=== PATIENT | male | born 1940 | race Caucasian/White ===

== ENCOUNTER → 2017-02-01 | Outpatient (CLI) | payer MEDICARE ==
[2017-02-01 10:10] LABS: Basophils % (A) 1 %; CH 30.8; CHCM 31.9; Eosinophils # (A) 0.3 k/uL (0-0.7); Eosinophils % (A) 6 %; HCT 44.3 % (39.0-53.0); HDW 2.13; Luc # (Auto) 0.11; Luc % (Auto) 3; Lymphocytes % (A) 22 %; MCH 30.7 pg (25.0-35.0); MCHC 31.7 g/dL (31.0-37.0); MCV 96.7 fL (80.0-100.0); Mean Platelet Volume 8.7; Monocytes # (A) 0.4 k/uL (0-1.0); Monocytes % (A) 8 %; Neutrophils # (A) 2.6 k/uL (1.3-7.7); Neutrophils % (A) 60 %; RBC 4.58 m/uL (4.30-5.90); WBC 4.3 k/uL (3.8-10.6); WBC (Perox) 4.31
[2017-02-01 11:37] LABS: ALT 38 U/L (21-72); AST 25 U/L (17-59); Alkaline Phosphatase 68 U/L (38-126); Anion Gap 8 mmol/L; Blood Urea Nitrogen 26 mg/dL (9-20); Calcium 9.9 mg/dL (8.4-10.2); Carbon Dioxide 30 mmol/L (22-30); Chloride 106 mmol/L (98-107); Cholesterol 167 mg/dL (<200); Glucose 95 mg/dL (74-99); HDL Cholesterol 63 mg/dL (40-60); Non-African American GFR(MDRD) >60 (>60 ml/min/1.73 sqM); Sodium 144 mmol/L (137-145)
== END | disposition home or self-care (01) ==
LOC: LABWHC1 08:32
PROVIDERS: ATTEND Internal Medicine Critical Care Medicine
DX: I10 Essential (primary) hypertension (principal); E78.5 Hyperlipidemia, unspecified; J45.909 Unspecified asthma, uncomplicated; R97.20 Elevated prostate specific antigen [PSA]; Z12.5 Encounter for screening for malignant neoplasm of prostate
CPT/HCPCS: 84439; 80061; 80053; 84443; 85025; 82306; 83036; 36415; G0103

== ENCOUNTER → 2018-02-14 | Outpatient (CLI) | payer MEDICARE, MEDICAID ==
[2018-02-14 11:16] LABS: Basophils % (A) 0 %; Eosinophils # (A) 0.2 k/uL (0-0.7); Eosinophils % (A) 4 %; HCT 42.5 % (39.0-53.0); HGB 13.5 gm/dL (13.0-17.5); Lymphocytes # (A) 1.1 k/uL (1.0-4.8); Lymphocytes % (A) 22 %; MCH 30.5 pg (25.0-35.0); MCHC 31.8 g/dL (31.0-37.0); MCV 95.9 fL (80.0-100.0); Mean Platelet Volume 7.6; Monocytes # (A) 0.4 k/uL (0-1.0); Monocytes % (A) 7 %; Neutrophils # (A) 3.3 k/uL (1.3-7.7); Neutrophils % (A) 64 %; Platelet Count 191 k/uL (150-450); RBC 4.43 m/uL (4.30-5.90); WBC 5.1 k/uL (3.8-10.6)
[2018-02-14 16:20] LABS: Albumin 4.5 g/dL (3.80-4.90); Albumin/Globulin Ratio 2.37 (1.20-2.10); Anion Gap 5.5 mmol/L (4.00-12.00); Calcium 9.8 mg/dL (8.7-10.3); Carbon Dioxide 30.5 mmol/L (21.6-31.8); Globulin 1.9 g/dL (2.1-3.7); Potassium 4.9 mmol/L (3.5-5.5); Total Bilirubin 0.7 mg/dL (0.3-1.2); Total Protein 6.4 g/dL (6.2-8.2)
[2018-02-14 16:29] LABS: T4, Free (Free Thyroxine) 1.3 ng/dL (0.80-1.80)
[2018-02-14 23:36] LABS: Hemoglobin A1C 5.1 % (4.0-6.0)
== END | disposition home or self-care (01) ==
LOC: LABWHC1 09:35
PROVIDERS: ATTEND Internal Medicine Critical Care Medicine
DX: I10 Essential (primary) hypertension (principal); J45.909 Unspecified asthma, uncomplicated; E78.00 Pure hypercholesterolemia, unspecified; J30.2 Other seasonal allergic rhinitis; R05 Cough; Z12.5 Encounter for screening for malignant neoplasm of prostate
CPT/HCPCS: 84439; 80061; 80053; 84443; 85025; 82306; 83036; 36415; G0103

== ENCOUNTER 2018-12-14 15:26 | Inpatient (IN) | payer MEDICARE, MEDICAID ==
[2018-12-14] MEDS ORDERED: DILTIAZEM DRIP BOLUS FROM BAG 1 MG SOLN IV ONE (16:41)
[2018-12-14] MEDS ORDERED: SODIUM CHLORIDE 0.9% 500 ML 500 ML IV STA (16:41)
[2018-12-14] MEDS ORDERED: SODIUM CHLORIDE 0.9% 1,000 ML IV STA (16:41)
[2018-12-14] MEDS ORDERED: DILTIAZEM 125 MG in SODIUM CHLORIDE 0.9% 100 ML IV SCH (16:45)
--- NOTE | 2018-12-14 16:46 | ED ---
Arrhythmia/Palpitations HPI - General Chief Complaint: Arrhythmia/Palpitations Stated Complaint: AFib Time Seen by Provider: 12/14/18 16:20 Source: patient, RN notes reviewed, old records reviewed Mode of arrival: ambulatory Limitations: no limitations - History of Present Illness Initial Comments: This is an 78-year-old male to ER for evaluation of elevated heart rate. Patient presents today from primary care's office, Dr. Ramos, for evaluation regards to irregular heart rate there were told by Dr. Mitchell she has atrial fibrillation. states patient's been some difficulty with breathing and shortness of breath at night, coughing and wheezing. Patient himself believes that he is waking up with some shortness of breath and especially has had it with activity. This was all related to asthma is been increasing amount of use of his rescue inhaler with no improvement. Significant travel history no [id number] to 4 days as well as to [place]. Symptoms have been persistent. Inhaler does not seem to help. No chest pain. No recent change in medications, denies any drug or alcohol. Patient does have high blood pressure, high cholesterol, with adult onset asthma MD Complaint: rapid heart beat, "heart racing" -: week(s) Context: occurred during exertion Arrhythmia History: atrial fibrillation Associated Symptoms: shortness of breath Treatments Prior to Arrival: other (No change in medications) - Related Data Home Medications Medication Instructions Recorded Confirmed Albuterol Sulfate [Proair Hfa] 1 - 2 puff INHALATION Q6HR PRN 12/14/18 12/14/18 Aspirin EC [Ecotrin Low Dose] 81 mg PO DAILY 12/14/18 12/14/18 Atorvastatin Calcium [Lipitor] 10 mg PO DAILY 12/14/18 12/14/18 Lisinopril-Hctz 10-12.5 mg 1 tab PO DAILY 12/14/18 12/14/18 [Zestoretic 10-12.5] amLODIPine [Norvasc] 5 mg PO DAILY 12/14/18 12/14/18 Allergies Allergy/AdvReac Type Severity Reaction Status Date / Time No Known Allergies Allergy Verified 12/14/18 16:47 Review of Systems ROS Statement: Those systems with pertinent positive or pertinent negative responses have been documented in the HPI. ROS Other: All systems not noted in ROS Statement are negative. Past Medical History Past Medical History: Asthma, Hyperlipidemia, Hypertension History of Any Multi-Drug Resistant Organisms: None Reported Past Surgical History: Appendectomy, Hernia Repair Past Psychological History: No Psychological Hx Reported Smoking Status: Never smoker Past Alcohol Use History: Daily Past Drug Use History: None Reported General Exam Limitations: no limitations General appearance: alert, in no apparent distress Head exam: Present: atraumatic, normocephalic, normal inspection Eye exam: Present: normal appearance, EOMI. Absent: scleral icterus, conjunctiv al injection, periorbital swelling ENT exam: Present: normal exam, mucous membranes moist Neck exam: Present: normal inspection. Absent: tenderness, meningismus, lymphadenopathy Respiratory exam: Present: normal lung sounds bilaterally. Absent: respiratory distress, wheezes, rales, rhonchi, stridor Cardiovascular Exam: Present: tachycardia, irregular rhythm, normal heart sounds. Absent: systolic murmur, diastolic murmur, rubs, gallop, clicks GI/Abdominal exam: Present: soft, normal bowel sounds. Absent: distended, tenderness, guarding, rebound, rigid Extremities exam: Present: normal inspection, full ROM, normal capillary refill. Absent: tenderness, pedal edema, joint swelling, calf tenderness Back exam: Present: normal inspection Neurological exam: Present: alert, oriented X3, CN II-XII intact Psychiatric exam: Present: normal affect, normal mood Skin exam: Present: warm, dry, intact, normal color. Absent: rash Course Vital Signs 12/14/18 12/14/18 12/14/18 15:38 17:13 18:10 Temperature 97.8 F Pulse Rate 114 H 126 H 88 Respiratory 18 18 18 Rate Blood Pressure 150/85 125/93 129/90 O2 Sat by Pulse 92 L 93 L 94 L Oximetry 12/14/18 19:43 Temperature Pulse Rate 91 Respiratory 18 Rate Blood Pressure 133/109 O2 Sat by Pulse 92 L Oximetry - Reevaluation(s) Reevaluation #1: 12/14/18 16:46 Medical records reviewed Reevaluation #2: 12/14/18 19:55 Patient remains fairly asymptomatic throughout ER stay - Consultations Consultation #1: spoke with Dr Miller who is okay for hospitalist admission EKG Findings - EKG Comments: EKG Findings:: EKG shows atrial fibrillation rate 111, QRS 96, QTc 465 Medical Decision Making - Medical Decision Making 78 male the ER new-onset atrial flutter ablation with RVR. Patient be admitted, left pulmonary consult as well. Cardiology consult. - Lab Data Result diagrams: 12/14/18 16:34 12/14/18 16:34 Lab Results 12/14/18 12/14/18 12/14/18 Range/Units 16:34 16:34 16:34 WBC 6.7 (3.8-10.6) k/uL RBC 4.24 L (4.30-5.90) m/uL Hgb 13.5 (13.0-17.5) gm/dL Hct 40.6 (39.0-53.0) % MCV 95.6 (80.0-100.0) fL MCH 31.7 (25.0-35.0) pg MCHC 33.2 (31.0-37.0) g/dL RDW 13.5 (11.5-15.5) % Plt Count 168 (150-450) k/uL Neutrophils % 66 % Lymphocytes % 18 % Monocytes % 9 % Eosinophils % 3 % Basophils % 1 % Neutrophils # 4.4 (1.3-7.7) k/uL Lymphocytes # 1.2 (1.0-4.8) k/uL Monocytes # 0.6 (0-1.0) k/uL Eosinophils # 0.2 (0-0.7) k/uL Basophils # 0.0 (0-0.2) k/uL PT (9.0-12.0) sec INR (<1.2) APTT (22.0-30.0) sec D-Dimer (<0.60) mg/L FEU Sodium 140 (137-145) mmol/L Potassium 4.4 (3.5-5.1) mmol/L Chloride 103 (98-107) mmol/L Carbon Dioxide 27 (22-30) mmol/L Anion Gap 10 mmol/L BUN 24 H (9-20) mg/dL Creatinine 0.97 (0.66-1.25) mg/dL Est GFR (CKD-EPI)AfAm 86 (>60 ml/min/1.73 sqM) Est GFR (CKD-EPI)NonAf 74 (>60 ml/min/1.73 sqM) Glucose 94 (74-99) mg/dL Calcium 9.5 (8.4-10.2) mg/dL Phosphorus 3.4 (2.5-4.5) mg/dL Magnesium 1.9 (1.6-2.3) mg/dL Total Bilirubin 0.7 (0.2-1.3) mg/dL AST 33 (17-59) U/L ALT 36 (21-72) U/L Alkaline Phosphatase 72 (38-126) U/L Troponin I (0.000-0.034) ng/mL NT-Pro-B Natriuret Pep 1580 pg/mL Total Protein 7.0 (6.3-8.2) g/dL Albumin 4.3 (3.5-5.0) g/dL TSH 1.850 (0.465-4.680) mIU/L 12/14/18 12/14/18 Range/Units 16:34 17:44 WBC (3.8-10.6) k/uL RBC (4.30-5.90) m/uL Hgb (13.0-17.5) gm/dL Hct (39.0-53.0) % MCV (80.0-100.0) fL MCH (25.0-35.0) pg MCHC (31.0-37.0) g/dL RDW (11.5-15.5) % Plt Count (150-450) k/uL Neutrophils % % Lymphocytes % % Monocytes % % Eosinophils % % Basophils % % Neutrophils # (1.3-7.7) k/uL Lymphocytes # (1.0-4.8) k/uL Monocytes # (0-1.0) k/uL Eosinophils # (0-0.7) k/uL Basophils # (0-0.2) k/uL PT 10.6 (9.0-12.0) sec INR 1.0 (<1.2) APTT 23.6 (22.0-30.0) sec D-Dimer 0.41 (<0.60) mg/L FEU Sodium (137-145) mmol/L Potassium (3.5-5.1) mmol/L Chloride (98-107) mmol/L Carbon Dioxide (22-30) mmol/L Anion Gap mmol/L BUN (9-20) mg/dL Creatinine (0.66-1.25) mg/dL Est GFR (CKD-EPI)AfAm (>60 ml/min/1.73 sqM) Est GFR (CKD-EPI)NonAf (>60 ml/min/1.73 sqM) Glucose (74-99) mg/dL Calcium (8.4-10.2) mg/dL Phosphorus (2.5-4.5) mg/dL Magnesium (1.6-2.3) mg/dL Total Bilirubin (0.2-1.3) mg/dL AST (17-59) U/L ALT (21-72) U/L Alkaline Phosphatase (38-126) U/L Troponin I 0.019 (0.000-0.034) ng/mL NT-Pro-B Natriuret Pep pg/mL Total Protein (6.3-8.2) g/dL Albumin (3.5-5.0) g/dL TSH (0.465-4.680) mIU/L - Radiology Data Radiology results: report reviewed (CTA chest negative for acute disease), image reviewed Disposition Clinical Impression: Atrial fibrillation, Atrial fibrillation with RVR Disposition: ADMITTED IP TO THIS HOSP Condition: Good Is patient prescribed a controlled substance at d/c from ED?: No Referrals: Domenic Corado DO [Primary Care Provider] - 1-2 days
[2018-12-14 17:15] LABS: Basophils % (A) 1 %; Eosinophils # (A) 0.2 k/uL (0-0.7); Eosinophils % (A) 3 %; HCT 40.6 % (39.0-53.0); HGB 13.5 gm/dL (13.0-17.5); Lymphocytes # (A) 1.2 k/uL (1.0-4.8); Lymphocytes % (A) 18 %; MCH 31.7 pg (25.0-35.0); MCHC 33.2 g/dL (31.0-37.0); MCV 95.6 fL (80.0-100.0); Mean Platelet Volume 8.3; Monocytes # (A) 0.6 k/uL (0-1.0); Monocytes % (A) 9 %; Neutrophils # (A) 4.4 k/uL (1.3-7.7); Neutrophils % (A) 66 %; Platelet Count 168 k/uL (150-450); RBC 4.24 m/uL (4.30-5.90); RDW 13.5 % (11.5-15.5); WBC 6.7 k/uL (3.8-10.6)
[2018-12-14 17:19] LABS: Albumin 4.3 g/dL (3.5-5.0); Calcium 9.5 mg/dL (8.4-10.2); Magnesium 1.9 mg/dL (1.6-2.3); Phosphorus 3.4 mg/dL (2.5-4.5); Potassium 4.4 mmol/L (3.5-5.1); Total Bilirubin 0.7 mg/dL (0.2-1.3)
[2018-12-14 18:13] LABS: D-Dimer 0.41 mg/L FEU (<0.60); Partial Thromboplastin Time 23.6 sec (22.0-30.0); Prothrombin Time 10.6 sec (9.0-12.0)
--- NOTE | 2018-12-14 19:39 | CT ---
EXAMINATION TYPE: CT angio chest DATE OF EXAM: 12/14/2018 7:32 PM COMPARISON: None HISTORY: Shortness of breath and Afib. CT DLP: 490.2 mGycm Automated exposure control for dose reduction was used. CONTRAST: CTA scan of the thorax is performed with IV Contrast, patient injected with 90ml mL of Isovue 370, pu lmonary embolism protocol. . There are 3-D post processed images. FINDINGS: There are small bilateral pleural effusions. Heart is enlarged. There is no evidence of a pulmonary m ass. There is slight coarsening of interstitial markings. There is 5 cm aneurysm of the ascending aor ta. There is no sign of dissection. There is normal contrast opacification of the pulmonary arteries. There are no filling defects. There is some patchy infiltrate and atelectasis at the posterior lung bases. There are scattered subpleural nodular densities in both lungs without calcification. These measure u p to 9 mm. There is spurring in the thoracic spine. I see no bony destructive process. There is no compression f racture. The ribs appear intact. IMPRESSION: NO EVIDENCE OF PULMONARY EMBOLISM. CARDIOMEGALY. 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 PLEURAL EFFUSIONS WITH MILD BASILAR PULMONARY INFILTRATES AND ATELECTASIS. MULTIPLE BILATERAL SMALL P ERIPHERAL NONCALCIFIED PULMONARY NODULES.
[2018-12-14] MEDS ORDERED: HEPARIN SODIUM,PORCINE 5,000 UNIT/ML 1 ML VIAL IV PRN (19:53)
[2018-12-14] MEDS ORDERED: ASPIRIN 81 MG PO STA (19:53)
[2018-12-14] MEDS ORDERED: NITROGLYCERIN SL TABS 0.4 MG TAB SUBLINGUAL PRN (19:53)
[2018-12-14] MEDS ORDERED: HEPARIN SODIUM,PORCINE 5,000 UNIT/ML 1 ML VIAL IV ONE (19:53)
[2018-12-14] MEDS ORDERED: HEPARIN SOD,PORK IN 0.45% NACL 25,000 UNIT in 0.45% NACL 1 250ML.BAG IV SCH (20:00)
[2018-12-14] MEDS: METOPROLOL TARTRATE 25 MG TAB PO SCH (22:45)
[2018-12-15 06:36] LABS: Mean Platelet Volume 8.3; Platelet Count 155 k/uL (150-450)
[2018-12-15 06:43] LABS: Cholesterol 131 mg/dL (<200); HDL Cholesterol 60 mg/dL (40-60); LDL Cholesterol,Calculated 60 mg/dL (0-99); Triglycerides 55 mg/dL (<150)
[2018-12-15] MEDS: METOPROLOL TARTRATE 25 MG TAB PO SCH ×2 (08:53→19:54)
[2018-12-15] MEDS ORDERED: ASPIRIN 325 MG TAB PO SCH (09:00)
[2018-12-15] MEDS ORDERED: ALBUTEROL NEBULIZED 2.5 MG/3 ML INHALATION PRN (09:43)
--- NOTE | 2018-12-15 10:41 | P.HPIM ---
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 fib with rapid ventricular rate was started on Cardizem patient was given metoprolol today. Patient doesn't have any fever chills nausea vomiting patient had a CAT scan of the chest which did not show any PE but did show some pulmonary nodules along with bilateral pleural effusions. Patient does have minimally elevated JVD and the patient to BNP is elevated up to 1200 not he high. Was having some cough patient initially believed he has an asthma attack and did they use an inhaler which helped a bit. Patient presently doesn't have any wheezing. Review of Systems REVIEW OF SYSTEMS: CONSTITUTIONAL: No fever, no malaise, no fatigue. HEENT: No recent visual problems or hearing problems. Denied any sore throat. CARDIOVASCULAR: No chest pain, as mentioned in HPI PULMONARY: no hemoptysis. GASTROINTESTINAL: No diarrhea, no nausea, no vomiting, no abdominal pain. NEUROLOGICAL: No headaches, no weakness, no numbness. HEMATOLOGICAL: Denies any bleeding or petechiae. GENITOURINARY: Denies any burning micturition, frequency, or urgency. MUSCULOSKELETAL/RHEUMATOLOGICAL: Denies any joint pain, swelling, or any muscle pain. ENDOCRINE: Denies any polyuria or polydipsia. The rest of the 14-point review of systems is negative. Past Medical History Past Medical History: Asthma, Hyperlipidemia, Hypertension History of Any Multi-Drug Resistant Organisms: None Reported Past Surgical History: Appendectomy, Hernia Repair Past Psychological History: No Psychological Hx Reported Smoking Status: Never smoker Past Alcohol Use History: Daily Past Drug Use History: None Reported Medications and Allergies Home Medications Medication Instructions Recorded Confirmed Type Albuterol Sulfate [Proair Hfa] 1 - 2 puff INHALATION Q6HR PRN 12/14/18 12/14/18 History Aspirin EC [Ecotrin Low Dose] 81 mg PO DAILY 12/14/18 12/14/18 History Atorvastatin Calcium [Lipitor] 10 mg PO DAILY 12/14/18 12/14/18 History Lisinopril-Hctz 10-12.5 mg 1 tab PO DAILY 12/14/18 12/14/18 History [Zestoretic 10-12.5] amLODIPine [Norvasc] 5 mg PO DAILY 12/14/18 12/14/18 History Allergies Allergy/AdvReac Type Severity Reaction Status Date / Time No Known Allergies Allergy Verified 12/14/18 16:47 Physical Exam Vitals: Vital Signs Temp Pulse Pulse Resp BP BP Pulse Ox 12/15/18 08:00 92 12/15/18 07:52 94 L 12/15/18 07:51 98.6 F 92 17 151/85 94 L 12/15/18 03:06 98 F 92 18 101/74 91 L 12/14/18 23:00 97.9 F 112 H 18 133/101 95 12/14/18 22:30 98.0 F 78 18 135/101 95 12/14/18 21:23 88 18 123/88 94 L 12/14/18 19:43 91 18 133/109 92 L 12/14/18 18:10 88 18 129/90 94 L 12/14/18 17:13 126 H 18 125/93 93 L 12/14/18 15:38 97.8 F 114 H 18 150/85 92 L Intake and Output 12/14/18 12/15/18 12/15/18 22:59 06:59 14:59 Intake Total 578.167 Balance 578.167 Intake: Intake, IV Titration 98.167 Amount Heparin Sod,Pork in 0.45% 98.167 NaCl 25,000 unit In 0.45 % NaCl 1 250ml.bag @ 10. 968 UNITS/KG/HR 10 mls/hr IV .Q24H [facility] Rx#: [id number] Oral 480 Other: Voiding Method Toilet # Voids 1 Weight 91.172 kg 93.3 kg PHYSICAL EXAMINATION: GENERAL: The patient is alert and oriented x3, not in any acute distress. Well developed, well nourished. HEENT: Pupils are round and equally reacting to light. EOMI. No scleral icterus. No conjunctival pallor. Normocephalic, atraumatic. No pharyngeal erythema. No thyromegaly. CARDIOVASCULAR: S1 and S2 present. No murmurs, rubs, or gallops. As have elevated JVD but this was examined at 90 angle. PULMONARY: Air entry into bilateral lung guadalupe bibasilar crackles on exam ABDOMEN: Soft, nontender, nondistended, normoactive bowel sounds. No palpable organomegaly. MUSCULOSKELETAL: No joint swelling or deformity. EXTREMITIES: No cyanosis, clubbing, 2+ pitting pedal pedal edema bilateral NEUROLOGICAL: Gross neurological examination did not reveal any focal deficits. SKIN: No rashes. Results CBC & Chem 7: 12/15/18 06:04 12/14/18 16:34 Labs: Abnormal Lab Results - Last 24 Hours (Table) 12/14/18 12/14/18 12/14/18 Range/Units 16:34 16:34 22:58 RBC 4.24 L (4.30-5.90) m/uL APTT 53.0 H (22.0-30.0) sec BUN 24 H (9-20) mg/dL 12/15/18 Range/Units 06:04 RBC (4.30-5.90) m/uL APTT 34.5 H (22.0-30.0) sec BUN (9-20) mg/dL Thrombosis Risk Factor Assmnt - Choose All That Apply Each Risk Factor Represents 3 Points: Age 75 years or older Thrombosis Risk Factor Assessment Total Risk Factor Score: 3 Thrombosis Risk Factor Assessment Level: Moderate Risk Assessment and Plan Plan: -Shortness of breath: Probably secondary to atrial fibrillation there may be a competent of heart failure from A. fib we'll obtain echocardiogram metoprolol will be continued Cardizem will be discontinued. Cardiology will evaluate the patient, had an ejection fraction of around 60-65% in 2016 -Possible congestive heart failure ejection fraction is unknown -Multiple noncalcified pulmonary nodules: Pulmonology was consulted -Atrial fibrillation with rapid ventricular rate presently rate controlled this can you Cardizem -Asthma without any acute exacerbation -Hyperlipidemia -Hypertension
[2018-12-15] MEDS: FUROSEMIDE 10 MG/ML 4 ML VIAL IV SCH ×2 (11:00→12:42)
--- NOTE | 2018-12-15 11:47 | P.CRDCN ---
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 According to the patient, a couple of weeks ago the patient had noticed himself to be somewhat short of breath in the mornings, he states that he would hernandez and puff upon wakening in the morning. He did take a trip to [place] and subsequent to that he also took a trip to [facility]. Patient states that he then woke up at night short of breath which concerned him somewhat. He did have a rescue inhaler which he used, states that he got some with that. Patient also states that when the morning dyspnea started he also started to develop some swelling in his bilateral lower extremities. He denies any palpitations. Patient went to see Dr. Corado his primary care physician, determined that he likely had an exacerbation of his asthma. While in the office, and EKG was performed which showed atrial fibrillation with a rapid ventricular response and the patient was advised to come to the hospital for further evaluation and treatment. His EKG on presentation here showed atrial fibrillation with a rapid ventricular response, occasional PVCs. A CTA of the chest was performed which did not reveal evidence of a pulmonary embolism, it did show a 5 cm aneurysm of the ascending aorta with no sign of dissection. Scattered subpleural nodular densities in both lungs without calcification noted. These measure up to 9 mm. Blood pressure on arrival here 150/85 with a heart rate of 114, 92% on room air. Afebrile. White blood cell count 6.7, hemoglobin 13.5, platelet count 168. D- dimer 0.41, sodium 140, potassium 4.4, BUN 24 and creatinine 0.9. BNP level 1580. Troponins .019, .018, .014.TSH 1.85. At the time of my examination, and continues to be in atrial fibrillation, he is on an IV Cardizem drip currently and his heart rate is 90 , he is also on IV heparin. Past Medical History Past Medical History: Asthma, Hyperlipidemia, Hypertension History of Any Multi-Drug Resistant Organisms: None Reported Past Surgical History: Appendectomy, Hernia Repair Past Psychological History: No Psychological Hx Reported Smoking Status: Never smoker Past Alcohol Use History: Daily Past Drug Use History: None Reported Medications and Allergies Home Medications Medication Instructions Recorded Confirmed Type Albuterol Sulfate [Proair Hfa] 1 - 2 puff INHALATION Q6HR PRN 12/14/18 12/14/18 History Aspirin EC [Ecotrin Low Dose] 81 mg PO DAILY 12/14/18 12/14/18 History Atorvastatin Calcium [Lipitor] 10 mg PO DAILY 12/14/18 12/14/18 History Lisinopril-Hctz 10-12.5 mg 1 tab PO DAILY 12/14/18 12/14/18 History [Zestoretic 10-12.5] amLODIPine [Norvasc] 5 mg PO DAILY 12/14/18 12/14/18 History Allergies Allergy/AdvReac Type Severity Reaction Status Date / Time No Known Allergies Allergy Verified 12/14/18 16:47 Physical Exam Vitals: Vital Signs Temp Pulse Pulse Resp BP BP Pulse Ox 12/15/18 08:00 92 12/15/18 07:52 94 L 12/15/18 07:51 98.6 F 92 17 151/85 94 L 12/15/18 03:06 98 F 92 18 101/74 91 L 12/14/18 23:00 97.9 F 112 H 18 133/101 95 12/14/18 22:30 98.0 F 78 18 135/101 95 12/14/18 21:23 88 18 123/88 94 L 12/14/18 19:43 91 18 133/109 92 L 12/14/18 18:10 88 18 129/90 94 L 12/14/18 17:13 126 H 18 125/93 93 L 12/14/18 15:38 97.8 F 114 H 18 150/85 92 L Intake and Output 12/14/18 12/15/18 12/15/18 22:59 06:59 14:59 Intake Total 578.167 Balance 578.167 Intake: Intake, IV Titration 98.167 Amount Heparin Sod,Pork in 0.45% 98.167 NaCl 25,000 unit In 0.45 % NaCl 1 250ml.bag @ 10. 968 UNITS/KG/HR 10 mls/hr IV .Q24H [facility] Rx#: [id number] Oral 480 Other: Voiding Method Toilet # Voids 1 Weight 91.172 kg 93.3 kg PHYSICAL EXAMINATION: GENERAL: 78-year-old gentleman in no acute distress at the time of my examination HEENT: Head is atraumatic, normocephalic. Pupils equal, round. Sclera anicteric. Conjunctiva are clear. Mucous membranes of the mouth are moist. Neck is supple. There is elevated jugular venous pressure. No carotid bruit is heard. HEART EXAMINATION: Heart S1 and S2 irregularly irregular CHEST EXAMINATION: Lungs reveal diminished air entry to bilateral bases ABDOMEN: Soft, nontender. Bowel sounds are heard. No organomegaly noted. EXTREMITIES: 2+ peripheral pulses with 1-2+ evidence of peripheral edema. NEUROLOGIC patient is awake, alert and oriented 3 . . Results 12/15/18 06:04 12/14/18 16:34 Cardiac Enzymes 12/14/18 12/14/18 12/14/18 Range/Units 16:34 16:34 22:58 AST 33 (17-59) U/L Troponin I 0.019 0.018 (0.000-0.034) ng/mL 12/15/18 Range/Units 06:04 AST (17-59) U/L Troponin I 0.014 (0.000-0.034) ng/mL Coagulation 12/14/18 12/14/18 12/15/18 Range/Units 17:44 22:58 06:04 PT 10.6 (9.0-12.0) sec APTT 23.6 53.0 H 34.5 H (22.0-30.0) sec Lipids 12/15/18 Range/Units 06:04 Triglycerides 55 (<150) mg/dL Cholesterol 131 (<200) mg/dL HDL Cholesterol 60 (40-60) mg/dL CBC 12/14/18 12/15/18 Range/Units 16:34 06:04 WBC 6.7 (3.8-10.6) k/uL RBC 4.24 L (4.30-5.90) m/uL Hgb 13.5 (13.0-17.5) gm/dL Hct 40.6 (39.0-53.0) % Plt Count 168 155 (150-450) k/uL Comprehensive Metabolic Panel 12/14/18 Range/Units 16:34 Sodium 140 (137-145) mmol/L Potassium 4.4 (3.5-5.1) mmol/L Chloride 103 (98-107) mmol/L Carbon Dioxide 27 (22-30) mmol/L BUN 24 H (9-20) mg/dL Creatinine 0.97 (0.66-1.25) mg/dL Glucose 94 (74-99) mg/dL Calcium 9.5 (8.4-10.2) mg/dL AST 33 (17-59) U/L ALT 36 (21-72) U/L Alkaline Phosphatase 72 (38-126) U/L Total Protein 7.0 (6.3-8.2) g/dL Albumin 4.3 (3.5-5.0) g/dL Current Medications Generic Name Dose Route Start Last Admin Trade Name Freq PRN Reason Stop Dose Admin Albuterol Sulfate 2.5 mg 12/15/18 09:43 Ventolin Nebulized INHALATION RT-Q6H PRN Shortness Of Breath Aspirin 81 mg 12/16/18 09:00 Aspirin PO DAILY [facility] Atorvastatin Calcium 10 mg 12/16/18 09:00 Lipitor PO DAILY [facility] Heparin Sodium (Porcine) 0 unit 12/14/18 19:53 Heparin IV Q6HR PRN Low PTT Protocol Diltiazem HCl 125 mg/ Sodium 125 mls @ 5 mls/hr 12/14/18 16:45 12/14/18 17:21 Chloride IV 5 mg/hr .Q24H [facility] 5 mls/hr Administration 5 MG/HR Heparin Sodium/Sodium Chloride 250 mls @ 10 mls/hr 12/14/18 20:00 12/15/18 07:08 25,000 unit/ Sodium Chloride IV 13.968 units/kg/hr .Q24H [facility] 12.735 mls/hr Titration Protocol 10.968 UNITS/KG/HR Metoprolol Tartrate 25 mg 12/14/18 21:00 12/15/18 08:53 Lopressor PO 25 mg BID [facility] Administration Nitroglycerin 0.4 mg 12/14/18 19:53 Nitrostat SUBLINGUAL Q5M PRN Chest Pain Intake and Output 10/02/19 10/03/19 10/03/19 22:59 06:59 14:59 Intake Total 578.167 Balance 578.167 Intake: Intake, IV Titration 98.167 Amount Heparin Sod,Pork in 0.45% 98.167 NaCl 25,000 unit In 0.45 % NaCl 1 250ml.bag @ 10. 968 UNITS/KG/HR 10 mls/hr IV .Q24H [facility] Rx#: [id number] Oral 480 Other: Voiding Method Toilet # Voids 1 Weight 91.172 kg 93.3 kg 12/15/18 06:04 12/14/18 16:34 EKG Interpretations (text) EKG shows atrial fibrillation with moderately rapid ventricular response and occasional PVCs Assessment and Plan Plan: Assessment and plan #1 atrial fibrillation with rapid ventricular response, appears to be of new onset for the patient, currently on IV Cardizem and IV heparin #2 congestive heart failure, could be secondary to A. fib with RVR, LV function unknown at this time #3 hypertension #4 hyperlipidemia #5 prior history of asthma #6 daily alcohol use, at least 2 cocktails per day #7 evidence of pulmonary nodules on CAT scan measuring up to 9 mm, 5 cm aneurysm of the ascending aorta documented. Plan We will obtain an echocardiogram with Doppler study, check a TSH level. The patient has been educated regarding the importance of anticoagulation for stroke prevention, we'll start the patient on Eliquis 5 mg one tablet by mouth twice a day. We will start the patient on a beta stan and discontinue the Cardizem drip. DNP note has been reviewed, I agree with a documented findings and plan of care. Patient was seen and examined.
[2018-12-15] MEDS ORDERED: FUROSEMIDE 10 MG/ML 4 ML VIAL IV SCH (12:00)
[2018-12-15] MEDS: APIXABAN 5 MG TAB PO SCH ×2 (12:42→19:51)
--- NOTE | 2018-12-15 13:16 | P.CNPUL ---
History of Present Illness Consult date: 12/15/18 Requesting physician: Rudi Garcia Reason for consult: dyspnea Chief complaint: Shortness of breath, A. 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 Denied any chest pain, denied any palpitations, no fever or chills, his cough is dry, denies any chest congestion, he has been using his Pro-Air inhaler 1 dose episodes, he also noticed increasing swelling in his lower extremities. His symptoms of shortness of breath would resolve during the day. Patient attributed his symptoms to asthma exacerbation. Over the last couple weeks dyspnea progressed, patient is has been waking up in the middle of the night dyspneic. He went to see Dr. Monge in the pulmonary clinic yesterday on 12/14/2018, and was found to be in new onset of A. fib with rapid ventricular response. He was sent to the emergency department for evaluation. EKG showed A. fib with a rate of 111, and evidence of septal infarct of undetermined age. Lab work showed normal white count of 6.7, hemoglobin of 13.5, electro lites are within normal limits, B1 is 24 creatinine 0.97, LFTs were within normal limits, proBNP was 1580, troponins were negative at 0.019, 0.018, and 0.014, TSH was normal at 1.850. 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 Review of Systems All systems: negative Constitutional: Denies chills, Denies fever Eyes: denies blurred vision, denies pain Ears, nose, mouth and throat: Denies headache, Denies sore throat Cardiovascular: Reports edema, Reports leg edema, Reports paroxysmal nocturnal dyspnea, Reports shortness of breath, Denies chest pain Respiratory: Denies cough Gastrointestinal: Denies abdominal pain, Denies diarrhea, Denies nausea, Denies vomiting Musculoskeletal: Denies myalgias Integumentary: Denies pruritus, Denies rash Neurological: Denies numbness, Denies weakness Psychiatric: Denies anxiety, Denies depression Endocrine: Denies fatigue, Denies weight change Past Medical History Past Medical History: Asthma, Hyperlipidemia, Hypertension History of Any Multi-Drug Resistant Organisms: None Reported Past Surgical History: Appendectomy, Hernia Repair Past Psychological History: No Psychological Hx Reported Smoking Status: Never smoker Past Alcohol Use History: Daily Past Drug Use History: None Reported Medications and Allergies Home Medications Medication Instructions Recorded Confirmed Type Albuterol Sulfate [Proair Hfa] 1 - 2 puff INHALATION Q6HR PRN 12/14/18 12/14/18 History Aspirin EC [Ecotrin Low Dose] 81 mg PO DAILY 12/14/18 12/14/18 History Atorvastatin Calcium [Lipitor] 10 mg PO DAILY 12/14/18 12/14/18 History Lisinopril-Hctz 10-12.5 mg 1 tab PO DAILY 12/14/18 12/14/18 History [Zestoretic 10-12.5] amLODIPine [Norvasc] 5 mg PO DAILY 12/14/18 12/14/18 History Allergies Allergy/AdvReac Type Severity Reaction Status Date / Time No Known Allergies Allergy Verified 12/14/18 16:47 Physical Exam Vitals: Vital Signs Temp Pulse Pulse Resp BP BP Pulse Ox 12/15/18 12:03 97.5 F L 91 18 129/89 95 12/15/18 08:00 92 12/15/18 07:52 94 L 12/15/18 07:51 98.6 F 92 17 151/85 94 L 12/15/18 03:06 98 F 92 18 101/74 91 L 12/14/18 23:00 97.9 F 112 H 18 133/101 95 12/14/18 22:30 98.0 F 78 18 135/101 95 12/14/18 21:23 88 18 123/88 94 L 12/14/18 19:43 91 18 133/109 92 L 12/14/18 18:10 88 18 129/90 94 L 12/14/18 17:13 126 H 18 125/93 93 L 12/14/18 15:38 97.8 F 114 H 18 150/85 92 L Intake and Output 12/14/18 12/15/18 12/15/18 22:59 06:59 14:59 Intake Total 800.167 Balance 800.167 Intake: Intake, IV Titration 98.167 Amount Heparin Sod,Pork in 0.45% 98.167 NaCl 25,000 unit In 0.45 % NaCl 1 250ml.bag @ 10. 968 UNITS/KG/HR 10 mls/hr IV .Q24H [facility] Rx#: [id number] Oral 702 Other: Voiding Method Toilet # Voids 1 Weight 91.172 kg 93.3 kg GENERAL EXAM: Alert, very pleasant, 78-year-old white male, on 3 L of oxygen, with a pulse ox of 94% comfortable in no apparent distress. HEAD: Normocephalic/atraumatic. EYES: Normal reaction of pupils, equal size. Conjunctiva pink, sclera white. NOSE: Clear with pink turbinates. THROAT: No erythema or exudates. NECK: No masses, no JVD, no thyroid enlargement, no adenopathy. CHEST: No chest wall deformity. Symmetrical expansion. LUNGS: Equal air entry with limited crackles at the bases, wheeze, rhonchi or dullness. CVS: Regular rate and rhythm, normal S1 and S2, no gallops, no murmurs, no rubs ABDOMEN: Soft, nontender. No hepatosplenomegaly, normal bowel sounds, no guarding or rigidity. EXTREMITIES: No clubbing, 1+ bilateral lower extremity edema, no cyanosis, 2+ pulses and upper and lower extremities. MUSCULOSKELETAL: Muscle strength and tone normal. SPINE: No scoliosis or deformity SKIN: No rashes CENTRAL NERVOUS SYSTEM: Alert and oriented -3. No focal deficits, tone is nor mal in all 4 extremities. PSYCHIATRIC: Alert and oriented -3. Appropriate affect. Intact judgment and insight. Results - Laboratory Findings CBC and BMP: 12/15/18 06:04 12/14/18 16:34 PT/INR, D-dimer PT 10.6 sec (9.0-12.0) 12/14/18 17:44 INR 1.0 (<1.2) 12/14/18 17:44 D-Dimer 0.41 mg/L FEU (<0.60) 12/14/18 17:44 Abnormal lab findings: Abnormal Labs 12/14/18 12/14/18 12/14/18 16:34 16:34 22:58 RBC 4.24 L APTT 53.0 H BUN 24 H 12/15/18 06:04 RBC APTT 34.5 H BUN - Diagnostic Findings CT scan - chest: report reviewed, image reviewed Additional studies: EKG reviewed Assessment and Plan Plan: Assessment: #1. Acute exacerbation of congestive heart failure with previously documented preserved EF. No evidence of pulmonary embolism on CTA chest #2. New onset A. fib with RVR #3. Paroxysmal nocturnal dyspnea and lower extremity swelling #4. Mild intermittent bronchial asthma, currently stable #5. Multiple bilateral small peripheral noncalcified pulmonary nodules, measuring up to 9 mm, follow-up on outpatient basis #6. Hypertension #7. Never smoker #8. Hyperlipidemia Plan: Patient has been started on Cardizem, and heparin drip by cardiology, will be transitioned to oral anticoagulation, and tinea with the diuretics she is on 40 mg every 8 hours. Daily weights, accurate intake and output, CT chest results have been reviewed, owing no evidence of pulmonary embolism, did show multiple noncalcified pulmonary nodules peripherally up to 9 mm, to be followed on ou tpatient basis, echocardiogram is pending, patient is fairly comfortable, is on room air, denies any chest pain, denies any acute distress. No significant wheezing or congestion, asthma seems to be stable. We will continue to follow I performed a history & physical examination of the patient and discussed their management with my nurse practitioner, Belia Camacho. I reviewed the nurse practitioner's note and agree with the documented findings and plan of care. Lung sounds are positive for diminished breath sounds. The findings and the impression was discussed with the patient. I attest to the documentation by the nurse practitioner. Time with Patient: Greater than 30
[2018-12-15] MEDS ORDERED: METOPROLOL TARTRATE 25 MG TAB PO STA (22:11)
[2018-12-16 07:36] LABS: HCT 44.2 % (39.0-53.0); HGB 14.5 gm/dL (13.0-17.5); MCH 31.8 pg (25.0-35.0); MCHC 32.9 g/dL (31.0-37.0); MCV 96.6 fL (80.0-100.0); Mean Platelet Volume 7.4; Platelet Count 194 k/uL (150-450); RBC 4.57 m/uL (4.30-5.90); RDW 13.1 % (11.5-15.5); WBC 6.1 k/uL (3.8-10.6)
[2018-12-16 07:49] LABS: Calcium 9.3 mg/dL (8.4-10.2); Potassium 4.1 mmol/L (3.5-5.1)
[2018-12-16] MEDS: APIXABAN 5 MG TAB PO SCH ×2 (08:20→20:45)
[2018-12-16] MEDS ORDERED: ATORVASTATIN 10 MG TAB PO SCH (09:00)
[2018-12-16] MEDS ORDERED: LISINOPRIL-HCTZ 20-12.5 MG 1 EACH TAB PO SCH (09:00)
[2018-12-16] MEDS ORDERED: ASPIRIN 81 MG PO SCH (09:00)
[2018-12-16] MEDS ORDERED: LISINOPRIL-HCTZ 10-12.5 MG 1 EACH TAB PO SCH (09:00)
[2018-12-16] MEDS ORDERED: METOPROLOL TARTRATE 50 MG TAB PO SCH (09:00)
--- NOTE | 2018-12-16 10:01 | ECHOF ---
Referral Reason:a.fib MEASUREMENTS -------- HEIGHT: 185.4 cm WEIGHT: 93.0 kg BP: 151/85 RVIDd: 4.4 cm (< 3.3) IVSd: 1.7 cm (0.6 - 1.1) LVIDd: 5.2 cm (3.9 - 5.3) LVPWd: 1.7 cm (0.6 - 1.1) IVSs: 2.1 cm LVIDs: 3.6 cm LVPWs: 2.0 cm LAESV Index (A-L): 71.37 ml/m Ao Diam: 3.4 cm (2.0 - 3.7) AV Cusp: 2.2 cm (1.5 - 2.6) LA Diam: 6.3 cm (2.7 - 3.8) AR PHT: 439 ms RAP: 5.00 mmHg RVSP: 50.87 mmHg TAPSE: 34.21 mm FINDINGS -------- Atrial fibrillation. This was a technically adequate study. The left ventricular size is normal. There is moderate concentric left ventricular hypertrophy. O verall left ventricular systolic function is mildly impaired with, an EF between 45 - 50 %. Left ve ntricular fillimg pressure cannot be estimated due to Atrial fibrillation. The right ventricle is moderate to severely enlarged. LA is severely dilated >40 ml/m2 The right atrium is moderately enlarged. Interatrial and interventricular septum intact. The aortic valve is trileaflet and appears structurally normal. Trace to mild aortic regurgitation. There is no evidence of aortic stenosis. Mild mitral annular calcification present. Wgteyrlc-ma-diazdd mitral regurgitation is present. Moderate tricuspid regurgitation present. There is moderate to severe pulmonary hypertension. The right ventricular systolic pressure, as measured by Doppler, is 50.87mmHg. Trace/mild (physiologic) pulmonic regurgitation. The aortic root size is normal. IVC Not well visulized. There is no pericardial effusion. CONCLUSIONS -------- 1. Atrial fibrillation. 2. This was a technically adequate study. 3. The left ventricular size is normal. 4. There is moderate concentric left ventricular hypertrophy. 5. Left ventricular fillimg pressure cannot be estimated due to Atrial fibrillation. 6. The right ventricle is moderate to severely enlarged. 7. LA is severely dilated >40 ml/m2 8. The right atrium is moderately enlarged. 9. Interatrial and interventricular septum intact. 10. The aortic valve is trileaflet and appears structurally normal. 11. Trace to mild aortic regurgitation. 12. There is no evidence of aortic stenosis. 13. Mild mitral annular calcification present. 14. Irujfmty-pz-feizix mitral regurgitation is present. 15. Moderate tricuspid regurgitation present. 16. There is moderate to severe pulmonary hypertension. 17. The right ventricular systolic pressure, as measured by Doppler, is 50.87mmHg. 18. Trace/mild (physiologic) pulmonic regurgitation. 19. The aortic root size is normal. 20. IVC Not well visulized. 21. There is no pericardial effusion. LOGISTICS TECH: Naye Healy RDCS
--- NOTE | 2018-12-16 10:43 | US ---
EXAMINATION TYPE: US venous doppler duplex LE DATE OF EXAM: 12/16/2018 10:23 AM COMPARISON: NONE CLINICAL HISTORY: swelling. Leg swelling SIDE PERFORMED: Bilateral TECHNIQUE: The lower extremity deep venous system is examined utilizing real time linear array sonog jr with graded compression, doppler sonography and color-flow sonography. VESSELS IMAGED: External Iliac Vein (EIV) Common Femoral Vein Deep Femoral Vein Greater Saphenous Vein * Femoral Vein Popliteal Vein Small Saphenous Vein * Proximal Calf Veins (* superficial vessels) Grayscale, color doppler, spectral doppler imaging performed of the deep veins of the lower extremiti es. There is normal flow, compressibility, vascular waveforms. Right Leg: Negative for DVT Left Leg: Negative for DVT IMPRESSION: No sonographic evidence of deep venous thrombosis within either of the bilateral lower e xtremities.
--- NOTE | 2018-12-16 10:46 | P.PN ---
Subjective 78-year-old pleasant gentleman was admitted from new-onset atrial fibrillation with rapid ventricular rate patient was started on Eliquis patient is on metoprolol patient is rate controlled at this time. Patient did is also being treated for congestive heart failure echocardiac exam is not available shortness with improved crackles improved still has pedal edema patient has differentially when both legs because of which are often Doppler of bilateral lower extremities. Patient also has pulmonary nodules in the lung which will be evaluated as an outpatient. Patient is feeling better still remains on 40 mg twice a day of Lasix Constitutional: Denied any fatigue denied any fever. Cardio vascular: denied any chest pain, palpitations Gastrointestinal denied any nausea vomiting Pulmonary: Denied any shortness of breath cough Neurologic denied any new focal deficits All inpatient medications were reviewed and appropriate changes in these medications as dictated in the interval history and assessment and plan. Objective - Vital Signs Vital signs: Vital Signs Temp 97.6 F 12/16/18 07:41 Pulse 98 12/16/18 07:41 Resp 17 12/16/18 08:15 BP 141/82 12/16/18 07:41 Pulse Ox 96 12/16/18 07:41 Intake & Output 12/15/18 12/16/18 12/16/18 18:59 06:59 18:59 Intake Total 1060.167 360 Output Total 450 1150 Balance 610.167 -1150 360 Weight 92.8 kg Intake: IV 20 Sodium Chloride 0.9% 1, 20 000 ml @ 100 mls/hr IV . Q10H [facility] Rx#:[id number] Intake, IV Titration 98.167 Amount Heparin Sod,Pork in 0.45% 98.167 NaCl 25,000 unit In 0.45 % NaCl 1 250ml.bag @ 10. 968 UNITS/KG/HR 10 mls/hr IV .Q24H [facility] Rx#: [id number] Oral 942 360 Output: Urine 450 1150 Other: Voiding Method Toilet Toilet # Voids 3 2 - Exam PHYSICAL EXAMINATION: GENERAL: The patient is alert and oriented x3, not in any acute distress. Well developed, well nourished. HEENT: Pupils are round and equally reacting to light. EOMI. No scleral icterus. No conjunctival pallor. Normocephalic, atraumatic. No pharyngeal erythema. No thyromegaly. CARDIOVASCULAR: S1 and S2 present. No murmurs, rubs, or gallops. As have elevated JVD but this was examined at 90 angle. PULMONARY: Air entry into bilateral lung guadalupe bibasilar crackles on exam ABDOMEN: Soft, nontender, nondistended, normoactive bowel sounds. No palpable organomegaly. MUSCULOSKELETAL: No joint swelling or deformity. EXTREMITIES: No cyanosis, clubbing, 2+ pitting pedal pedal edema bilateral NEUROLOGICAL: Gross neurological examination did not reveal any focal deficits. SKIN: No rashes. - Labs CBC & Chem 7: 12/16/18 06:25 12/16/18 06:25 Labs: Abnormal Lab Results - Last 24 Hours (Table) 12/16/18 Range/Units 06:25 BUN 22 H (9-20) mg/dL Assessment and Plan Plan: -Shortness of breath: Probably secondary to atrial fibrillation there may be a competent of heart failure from A. fib we'll obtain echocardiogram metoprolol will be continued Cardizem will be discontinued. Cardiology will evaluate the patient, had an ejection fraction of around 60-65% in 2016, A. fib is well controlled patient is off her Cardizem patient was started on Eliquis -Possible congestive heart failure ejection fraction is unknown, patient does have a heart failure exacerbation -Bilateral pedal edema differentiated edema Doppler of the bilateral lower extremities -Multiple noncalcified pulmonary nodules: Pulmonology will work up is not uses an outpatient -Atrial fibrillation with rapid ventricular rate presently rate controlled, off Cardizem -Asthma without any acute exacerbation -Hyperlipidemia -Hypertension
[2018-12-16] MEDS: FUROSEMIDE 10 MG/ML 4 ML VIAL IV SCH ×2 (11:02→20:45)
--- NOTE | 2018-12-16 15:19 | P.PN ---
Subjective Progress Note Date: 12/16/18 Principal diagnosis: Onset A. 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 Denied any chest pain, denied any palpitations, no fever or chills, his cough is dry, denies any chest congestion, he has been using his Pro-Air inhaler 1 dose episodes, he also noticed increasing swelling in his lower extremities. His symptoms of shortness of breath would resolve during the day. Patient attributed his symptoms to asthma exacerbation. Over the last couple weeks dyspnea progressed, patient is has been waking up in the middle of the night dyspneic. He went to see Dr. Monge in the pulmonary clinic yesterday on 12/14/2018, and was found to be in new onset of A. fib with rapid ventricular response. He was sent to the emergency department for evaluation. EKG showed A. fib with a rate of 111, and evidence of septal infarct of undetermined age. Lab work showed normal white count of 6.7, hemoglobin of 13.5, electro lytes are within normal limits, B1 is 24 creatinine 0.97, LFTs were within normal limits, proBNP was 1580, troponins were negative at 0.019, 0.018, and 0.014, TSH was normal at 1.850. 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 On 12/16/2018 patient is seen in follow-up on selective care unit, he is awake and alert, in no acute distress, he states his breathing is improving, he continues to diurese, lower extremity edema is improving, he remains in A. fib with a controlled rate. Patient states last night was the first night in over a month and a half where he did not wake up short of breath. Lower extremity Dopplers were negative for evidence of DVT, patient is on Eliquis for anticoagulation, oral metoprolol 50 mg 3 times daily, and Lasix at 40 mg every 12 hours. He is in negative fluid balance, lung sounds reveal crackles at the bilateral lower bases, equal air entry noted bilaterally, no rhonchi or wheezing. Objective - Vital Signs Vital signs: Vital Signs Temp 97.6 F 12/16/18 12:00 Pulse 89 12/16/18 12:00 Resp 17 12/16/18 12:46 BP 120/83 12/16/18 12:00 Pulse Ox 96 12/16/18 12:00 Intake & Output 12/15/18 12/16/18 12/16/18 18:59 06:59 18:59 Intake Total 1060.167 360 Output Total 450 1150 Balance 610.167 -1150 360 Weight 92.8 kg Intake: IV 20 Sodium Chloride 0.9% 1, 20 000 ml @ 100 mls/hr IV . Q10H [facility] Rx#:[id number] Intake, IV Titration 98.167 Amount Heparin Sod,Pork in 0.45% 98.167 NaCl 25,000 unit In 0.45 % NaCl 1 250ml.bag @ 10. 968 UNITS/KG/HR 10 mls/hr IV .Q24H [facility] Rx#: [id number] Oral 942 360 Output: Urine 450 1150 Other: Voiding Method Toilet Toilet # Voids 3 2 - Exam GENERAL EXAM: Alert, very pleasant, 78-year-old white male, on room air, with a pulse ox of 96% comfortable in no apparent distress. HEAD: Normocephalic/atraumatic. EYES: Normal reaction of pupils, equal size. Conjunctiva pink, sclera white. NOSE: Clear with pink turbinates. THROAT: No erythema or exudates. NECK: No masses, no JVD, no thyroid enlargement, no adenopathy. CHEST: No chest wall deformity. Symmetrical expansion. LUNGS: Equal air entry with limited crackles at the bases, no wheeze, rhonchi or dullness. CVS: Regular rate and rhythm, normal S1 and S2, no gallops, no murmurs, no rubs ABDOMEN: Soft, nontender. No hepatosplenomegaly, normal bowel sounds, no guarding or rigidity. EXTREMITIES: No clubbing, 1+ bilateral lower extremity edema, no cyanosis, 2+ pulses and upper and lower extremities. MUSCULOSKELETAL: Muscle strength and tone normal. SPINE: No scoliosis or deformity SKIN: No rashes CENTRAL NERVOUS SYSTEM: Alert and oriented -3. No focal deficits, tone is normal in all 4 extremities. PSYCHIATRIC: Alert and oriented -3. Appropriate affect. Intact judgment and insight. - Labs CBC & Chem 7: 12/16/18 06:25 12/16/18 06:25 Labs: Abnormal Lab Results - Last 24 Hours (Table) 12/16/18 Range/Units 06:25 BUN 22 H (9-20) mg/dL Assessment and Plan Plan: Assessment: #1. Acute exacerbation of congestive heart failure with previously documented preserved EF. No evidence of pulmonary embolism on CTA chest #2. New onset A. fib with RVR #3. Paroxysmal nocturnal dyspnea and lower extremity swelling #4. Mild intermittent bronchial asthma, currently stable #5. Multiple bilateral small peripheral noncalcified pulmonary nodules, measuring up to 9 mm, follow-up on outpatient basis #6. Hypertension #7. Never smoker #8. Hyperlipidemia Plan: Continue with IV diuretics, patient has been started on oral anticoagulation, he remains in A. fib with a controlled rate, fluid volume status is improving, patient's breathing is improving, he did not wake up out of breath last night, he is on room air, denies any chest pain, anticipate discharge home in the morning. He'll need follow-up with Dr. Corado in the office I performed a history & physical examination of the patient and discussed their management with my nurse practitioner, Belia Camacho. I reviewed the nurse practitioner's note and agree with the documented findings and plan of care. Lung sounds are positive for diminished breath sounds. The findings and the impression was discussed with the patient. I attest to the documentation by the nurse practitioner. Time with Patient: Less than 30
[2018-12-16] MEDS: METOPROLOL TARTRATE 50 MG TAB PO SCH ×2 (16:28→20:45)
[2018-12-16 20:54] VITALS: RESP 18
--- NOTE | 2018-12-16 22:23 | PN ---
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 He has improved a lot. His breathing is easier. The edema persists in the lower extremities. His vital signs are stable. Blood pressure control is optimized. I am recommending that we continue his lisinopril for now. Increase metoprolol from 50 mg b.i.d. to t.i.d. Echocardiogram was reviewed, ejection fraction in the 50% range with biatrial enlargement, moderate mitral regurgitation and also moderate pulmonary hypertension. Echo findings and his current condition were described in detail to the patient as well as his . I am recommending that we will optimize BP control. 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 We will optimize BP control, treat his heart failure. Once he is stable, we will consider electrical cardioversion if he does not convert to sinus rhythm. He is well anticoagulated. I will obtain a venous Doppler because of lower extremity edema, although this is less likely to be due to DVT and we will decrease Lasix to 40 mg every 12 hours. Increase metoprolol to 50 mg t.i.d. Blood pressure is 130/80 pulse rate is about 90-100. JVD 1 cm. No carotid bruit. S1- S2 heard normally. Lungs reveal decent air entry with significant improvement compared to yesterday. Abdomen is soft. Lower extremity edema persists. Plan is to increase beta stan, venous Doppler, decrease Lasix to q.12 hours and increase the Lipitor to 20 mg daily. MMODL / IJN: [id number] /
[2018-12-16] MEDS: AMIODARONE 200 MG TAB PO SCH (22:28)
[2018-12-17] MEDS: FUROSEMIDE 10 MG/ML 4 ML VIAL IV SCH ×2 (03:07→09:03)
[2018-12-17 06:07] LABS: Mean Platelet Volume 7.2; Platelet Count 181 k/uL (150-450)
[2018-12-17 06:37] LABS: Calcium 9.7 mg/dL (8.4-10.2); Potassium 4.4 mmol/L (3.5-5.1)
[2018-12-17 06:43] LABS: T4, Free (Free Thyroxine) 1.43 ng/dL (0.78-2.19)
--- NOTE | 2018-12-17 08:25 | P.DS ---
Providers Date of admission: 12/14/18 19:57 Attending physician: Rudi Garcia Consults: 12/14/18 19:53 Consult Physician Urgent Consulting Provider: Sumeet Ayala Consult Reason/Comments: afib Do you want consulting provider notified?: Yes 12/14/18 19:56 Consult Physician Routine Consulting Provider: Domenic Corado Consult Reason/Comments: known Do you want consulting provider notified?: Yes Primary care physician: Domenic [place] [facility] Course: 78-year-old pleasant gentleman was admitted from new-onset atrial fibrillation with rapid ventricular rate patient was started on Eliquis patient is on metoprolol patient is rate controlled at this time. Patient did is also being treated for congestive heart failure echocardiac exam is not available shortness with improved crackles improved still has pedal edema patient has differentially when both legs because of which are often Doppler of bilateral lower extremities. Patient also has pulmonary nodules in the lung which will be evaluated as an outpatient. Patient is feeling better still remains on 40 mg twice a day of Lasix 12/17/2018 Patient still has bilateral pedal edema for which we'll use compression socks although his heart failure improved significantly echocardiogram showed ejection fraction of 45-50%, patient is rate controlled did show moderate to severe mitral regurgitation with a moderate to severe pulmonary hypertension with dilated left atrium possible culprit is mitral regurgitation causing all the above-mentioned anatomic changes in the heart. PHYSICAL EXAMINATION: GENERAL: The patient is alert and oriented x3, not in any acute distress. Well developed, well nourished. HEENT: Pupils are round and equally reacting to light. EOMI. No scleral icterus. No conjunctival pallor. Normocephalic, atraumatic. No pharyngeal erythema. No thyromegaly. CARDIOVASCULAR: S1 and S2 present. No murmurs, rubs, or gallops. PULMONARY: Chest is clear to auscultation, no wheezing or crackles. ABDOMEN: Soft, nontender, nondistended, normoactive bowel sounds. No palpable organomegaly. MUSCULOSKELETAL: No joint swelling or deformity. EXTREMITIES: No cyanosis, clubbing, still has pedal edema but significantly improved. NEUROLOGICAL: Gross neurological examination did not reveal any focal deficits. SKIN: No rashes. Assessment and Plan Plan: -Shortness of breath: Probably secondary to congestive heart failure exacerbation chronic systolic dysfunction with acute exacerbation and the heart failure is probably secondary to atrial fibrillation presently rate controlled p atient is euvolemic -Severe mitral regurgitation -Moderate to severe pulmonary hypertension -Bilateral pedal edema differentiated edema Doppler of the bilateral lower extremities to ruled out DVT -Multiple noncalcified pulmonary nodules: Pulmonology will work up as an outpatient -Atrial fibrillation with rapid ventricular rate presently rate controlled being discharged on metoprolol and amiodarone, amiodarone need to be tapered down as outpatient -Asthma without any acute exacerbation -Hyperlipidemia -Hypertension Patient Condition at Discharge: Good Plan - Discharge Summary Discharge Rx Participant: No New Discharge Prescriptions: New Amiodarone [Cordarone] 200 mg PO BID #60 tab Apixaban [Eliquis] 5 mg PO BID #30 tab Atorvastatin [Lipitor] 20 mg PO HS tab Lisinopril 20 mg PO DAILY #30 tab Metoprolol Tartrate [Lopressor] 50 mg PO TID #90 tab Furosemide [Lasix] 40 mg PO BID #60 tablet Continue Albuterol Sulfate [Proair Hfa] 1 - 2 puff INHALATION Q6HR PRN PRN Reason: Shortness Of Breath Atorvastatin Calcium [Lipitor] 10 mg PO DAILY Discontinued Aspirin EC [Ecotrin Low Dose] 81 mg PO DAILY amLODIPine [Norvasc] 5 mg PO DAILY Lisinopril-Hctz 10-12.5 mg [Zestoretic 10-12.5] 1 tab PO DAILY Discharge Medication List Albuterol Sulfate [Proair Hfa] 1 - 2 puff INHALATION Q6HR PRN 12/14/18 [History] Atorvastatin Calcium [Lipitor] 10 mg PO DAILY 12/14/18 [History] Amiodarone [Cordarone] 200 mg PO BID #60 tab 12/17/18 [Rx] Apixaban [Eliquis] 5 mg PO BID #30 tab 12/17/18 [Rx] Atorvastatin [Lipitor] 20 mg PO HS tab 12/17/18 [Rx] Furosemide [Lasix] 40 mg PO BID #60 tablet 12/17/18 [Rx] Lisinopril 20 mg PO DAILY #30 tab 12/17/18 [Rx] Metoprolol Tartrate [Lopressor] 50 mg PO TID #90 tab 12/17/18 [Rx] Follow up Appointment(s)/Referral(s): Sunil Guajardo MD [STAFF PHYSICIAN] - 1 Week Domenic Corado DO [Primary Care Provider] - 3 Days Ambulatory/Diagnostic Orders: Basic Metabolic Panel [LAB.AMB] Time Frame: 3 Days, Location: None Selected Discharge Disposition: HOME SELF-CARE
[2018-12-17] MEDS: AMIODARONE 200 MG TAB PO SCH (09:03)
[2018-12-17] MEDS: METOPROLOL TARTRATE 50 MG TAB PO SCH (09:03)
[2018-12-17] MEDS: APIXABAN 5 MG TAB PO SCH (09:03)
[2018-12-17 09:24] VITALS: BP 123/69; PULSE 99; TEMP 98.3
--- NOTE | 2018-12-17 12:50 | P.PN ---
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 Denied any chest pain, denied any palpitations, no fever or chills, his cough is dry, denies any chest congestion, he has been using his Pro-Air inhaler 1 dose episodes, he also noti richie increasing swelling in his lower extremities. His symptoms of shortness of breath would resolve during the day. Patient attributed his symptoms to asthma exacerbation. Over the last couple weeks dyspnea progressed, patient is has been waking up in the middle of the night dyspneic. He went to see Dr. Monge in the pulmonary clinic yesterday on 12/14/2018, and was found to be in new onset of A. fib with rapid ventricular response. He was sent to the emergency department for evaluation. EKG showed A. fib with a rate of 111, and evidence of septal infarct of undetermined age. Lab work showed normal white count of 6.7, hemoglobin of 13.5, electro lytes are within normal limits, B1 is 24 creatinine 0.97, LFTs were within normal limits, proBNP was 1580, troponins were negative at 0.019, 0.018, and 0.014, TSH was normal at 1.850. 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 On 12/16/2018 patient is seen in follow-up on selective care unit, he is awake and alert, in no acute distress, he states his breathing is improving, he continues to diurese, lower extremity edema is improving, he remains in A. fib with a controlled rate. Patient states last night was the first night in over a month and a half where he did not wake up short of breath. Lower extremity Dopplers were negative for evidence of DVT, patient is on Eliquis for an ticoagulation, oral metoprolol 50 mg 3 times daily, and Lasix at 40 mg every 12 hours. He is in negative fluid balance, lung sounds reveal crackles at the bilateral lower bases, equal air entry noted bilaterally, no rhonchi or wheezing. The patient was seen today 12/17/2018 in follow-up on the selective care unit. He is currently sitting up in a chair at the bedside. Awake and alert in no acute distress. No worsening shortness of breath, cough or congestion. No chest pain or palpitations. Maintaining good O2 saturations in the mid 90s on room air. He's been afebrile. Hemodynamically stable. Rate well controlled. He's initiated on amiodarone and metoprolol. Anticoagulated with Eliquis. Objective - Vital Signs Vital signs: Vital Signs Temp 98.3 F 12/17/18 09:18 Pulse 99 12/17/18 09:18 Resp 18 12/17/18 09:18 BP 123/69 12/17/18 09:18 Pulse Ox 95 12/17/18 09:18 Intake & Output 12/16/18 12/17/18 12/17/18 18:59 06:59 18:59 Intake Total 1080 240 Output Total 450 Balance 1080 -450 240 Weight 87 kg Intake: Oral 1080 240 Output: Urine 450 Other: Voiding Method Toilet Toilet Toilet # Voids 3 2 - Exam GENERAL EXAM: Alert, very pleasant, 78-year-old male patient, on room air. HEAD: Normocephalic/atraumatic. EYES: Normal reaction of pupils, equal size. Conjunctiva pink, sclera white. NOSE: Clear with pink turbinates. THROAT: No erythema or exudates. NECK: No masses, no JVD, no thyroid enlargement, no adenopathy. CHEST: No chest wall deformity. Symmetrical expansion. LUNGS: Equal air entry with no crackles, no wheeze, rhonchi or dullness. CVS: Regular rate and rhythm, normal S1 and S2, no gallops, no murmurs, no rubs ABDOMEN: Soft, nontender. No hepatosplenomegaly, normal bowel sounds, no g uarding or rigidity. EXTREMITIES: No clubbing, 1+ bilateral lower extremity edema, no cyanosis, 2+ p ulses and upper and lower extremities. MUSCULOSKELETAL: Muscle strength and tone normal. SPINE: No scoliosis or deformity SKIN: No rashes CENTRAL NERVOUS SYSTEM: No focal deficits, tone is normal in all 4 extremities. PSYCHIATRIC: Alert and oriented -3. Appropriate affect. Intact judgment and insight. - Labs CBC & Chem 7: 12/17/18 05:35 12/17/18 05:35 Labs: Abnormal Lab Results - Last 24 Hours (Table) 12/17/18 Range/Units 05:35 Carbon Dioxide 35 H (22-30) mmol/L BUN 27 H (9-20) mg/dL Creatinine 1.37 H (0.66-1.25) mg/dL Assessment and Plan Assessment: Assessment: #1. Acute exacerbation of congestive heart failure with previously documented preserved EF. No evidence of pulmonary embolism on CTA chest #2. New onset A. fib with RVR #3. Paroxysmal nocturnal dyspnea and lower extremity swelling #4. Mild intermittent bronchial asthma, currently stable #5. Multiple bilateral small peripheral noncalcified pulmonary nodules, measuring up to 9 mm, follow-up on outpatient basis #6. Hypertension #7. Never smoker #8. Hyperlipidemia Plan: The patient was seen and evaluated by Dr. Covington. He is stable from the pulmonary standpoint. He could be discharged home once cleared by cardiology. Follow up with Dr. Corado in our office in 1-2 weeks' time. He and his are both encouraged to call sooner with any recurrence of symptoms or other questions or concerns. I, the cosigning physician, performed a history & physical examination of the patient. Lungs sounds are clear. Maintaining good O2 saturations in the 90s on room air. I discussed the assessment and plan of care with my nurse practitioner, Keyla Moore. I attest to the above note as dictated by her.
--- NOTE | 2018-12-17 13:15 | PN ---
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 He remains in atrial fib, but the rate is better. It is anywhere between 70 to 90. He is resting comfortably without symptoms. His breathing is easier. His edema of lower extremities has improved. Creatinine however has gone up with IV diuretics. I am recommending that he can be discharged today on Lasix 40 mg every morning, amiodarone 200 mg b.i.d., and metoprolol tartrate 50 mg t.i.d. His hypertension is under good control. He has enlarged atria, moderate mitral regurgitation and atrial fibrillation. We will anticoagulate him with Eliquis 5 mg b.i.d. for 3 to 4 weeks before any cardioversion and hopefully in the interim he may convert to sinus rhythm, although with enlarged atria, it seems unlikely. I explained this to the patient in detail. I am going to see him in about a week or 10 days in the office. He will have a BMP and CBC checked on Wednesday in view of the rising creatinine with diuretics. We will stop IV diuresis and give him 40 mg of Lasix p.o. Vitals are stable. JVD is not easily evident. S1, S2 heard normally, irregular rate and rhythm noted. Short systolic murmur noted. Lungs revealed decent air entry without rales. Abdomen and lower extremity exam is unchanged. The edema of lower extremities has improved. MMODL / IJN: [id number] /
[2018-12-17] MEDS ORDERED: ATORVASTATIN 20 MG TAB PO SCH (21:00)
--- NOTE | 2018-12-22 11:41 | CDI ---
Documentation Clarification Form Date: 12/22/2018 11:31:26 AM From: Jessica Day If you have a question about this query, please contact Mireya Morales, Eligibility Services Representative at [phone] between 8am and 5pm. Phone: Admit Date: 12/14/2018 7:57:00 PM Patient Name: Matt Hines Visit Number: [id number] Discharge Date: 12/17/2018 12:40:00 PM ATTENTION: The Clinical Documentation Specialists (CDI) and [facility] Coding Staff appreciate your assistance in clarifying documentation. Please respond to the clarification below the line at the bottom and electronically sign. The CDI & [facility] Coding staff will review the response and follow-up if needed. Please note: Queries are made part of the Legal Health Record. If you have any questions, please contact the author of this message via ITS. Dr. Collado, Conflicting documentation has been found in the medical record: Dischrg Sum and H & P document Acute/chronic systolic CHF. Pulmonary PN 12/17 documents diastolic CHF. Please clarify if patient's CHF was systolic, diastolic or both. History/Risk Factors:new onset atrial fib, bilateral edema, BNP 1580, pleural effusion Treatment: Lasix In your opinion, what is the most clinically appropriate diagnosis for this patient? Acute/chronic systolic CHF Acute/chronic diastolic CHF Acute/chronic systolic/diastolic CHF Other explanation of clinical findings Unable to determine (no explanation for clinical findings) Already dictated in my note and this query is not necessary MTDD
== END 2018-12-17 12:40 | disposition home or self-care (01) | DRG 308 ==
LOC: EC 15:26 → 3SCARD 19:57
PROVIDERS: ADMIT Hospitalist; ATTEND Hospitalist
DX: I48.91 Unspecified atrial fibrillation (principal); I50.23 Acute on chronic systolic (congestive) heart failure; I48.92 Unspecified atrial flutter; I49.3 Ventricular premature depolarization; I11.0 Hypertensive heart disease with heart failure; I71.2 Thoracic aortic aneurysm, without rupture; J45.20 Mild intermittent asthma, uncomplicated; E78.00 Pure hypercholesterolemia, unspecified; E78.5 Hyperlipidemia, unspecified; I27.20 Pulmonary hypertension, unspecified; I34.0 Nonrheumatic mitral (valve) insufficiency; Z79.01 Long term (current) use of anticoagulants; Z79.82 Long term (current) use of aspirin; Z79.899 Other long term (current) drug therapy; R91.8 Other nonspecific abnormal finding of lung field
CPT/HCPCS: 36415; 71275; 80048; 80053; 80061; 83735; 83880; 84075; 84100; 84439; 84443; 84450; 84460; 84481; 84484; 85025; 85027; 85049; 85379; 85610; 85730; 93005; 93306; 93970; 94760; 96365; 96366; 96368; 96376; 99214; 99285

== ENCOUNTER → 2018-12-19 | Outpatient (CLI) | payer MEDICARE, MEDICAID ==
[2018-12-19 12:42] LABS: HCT 47.6 % (39.0-53.0); HGB 14.6 gm/dL (13.0-17.5); MCH 30.5 pg (25.0-35.0); MCHC 30.6 g/dL (31.0-37.0); MCV 99.5 fL (80.0-100.0); Mean Platelet Volume 9.1; Platelet Count 207 k/uL (150-450); RBC 4.78 m/uL (4.30-5.90); WBC 7.5 k/uL (3.8-10.6)
[2018-12-19 19:03] LABS: African American GFR (CKD) 50.2 (60.0-200.0); Anion Gap 14.7 mmol/L (4.00-12.00); BUN/Creat Ratio 25.33 Ratio (12.00-20.00); Calcium 9.4 mg/dL (8.7-10.3); Carbon Dioxide 28.3 mmol/L (21.6-31.8); Potassium 3.8 mmol/L (3.5-5.5)
== END | disposition home or self-care (01) ==
LOC: LABWHC1 10:46
PROVIDERS: ATTEND Internal Medicine Interventional Cardiology
DX: I48.91 Unspecified atrial fibrillation (principal); I50.9 Heart failure, unspecified
CPT/HCPCS: 36415; 80048; 85027

== ENCOUNTER 2019-01-17 06:03 | Day surgery (SDC) | payer MEDICARE, MEDICAID ==
[2019-01-16 13:18] VITALS: BMI 24.5
[~2019-01-17 06:03] MED LIST: SODIUM CHLORIDE 0.9% 1,000 ML IV SCH
[2019-01-17] MEDS ORDERED: IV FLUID CONTINUATION 400 ML IV ONE ×3 (07:08→07:40)
[2019-01-17] MEDS ORDERED: LIDOCAINE 1% INJ 10MG/ML (20 ML MDV) ONE (07:15)
[2019-01-17] MEDS ORDERED: PROPOFOL 10 MG/ML 20 ML VIAL IV ONE (07:15)
[2019-01-17] MEDS ORDERED: ALBUTEROL NEBULIZED 2.5 MG/3 ML INHALATION PRN (07:43)
[2019-01-17 08:05] VITALS: TEMP 97.4
[2019-01-17 08:06] VITALS: RESP 16
[2019-01-17] MEDS ORDERED: METOPROLOL TARTRATE 50 MG TAB PO SCH (09:00)
[2019-01-17] MEDS ORDERED: FUROSEMIDE 40 MG TAB PO SCH (09:00)
[2019-01-17] MEDS ORDERED: LISINOPRIL 20 MG TAB PO SCH (09:00)
[2019-01-17] MEDS ORDERED: AMIODARONE 200 MG TAB PO SCH (09:00)
[2019-01-17] MEDS ORDERED: APIXABAN 5 MG TAB PO SCH (09:00)
--- NOTE | 2019-01-17 09:21 | CE ---
CARDIAC ELECTROPHYSIOLOGY REPORT DATE OF SERVICE: 01/17/2019 PROCEDURE: Electrical cardioversion. INDICATION: Persistent atrial fibrillation in spite of pharmacological efforts. 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 He also has an ascending aortic aneurysm. After trying pharmacological efforts and after having him on amiodarone 200 mg b.i.d. he was brought in for the electrical cardioversion electively. PROCEDURE NOTE: Under the influence of ultra short-acting intravenous anesthetic agent with the attendance of the anesthesiologist, a single 250 joule shock was delivered with anterior and posterior patches. Patient converted to sinus rhythm, remained hemodynamically stable and neurologically intact. This was a successful electrical cardioversion. The patient will be discharged later on today if he remains stable. MMODL / IJN: [id number] /
[2019-01-17 12:13] VITALS: BP 136/72; PULSE 60
[2019-01-17] MEDS ORDERED: ATORVASTATIN 20 MG TAB PO SCH (21:00)
[2019-01-17] MEDS ORDERED: MONTELUKAST 10 MG TAB PO SCH (21:00)
== END 2019-01-17 10:25 | disposition home or self-care (01) ==
LOC: CATHCVL 06:03
PROVIDERS: ATTEND Internal Medicine Interventional Cardiology
DX: I48.19 Other persistent atrial fibrillation (principal); I10 Essential (primary) hypertension; J45.998 Other asthma; I08.1 Rheumatic disorders of both mitral and tricuspid valves; I71.2 Thoracic aortic aneurysm, without rupture; E78.5 Hyperlipidemia, unspecified; I27.21 Secondary pulmonary arterial hypertension; E78.00 Pure hypercholesterolemia, unspecified; Z90.49 Acquired absence of other specified parts of digestive tract; Z79.01 Long term (current) use of anticoagulants; Z79.899 Other long term (current) drug therapy
CPT/HCPCS: 92960; J2001; J2704

== ENCOUNTER → 2019-08-10 | Outpatient (CLI) | payer MEDICARE, MEDICAID ==
[2019-08-10 12:27] LABS: Basophils # (A) 0.1 k/uL (0-0.2); Basophils % (A) 1 %; Eosinophils # (A) 0.1 k/uL (0-0.7); Eosinophils % (A) 3 %; HCT 42.8 % (39.0-53.0); HGB 13.3 gm/dL (13.0-17.5); Lymphocytes % (A) 22 %; MCH 30.4 pg (25.0-35.0); MCV 97.9 fL (80.0-100.0); Mean Platelet Volume 8.9; Monocytes # (A) 0.4 k/uL (0-1.0); Monocytes % (A) 8 %; Neutrophils # (A) 2.8 k/uL (1.3-7.7); Neutrophils % (A) 63 %; Platelet Count 172 k/uL (150-450); RBC 4.37 m/uL (4.30-5.90); WBC 4.5 k/uL (3.8-10.6)
[2019-08-10 20:16] LABS: African American GFR (CKD) 65.3 (60.0-200.0); Albumin 4.3 g/dL (3.80-4.90); Albumin/Globulin Ratio 1.79 (1.60-3.17); Anion Gap 9.5 mmol/L (4.00-12.00); BUN/Creat Ratio 26.67 Ratio (12.00-20.00); Calcium 9.1 mg/dL (8.7-10.3); Carbon Dioxide 27.5 mmol/L (21.6-31.8); Globulin 2.4 g/dL (1.6-3.3); Non-African American GFR(CKD) 56.4 (60.0-200.0); Potassium 4.6 mmol/L (3.5-5.5); Total Bilirubin 0.9 mg/dL (0.2-1.2); Total Protein 6.7 g/dL (6.2-8.2)
[2019-08-10 20:24] LABS: T4, Free (Free Thyroxine) 1.6 ng/dL (0.80-1.80)
[2019-08-10 21:43] LABS: Chol/HDL Ratio 2.79; LDL Cholesterol,Calculated 93.2 mg/dL (0.0-131.0); VLDL Calculation 19.8 mg/dL (5.00-40.00)
[2019-08-10 21:53] LABS: Hemoglobin A1C 5.6 % (4.0-6.0)
== END | disposition home or self-care (01) ==
LOC: LABWHC1 11:01
PROVIDERS: ATTEND Internal Medicine Critical Care Medicine
DX: Z12.5 Encounter for screening for malignant neoplasm of prostate (principal); I48.91 Unspecified atrial fibrillation; J30.9 Allergic rhinitis, unspecified; E78.5 Hyperlipidemia, unspecified; I10 Essential (primary) hypertension
CPT/HCPCS: 84439; 80061; 80053; 84443; 85025; 82306; 83036; 36415; G0103

== ENCOUNTER → 2019-08-30 | Outpatient (CLI) | payer MEDICARE, MEDICAID ==
--- NOTE | 2019-08-30 14:21 | CT ---
EXAMINATION TYPE: CT angio chest DATE OF EXAM: 08/30/2019 COMPARISON: CTA chest December 14, 2018 HISTORY: follow up thoracic aortic aneurysm CT DLP: 769 mGycm. Automated Exposure Control for Dose Reduction was Utilized. CONTRAST: CTA scan of the thorax is performed without and with IV Contrast, patient injected with 80 mL of Isov ue 370, pulmonary embolism protocol. 3-D reconstructed images are created on independent workstation and reviewed. Aneurysm protocol. FINDINGS: LUNGS: Interval resolution of bilateral pleural effusions. There is patchy mild to moderate bibasilar linear scarring and/or atelectasis redemonstrated. Some scattered small basilar nodules again seen. Largest measurable nodules are 7 mm in the right lower lobe posteriorly axial image 50 and laterally axial image 49 stable or slightly smaller from prior CT. No enlarging nodules are evident. No pneumot horax seen bilaterally. MEDIASTINUM: There is satisfactory enhancement of the pulmonary artery and its branches, there is no CT evidence for pulmonary embolism. There are no greater than 1 cm hilar or mediastinal lymph nodes. No new Pericardial effusion is seen. Moderate to severe coronary artery calcification redemonstrated which is noted marker for underlying coronary artery disease. Persistent cardiomegaly with moderate to severe left atrial and mild/moderate biventricular dilatation. Redemonstration of prominent right and left pulmonary arteries. Adjacent ascending aorta measures up to 4.4 cm in diameter image 31 sign ificant change from prior. No aneurysm extension into the descending aorta noted. Mild to moderate ca lcified plaque of the descending aorta is present. OTHER: Subcentimeter low dense lesion left hepatic lobe axial series 8 image 63 2 small to further ch aracterize presumed benign. Fairly severe multilevel spurring in the thoracic spine redemonstrated. IMPRESSION: Stable ascending aortic aneurysm which I measure up to 4.4 cm in diameter, only visualize measurements up to 4.7 cm on prior saved images.
== END | disposition home or self-care (01) ==
LOC: RADCTMAIN 12:22
PROVIDERS: ATTEND Thoracic Surgery (Cardiothoracic Vascular Surgery)
DX: I71.2 Thoracic aortic aneurysm, without rupture (principal); I71.4 Abdominal aortic aneurysm, without rupture
CPT/HCPCS: 82565; 84520; 71275; 36415; Q9967

== ENCOUNTER 2019-11-23 08:49 | Day surgery (SDC) | payer MEDICARE, MEDICAID ==
[2019-11-17 13:37] VITALS: BMI 24.5
[~2019-11-23 08:49] MED LIST changes: +DEXAMETHASONE SOD PHOSPHATE 4 MG/ML 1 ML VIAL IV ONE; +FAMOTIDINE 20 MG/2 ML VIAL IV ONE; +LACTATED RINGERS 1,000 ML IV SCH; +ONDANSETRON 4 MG/2 ML VIAL IVP ONE; -SODIUM CHLORIDE 0.9% 1,000 ML IV SCH
[2019-11-23 09:41] VITALS: TEMP 97.8
[2019-11-23] MEDS ORDERED: MIDAZOLAM 2 MG/2 ML VIAL ONE (11:29)
[2019-11-23] MEDS ORDERED: KETAMINE 10 MG/ML 20 ML VIAL ONE (11:29)
[2019-11-23] MEDS ORDERED: PROPOFOL 10 MG/ML 20 ML VIAL IV ONE (11:29)
[2019-11-23] MEDS ORDERED: LIDOCAINE 1%-EPI 1:100,000 20 ML VIAL SQ ONE (12:01)
[2019-11-23 13:01] VITALS: RESP 16
--- NOTE | 2019-11-23 13:11 | P.OP ---
Date of Procedure: 11/23/19 Preoperative Diagnosis: lower lip ulceration actinic keratosis rule out squamous cell carcinoma Postoperative Diagnosis: same Procedure(s) Performed: lip shave with removal of ulcerative lower lip lesion with frozen section and reconstruction with mucosal flap. 4.2 x 2 cm the secondary flap measures 8.4 x 4 cm. Anesthesia: MAC Surgeon: Gray Monk Estimated Blood Loss (ml): 5 Pathology: other (frozen section shows margins are clean) Condition: stable Disposition: PACU Indications for Procedure: patient has a nonhealing ulcerative lesion of the lower lip with a lot of solar keratosis an actinic keratosis changes noted. Lip shave with mucosal flap is recommended. All risks, benefits, and alternative therapies were discussed. Consent was obtained and all questions were answered. Operative Findings: margins are negative for tumor. Description of Procedure: this patient's lower lip was injected with lidocaine and Marcaine with epinephrine. I'm marked the vermilion border with a marking pen and circular area around the ulcerative lesion. We made a fusiform incision after bulldog clamps were applied and the mucosa the lower lip was removed measuring 4.2 x 2 cm. We sent this for frozen section and the margins came back negative for tumor. With use of a delicate pickups and scissors I then elevated the mucosal flap along the inner portion of the lower lip with a secondary defect measuring 8.4 x 2 cm. The inner mucosal flap was then elevated and then rotated up to fill this large defect of the lower lip attaching this to the vermilion border. I utilized 4 rapid Vicryl for closure. To summarize a lip shave was performed with removal of a 4.2 x 2 cm area of mucosa the lower lip along the vermilion border and posterior. A inner lip mucosa flap was advanced to close this defect with a secondary defect measuring 8.4 x 4 cm. Bacitracin ointment was applied. The patient tolerated this well and a recheck is scheduled.
[2019-11-23 13:30] VITALS: BP 152/87; PULSE 52
[2019-11-23] MEDS ORDERED: HYDROcodone/APAP 5-325MG 1 EACH TAB ONE (13:43)
== END 2019-11-23 14:10 | disposition home or self-care (01) ==
LOC: OR 08:49
PROVIDERS: ATTEND Otolaryngology
DX: L57.0 Actinic keratosis (principal); J45.909 Unspecified asthma, uncomplicated; I10 Essential (primary) hypertension; I71.4 Abdominal aortic aneurysm, without rupture; I48.91 Unspecified atrial fibrillation; H40.9 Unspecified glaucoma; E78.00 Pure hypercholesterolemia, unspecified; E78.5 Hyperlipidemia, unspecified; Z85.828 Personal history of other malignant neoplasm of skin; Z90.89 Acquired absence of other organs; Z90.49 Acquired absence of other specified parts of digestive tract; Z98.41 Cataract extraction status, right eye; Z98.42 Cataract extraction status, left eye; Z98.890 Other specified postprocedural states; Z87.19 Personal history of other diseases of the digestive system; Z79.51 Long term (current) use of inhaled steroids; Z79.1 Long term (current) use of non-steroidal anti-inflammatories (NSAID); Z79.899 Other long term (current) drug therapy; Z79.82 Long term (current) use of aspirin; Z79.01 Long term (current) use of anticoagulants; Z79.52 Long term (current) use of systemic steroids; Z79.891 Long term (current) use of opiate analgesic; Z79.02 Long term (current) use of antithrombotics/antiplatelets; Z91.09 Other allergy status, other than to drugs and biological substances; Z91.018 Allergy to other foods; Z82.49 Family history of ischemic heart disease and other diseases of the circulatory system; Z80.0 Family history of malignant neoplasm of digestive organs; Z83.42 Family history of familial hypercholesterolemia; Z82.1 Family history of blindness and visual loss
CPT/HCPCS: 88305; 88331; 11313; 14301; J2250; J1100; J2405; J0690; J2704

== ENCOUNTER → 2020-01-03 | Outpatient (CLI) | payer MEDICARE, MEDICAID ==
[2020-01-03 16:46] LABS: Potassium 4.6 mmol/L (3.5-5.1)
[2020-01-03 16:48] LABS: HCT 42.6 % (39.0-53.0); HGB 13.7 gm/dL (13.0-17.5); MCH 32.4 pg (25.0-35.0); MCHC 32.1 g/dL (31.0-37.0); MCV 100.9 fL (80.0-100.0); Mean Platelet Volume 8.1; Platelet Count 188 k/uL (150-450); RBC 4.22 m/uL (4.30-5.90); RDW 13.4 % (11.5-15.5); WBC 4.9 k/uL (3.8-10.6)
== END | disposition home or self-care (01) ==
LOC: LABPAT 14:44
PROVIDERS: ATTEND Internal Medicine Interventional Cardiology
DX: Z01.818 Encounter for other preprocedural examination (principal); R94.39 Abnormal result of other cardiovascular function study
CPT/HCPCS: 36415; 80051; 82565; 84520; 85027

== ENCOUNTER 2020-01-17 07:20 | Day surgery (SDC) | payer MEDICARE, MEDICAID ==
[2020-01-16 10:54] VITALS: BMI 24.5
[~2020-01-17 07:20] MED LIST changes: +ALPRAZolam 0.25 MG TAB PO PRN; +ALPRAZolam 0.5 MG TAB PO PRN; +ASPIRIN 325 MG TAB PO STA; +ATORVASTATIN 80 MG TAB PO STA; -DEXAMETHASONE SOD PHOSPHATE 4 MG/ML 1 ML VIAL IV ONE; -FAMOTIDINE 20 MG/2 ML VIAL IV ONE; -LACTATED RINGERS 1,000 ML IV SCH; +NITROGLYCERIN SL TABS 0.4 MG TAB SUBLINGUAL PRN; -ONDANSETRON 4 MG/2 ML VIAL IVP ONE; +SODIUM CHLORIDE 0.9% 1,000 ML IV SCH; +SODIUM CHLORIDE 0.9% 1,000 ML in EMPTY BAG 1 BAG IV ONE
[2020-01-17] MEDS ORDERED: SODIUM CHLORIDE 0.9% 1,000 ML IV ONE (07:31)
[2020-01-17 07:54] VITALS: RESP 16; TEMP 97.9
[2020-01-17 09:19] LABS: Calcium 8.7 mg/dL (8.4-10.2); Potassium 4.1 mmol/L (3.5-5.1)
[2020-01-17] MEDS ORDERED: VERAPAMIL 2.5 MG/ML 2 ML AMP ONE (10:58)
[2020-01-17] MEDS ORDERED: LIDOCAINE 1% INJ 10MG/ML (20 ML MDV) ONE (10:58)
[2020-01-17] MEDS ORDERED: HEPARIN SODIUM 1,000 UN/ML (10ML VL) ONE (10:58)
[2020-01-17] MEDS ORDERED: MIDAZOLAM 2 MG/2 ML VIAL IV ONE (11:11)
[2020-01-17] MEDS ORDERED: LIDOCAINE 1% INJ 10MG/ML (20 ML MDV) SQ ONE (11:11)
[2020-01-17] MEDS ORDERED: VERAPAMIL SYRINGE (5 MG/10 ML) INTRAARTER ONE (11:13)
[2020-01-17] MEDS ORDERED: IOPAMIDOL-370 100ML BTL INJ ONE (11:27)
[2020-01-17] MEDS ORDERED: SODIUM CHLORIDE 0.9% 1,000 ML IV SCH (11:42)
--- NOTE | 2020-01-17 12:53 | CC ---
CARDIAC CATHETERIZATION REPORT DATE OF SERVICE: 01/17/2020. PROCEDURE: Left heart catheterization and coronary angiography. PERFORMED BY: Dr. Misha Guajardo. Moderate conscious sedation time was 23 minutes. Patient was administered Versed. Oxygen saturation, hemodynamics and EKG were monitored closely. 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. He has multiple comorbid conditions in the form of paroxysmal atrial fibrillation, hypertension, hyperlipidemia, ascending aortic dilatation followed by thoracic surgery. He also had an abnormal stress test with apical lateral ischemia and therefore was advised cardiac catheterization after due discussion regarding risks, benefits, and options. PROCEDURE NOTE: Under local anesthesia and strict aseptic precautions, a 6-Moroccan introducer was placed in the right radial artery. Using a JL4 and a JR4 catheters I performed coronary angiography. I used a JL3.5, but the aortic root was somewhat dilated. LV pressures were obtained with a pigtail catheter but LV gram was not performed. The sheath was taken out and TR band applied as per protocol with saturation of the fingers of the right hand of about 96%. The patient tolerated procedure well without complication. The results were discussed with the patient and . He is advised medical therapy. CARDIAC CATHETERIZATION FINDINGS: Left ventricular end-diastolic pressure was 9 mmHg without any gradient across the aortic valve. CORONARY ANGIOGRAPHY FINDINGS: RIGHT CORONARY ARTERY: Calcified vessel, dominant, mild irregularities. No significant disease, bifurcates into PDA and PLV, supplies a sizable amount of myocardium. There is moderate calcification throughout the vessel. LEFT MAIN CORONARY ARTERY: This is a long vessel, free of significant disease. Moderate calcification bifurcates into LAD and circumflex. LEFT ANTERIOR DESCENDING CORONARY ARTERY: This vessel is large in caliber and distribution. There is significant calcification at the distal left main and proximal LAD and calcification extends into the 2 diagonal branches that come off very proximally. There is another septal branch in the mid diagonal branch. The entire LAD has multiple irregularities and there is moderate calcification throughout the vessel and the stent in the distal 1/3 and a at least until the proximal half of the vessel is moderately calcified. There is about a 30% to 40% narrowing in the LAD in the midportion at the origin of the septal branch. This is not a significant lesion. Overall, the flow is brisk and the vessel extends all the way to the apex and supplies the inferoapical portion of left ventricle. LAD therefore is a heavily calcified vessel with a 40% narrowing. LEFT POSTERIOR CIRCUMFLEX CORONARY ARTERY: Technically nondominant vessel, gives off a high first obtuse marginal and a relatively small caliber, small distribution. No significant disease. Minor irregularities noted. Left ventriculogram was not performed. FINAL IMPRESSION: This patient has a dominant right coronary artery, moderate calcification of the RCA, left main and LAD. There is a 40% mid LAD lesion. No significant disease in the RCA or circumflex. The diagonal branches are large and have mild irregularities. No significant disease in the diagonal branches. Mid LAD has 40% narrowing. Normal filling pressures and no gradient across the aortic valve. RECOMMENDATIONS: Findings were discussed with the patient and . Continued medical therapy with risk factor modification advised and expect he will be discharged later on today and I will see him in one week in the office. MAGUE / MARCELINA: [id number] /
[2020-01-17 19:23] VITALS: BP 125/61; PULSE 49
== END 2020-01-17 18:35 | disposition home or self-care (01) ==
LOC: CATHCVL 07:20
PROVIDERS: ATTEND Internal Medicine Interventional Cardiology
DX: I25.110 Atherosclerotic heart disease of native coronary artery with unstable angina pectoris (principal); I48.0 Paroxysmal atrial fibrillation; I10 Essential (primary) hypertension; I71.2 Thoracic aortic aneurysm, without rupture; E78.00 Pure hypercholesterolemia, unspecified; E78.5 Hyperlipidemia, unspecified; Z79.01 Long term (current) use of anticoagulants; Z79.899 Other long term (current) drug therapy
CPT/HCPCS: 93458; 80048; C1769; C1894; J2250; J2001; J1644; Q9967

== ENCOUNTER → 2020-08-29 | Outpatient (CLI) | payer MEDICARE, MEDICAID ==
[2020-08-29 15:18] LABS: Basophils # (A) 0.04 X 10*3/uL (0.00-0.10); Basophils % (A) 0.8 %; Eosinophils # (A) 0.29 X 10*3/uL (0.04-0.35); HCT 41.3 % (39.6-50.0); HGB 13.4 g/dL (13.0-17.0); Lymphocytes # (A) 0.84 X 10*3/uL (0.90-5.00); Lymphocytes % (A) 17.5 %; MCH 31.7 pg (27.0-32.0); MCHC 32.4 g/dL (32.0-37.0); MCV 97.6 fL (80.0-97.0); Mean Platelet Volume 12.1 fL (9.5-12.2); Monocytes % (A) 12.5 %; Neutrophils # (A) 3.01 X 10*3/uL (1.80-7.70); Neutrophils % (A) 62.8 %; Platelet Count 192 X 10*3/uL (140-440); RBC 4.23 X 10*6/uL (4.40-5.60); RDW 12.8 % (11.5-14.5)
[2020-08-29 18:16] LABS: African American GFR (CKD) 72.1 (60.0-200.0); Albumin 4.4 g/dL (3.80-4.90); Albumin/Globulin Ratio 1.83 (1.60-3.17); Anion Gap 9.3 mmol/L (4.00-12.00); BUN/Creat Ratio 17.27 Ratio (12.00-20.00); Bilirubin, Conjugated 0.3 mg/dL (0.20-0.40); Bilirubin,Unconjugated 0.6 mg/dL; Calcium 9.2 mg/dL (8.7-10.3); Carbon Dioxide 27.7 mmol/L (21.6-31.8); Chol/HDL Ratio 2.36; Globulin 2.4 g/dL (1.6-3.3); LDL Cholesterol,Calculated 79.6 mg/dL (0.0-131.0); Non-African American GFR(CKD) 62.2 (60.0-200.0); Potassium 4.6 mmol/L (3.5-5.5); Total Bilirubin 0.9 mg/dL (0.3-1.2); Total Protein 6.8 g/dL (6.2-8.2); VLDL Calculation 10.4 mg/dL (5.00-40.00)
[2020-08-29 18:23] LABS: T4, Free (Free Thyroxine) 1.3 ng/dL (0.80-1.80)
[2020-08-29 18:25] LABS: PSA Annual Screen 1.9 ng/mL (0.0-4.0)
== END | disposition home or self-care (01) ==
LOC: LABWHC1 09:09
PROVIDERS: ATTEND Internal Medicine Critical Care Medicine
DX: Z00.00 Encounter for general adult medical examination without abnormal findings (principal); Z12.5 Encounter for screening for malignant neoplasm of prostate; Z12.9 Encounter for screening for malignant neoplasm, site unspecified; J45.909 Unspecified asthma, uncomplicated; I48.91 Unspecified atrial fibrillation; E78.5 Hyperlipidemia, unspecified; I10 Essential (primary) hypertension
CPT/HCPCS: 84439; 80061; 80053; 82248; 84443; 85025; 82306; 83036; 36415; G0103

== ENCOUNTER → 2020-12-25 | Outpatient (CLI) | payer MEDICARE, MEDICAID ==
[2020-12-25 21:08] LABS: African American GFR (CKD) 58.9 (60.0-200.0); Albumin 4.4 g/dL (3.8-4.9); Albumin/Globulin Ratio 1.96 (1.60-3.17); Anion Gap 13.9 mmol/L (4.00-12.00); BUN/Creat Ratio 21.62 Ratio (12.00-20.00); Blood Urea Nitrogen 28.1 mg/dL (9.0-27.0); Calcium 9.2 mg/dL (8.7-10.3); Carbon Dioxide 24.1 mmol/L (21.6-31.8); Globulin 2.3 g/dL (1.6-3.3); Non-African American GFR(CKD) 50.8 (60.0-200.0); Potassium 4.3 mmol/L (3.5-5.5); T4, Free (Free Thyroxine) 1.52 ng/dL (0.800-1.800); Total Bilirubin 0.5 mg/dL (0.30-1.20); Total Protein 6.7 g/dL (6.2-8.2)
== END | disposition home or self-care (01) ==
LOC: LABWHC1 08:31
PROVIDERS: ATTEND Internal Medicine Interventional Cardiology
DX: I48.91 Unspecified atrial fibrillation (principal); I10 Essential (primary) hypertension
CPT/HCPCS: 36415; 80053; 84439; 84443

== ENCOUNTER 2021-01-09 06:16 | Day surgery (SDC) | payer MEDICARE, MEDICAID ==
[2021-01-07 16:17] VITALS: BMI 25.7
[~2021-01-09 06:16] MED LIST changes: -ALPRAZolam 0.25 MG TAB PO PRN; -ALPRAZolam 0.5 MG TAB PO PRN; -ASPIRIN 325 MG TAB PO STA; -ATORVASTATIN 80 MG TAB PO STA; -NITROGLYCERIN SL TABS 0.4 MG TAB SUBLINGUAL PRN; -SODIUM CHLORIDE 0.9% 1,000 ML in EMPTY BAG 1 BAG IV ONE
[2021-01-09] MEDS ORDERED: SODIUM CHLORIDE 0.9% 500 ML 500 ML IV ONE (06:48)
[2021-01-09 07:04] VITALS: RESP 16; TEMP 98.2
[2021-01-09] MEDS ORDERED: LIDOCAINE 1% INJ 10MG/ML (20 ML MDV) ONE (07:36)
[2021-01-09] MEDS ORDERED: PHENYLEPHRINE-0.9% NACL SYG 1,000 MCG/10 ML SYRINGE ONE (07:36)
[2021-01-09] MEDS ORDERED: PROPOFOL 10 MG/ML 20 ML VIAL IV ONE (07:36)
[2021-01-09] MEDS ORDERED: ePHEDrine 50 MG/ML 1 ML AMP ONE (07:36)
[2021-01-09 09:04] VITALS: BP 116/74; PULSE 55
--- NOTE | 2021-01-09 12:02 | PCN ---
PROCEDURE NOTE ELECTRICAL CARDIOVERSION: CLINICAL INFORMATION: Donny is an 80-year-old gentleman with persistent atrial fibrillation, unresponsive to pharmacological efforts. He also has mild aortic stenosis, noncritical CAD and ascending aortic aneurysm. He was brought in for the procedure electively after adequate anticoagulation. PROCEDURE NOTE: Under the influence of tvdlz-jxony-ibguil intravenous anesthetic agent with the attendance of the anesthesiologist, a single 100-joule shock was delivered in a synchronized fashion to the R-wave. There were two patches, one anterior and posterior. Patient converted to sinus rhythm. He became hypotensive, requiring ephedrine and phenylephrine. However, the blood pressure came back to 96. He was fully awake, neurologically intact. This was a successful electrical cardioversion. I expect he will be discharged later on today once he is up and about and has had a meal. I will see him in the office next week. MMODL / IJN: [id number] /
== END 2021-01-09 09:18 | disposition home or self-care (01) ==
LOC: CATHCVL 06:16
PROVIDERS: ATTEND Internal Medicine Interventional Cardiology
DX: I48.19 Other persistent atrial fibrillation (principal); I35.0 Nonrheumatic aortic (valve) stenosis; I95.9 Hypotension, unspecified; I25.10 Atherosclerotic heart disease of native coronary artery without angina pectoris; Z20.822 Contact with and (suspected) exposure to COVID-19; I71.2 Thoracic aortic aneurysm, without rupture; E78.5 Hyperlipidemia, unspecified; I10 Essential (primary) hypertension; E78.00 Pure hypercholesterolemia, unspecified; Z79.01 Long term (current) use of anticoagulants; Z79.899 Other long term (current) drug therapy
CPT/HCPCS: 92960; 87635; J2001; J2370; J2704

== ENCOUNTER 2021-01-11 13:07 | Inpatient (IN) | payer MEDICARE, MEDICAID ==
[2021-01-11] MEDS ORDERED: IPRATROPIUM-ALBUTEROL 3 ML NEB INHALATION STA (13:27)
--- NOTE | 2021-01-11 13:31 | ED ---
General Adult HPI - General Chief complaint: Shortness of Breath Stated complaint: SOB Time Seen by Provider: 01/11/21 13:14 Source: patient, family, RN notes reviewed Mode of arrival: wheelchair Limitations: no limitations - History of Present Illness Initial comments: Patient is a pleasant 80-year-old male presenting to the emergency department with stress of breath. Patient had minimal symptoms a couple days, worse last night. Symptoms are worse today, especially with exertion. There may be some mild leg swelling. No calf pain. Patient does have history of similar symptoms previously associated with asthma and CHF. Patient also has history of H a fibrillation and is on Eliquis. Patient has minimal cough. No fever. - Related Data Home Medications Medication Instructions Recorded Confirmed Montelukast Sodium [Singulair] 10 mg PO HS 01/16/19 01/09/21 lisinopriL 20 mg PO BID 01/16/19 01/09/21 Furosemide [Lasix] 20 mg PO DAILY 11/17/19 01/09/21 Metoprolol Tartrate 25 mg PO QAM 11/17/19 01/09/21 Tamsulosin [Flomax] 0.4 mg PO DAILY 11/17/19 01/09/21 hydrALAZINE HCL 25 mg PO BID 11/17/19 01/09/21 hydroCHLOROthiazide 25 mg PO DAILY 11/17/19 01/09/21 Amiodarone [Cordarone] 200 mg PO DAILY 01/16/20 01/09/21 Metoprolol Tartrate [Lopressor] 25 mg PO HS 01/07/21 01/09/21 Naproxen Sod/Diphenhydramine 1 each PO HS PRN 01/07/21 01/09/21 [Aleve Pm Caplet] Previous Rx's Medication Instructions Recorded Apixaban [Eliquis] 5 mg PO BID #30 tab 12/17/18 Atorvastatin [Lipitor] 20 mg PO HS tab 12/17/18 Allergies Allergy/AdvReac Type Severity Reaction Status Date / Time avocado Allergy Itching in Verified 01/11/21 13:09 throat Review of Systems ROS Statement: Those systems with pertinent positive or pertinent negative responses have been documented in the HPI. ROS Other: All systems not noted in ROS Statement are negative. Constitutional: Denies: fever Eyes: Denies: eye pain ENT: Denies: ear pain Respiratory: Reports: as per HPI, dyspnea Cardiovascular: Denies: chest pain, palpitations Endocrine: Denies: fatigue Gastrointestinal: Denies: abdominal pain Genitourinary: Denies: dysuria Musculoskeletal: Denies: back pain Skin: Denies: rash Neurological: Denies: weakness Past Medical History Past Medical History: Atrial Fibrillation, Atrial Flutter, Asthma, Coronary Artery Disease (CAD), Cancer, Heart Failure, Hearing Disorder / Deafness, Hyperlipidemia, Hypertension, Prostate Disorder Additional Past Medical History / Comment(s): Hx basal cell, squamous cell lesions. Thoracic aortic aneurysm. Hearing aids. BPH. History of Any Multi-Drug Resistant Organisms: None Reported Past Surgical History: Appendectomy, Heart Catheterization, Hernia Repair Additional Past Surgical History / Comment(s): Bilat Cataracts, Cardioversion x2 - last 08/2020, LIP LESION REMOVED Past Anesthesia/Blood Transfusion Reactions: No Reported Reaction Additional Past Anesthesia/Blood Transfusion Reaction / Comment(s): no blood transfusions Past Psychological History: No Psychological Hx Reported Smoking Status: Never smoker Past Alcohol Use History: Daily Past Drug Use History: None Reported - Past Family History Mother Family Medical History: No Reported History General Exam Limitations: no limitations General appearance: alert, in no apparent distress Head exam: Present: normocephalic Eye exam: Present: normal appearance Neck exam: Present: normal inspection Respiratory exam: Present: decreased breath sounds Cardiovascular Exam: Present: regular rate, normal rhythm GI/Abdominal exam: Present: soft. Absent: tenderness Extremities exam: Present: pedal edema (+1 bilateral). Absent: calf tenderness Back exam: Present: normal inspection Neurological exam: Present: alert Psychiatric exam: Present: normal affect, normal mood Skin exam: Present: normal color Course Vital Signs 01/11/21 01/11/21 01/11/21 13:09 15:11 15:22 Temperature 98.6 F Pulse Rate 76 68 70 Respiratory 20 18 18 Rate Blood Pressure 155/85 O2 Sat by Pulse 91 L Oximetry EKG Findings - EKG Comments: EKG Findings:: Sinus rhythm with a rate of 75. First-degree AV block IL of 212. QRS 106. QT 428. QTC 477. Normal axis. Septal Q waves. No acute ST ch jaleel. Medical Decision Making - Medical Decision Making Patient reevaluated and updated. Case was discussed earlier with Dr. Covington who did evaluate the patient in the emergency department. Case was discussed with Dr. goran herrera, who will admit for hospital call. - Lab Data Result diagrams: 01/11/21 14:07 01/11/21 14:07 Lab Results 01/11/21 01/11/21 01/11/21 Range/Units 14:07 14:07 14:07 WBC 9.0 (3.8-10.6) k/uL RBC 4.33 (4.30-5.90) m/uL Hgb 13.6 (13.0-17.5) gm/dL Hct 42.2 (39.0-53.0) % MCV 97.4 (80.0-100.0) fL MCH 31.3 (25.0-35.0) pg MCHC 32.2 (31.0-37.0) g/dL RDW 12.8 (11.5-15.5) % Plt Count 147 L (150-450) k/uL MPV 9.4 Neutrophils % 82 % Lymphocytes % 7 % Monocytes % 8 % Eosinophils % 1 % Basophils % 0 % Neutrophils # 7.4 (1.3-7.7) k/uL Lymphocytes # 0.6 L (1.0-4.8) k/uL Monocytes # 0.7 (0-1.0) k/uL Eosinophils # 0.1 (0-0.7) k/uL Basophils # 0.0 (0-0.2) k/uL PT 10.6 (9.0-12.0) sec INR 1.0 (<1.2) APTT 21.3 L (22.0-30.0) sec Sodium 138 (137-145) mmol/L Potassium 4.0 (3.5-5.1) mmol/L Chloride 105 (98-107) mmol/L Carbon Dioxide 23 (22-30) mmol/L Anion Gap 10 mmol/L BUN 28 H (9-20) mg/dL Creatinine 1.13 (0.66-1.25) mg/dL Est GFR (CKD-EPI)AfAm 70 (>60 ml/min/1.73 sqM) Est GFR (CKD-EPI)NonAf 61 (>60 ml/min/1.73 sqM) Glucose 110 H (74-99) mg/dL Plasma Lactic Acid Richar (0.7-2.0) mmol/L Calcium 9.5 (8.4-10.2) mg/dL Magnesium 1.9 (1.6-2.3) mg/dL Total Bilirubin 1.4 H (0.2-1.3) mg/dL AST 35 (17-59) U/L ALT 36 (4-49) U/L Alkaline Phosphatase 61 (38-126) U/L Troponin I (0.000-0.034) ng/mL NT-Pro-B Natriuret Pep pg/mL Total Protein 7.4 (6.3-8.2) g/dL Albumin 4.4 (3.5-5.0) g/dL Coronavirus (PCR) (Not Detectd) 01/11/21 01/11/21 01/11/21 Range/Units 14:07 14:07 14:07 WBC (3.8-10.6) k/uL RBC (4.30-5.90) m/uL Hgb (13.0-17.5) gm/dL Hct (39.0-53.0) % MCV (80.0-100.0) fL MCH (25.0-35.0) pg MCHC (31.0-37.0) g/dL RDW (11.5-15.5) % Plt Count (150-450) k/uL MPV Neutrophils % % Lymphocytes % % Monocytes % % Eosinophils % % Basophils % % Neutrophils # (1.3-7.7) k/uL Lymphocytes # (1.0-4.8) k/uL Monocytes # (0-1.0) k/uL Eosinophils # (0-0.7) k/uL Basophils # (0-0.2) k/uL PT (9.0-12.0) sec INR (<1.2) APTT (22.0-30.0) sec Sodium (137-145) mmol/L Potassium (3.5-5.1) mmol/L Chloride (98-107) mmol/L Carbon Dioxide (22-30) mmol/L Anion Gap mmol/L BUN (9-20) mg/dL Creatinine (0.66-1.25) mg/dL Est GFR (CKD-EPI)AfAm (>60 ml/min/1.73 sqM) Est GFR (CKD-EPI)NonAf (>60 ml/min/1.73 sqM) Glucose (74-99) mg/dL Plasma Lactic Acid Richar 1.4 (0.7-2.0) mmol/L Calcium (8.4-10.2) mg/dL Magnesium (1.6-2.3) mg/dL Total Bilirubin (0.2-1.3) mg/dL AST (17-59) U/L ALT (4-49) U/L Alkaline Phosphatase (38-126) U/L Troponin I 0.038 H* (0.000-0.034) ng/mL NT-Pro-B Natriuret Pep 2200 pg/mL Total Protein (6.3-8.2) g/dL Albumin (3.5-5.0) g/dL Coronavirus (PCR) (Not Detectd) 01/11/21 Range/Units 14:07 WBC (3.8-10.6) k/uL RBC (4.30-5.90) m/uL Hgb (13.0-17.5) gm/dL Hct (39.0-53.0) % MCV (80.0-100.0) fL MCH (25.0-35.0) pg MCHC (31.0-37.0) g/dL RDW (11.5-15.5) % Plt Count (150-450) k/uL MPV Neutrophils % % Lymphocytes % % Monocytes % % Eosinophils % % Basophils % % Neutrophils # (1.3-7.7) k/uL Lymphocytes # (1.0-4.8) k/uL Monocytes # (0-1.0) k/uL Eosinophils # (0-0.7) k/uL Basophils # (0-0.2) k/uL PT (9.0-12.0) sec INR (<1.2) APTT (22.0-30.0) sec Sodium (137-145) mmol/L Potassium (3.5-5.1) mmol/L Chloride (98-107) mmol/L Carbon Dioxide (22-30) mmol/L Anion Gap mmol/L BUN (9-20) mg/dL Creatinine (0.66-1.25) mg/dL Est GFR (CKD-EPI)AfAm (>60 ml/min/1.73 sqM) Est GFR (CKD-EPI)NonAf (>60 ml/min/1.73 sqM) Glucose (74-99) mg/dL Plasma Lactic Acid Richar (0.7-2.0) mmol/L Calcium (8.4-10.2) mg/dL Magnesium (1.6-2.3) mg/dL Total Bilirubin (0.2-1.3) mg/dL AST (17-59) U/L ALT (4-49) U/L Alkaline Phosphatase (38-126) U/L Troponin I (0.000-0.034) ng/mL NT-Pro-B Natriuret Pep pg/mL Total Protein (6.3-8.2) g/dL Albumin (3.5-5.0) g/dL Coronavirus (PCR) Not Detected (Not Detectd) - Radiology Data Radiology results: image reviewed (Chest x-ray shows small left effusion and increased vascularity) Disposition Clinical Impression: Congestive heart failure Disposition: ADMITTED IP TO THIS HOSP Is patient prescribed a controlled substance at d/c from ED?: No Decision Time: 16:20
--- NOTE | 2021-01-11 14:31 | XR ---
EXAMINATION TYPE: XR chest 2V DATE OF EXAM: 01/11/2021 COMPARISON: NONE HISTORY: Cough TECHNIQUE: 2 views FINDINGS: There is blunting of the costophrenic angles more on the left side than the right. There is no heart failure. There is old right side healed rib fracture. There are no hilar masses. Heart size is fairly normal. IMPRESSION: Small pleural effusions appear new compared to old exam. No heart failure. Pulmonary vasc ularity increased slightly compared to old exam.
[2021-01-11 14:56] LABS: Basophils % (A) 0 %; Eosinophils # (A) 0.1 k/uL (0-0.7); Eosinophils % (A) 1 %; HCT 42.2 % (39.0-53.0); HGB 13.6 gm/dL (13.0-17.5); Lymphocytes # (A) 0.6 k/uL (1.0-4.8); Lymphocytes % (A) 7 %; MCH 31.3 pg (25.0-35.0); MCHC 32.2 g/dL (31.0-37.0); MCV 97.4 fL (80.0-100.0); Mean Platelet Volume 9.4; Monocytes # (A) 0.7 k/uL (0-1.0); Monocytes % (A) 8 %; Neutrophils # (A) 7.4 k/uL (1.3-7.7); Neutrophils % (A) 82 %; Platelet Count 147 k/uL (150-450); RBC 4.33 m/uL (4.30-5.90); RDW 12.8 % (11.5-15.5)
[2021-01-11 15:07] LABS: Albumin 4.4 g/dL (3.5-5.0); Calcium 9.5 mg/dL (8.4-10.2); Magnesium 1.9 mg/dL (1.6-2.3); Total Bilirubin 1.4 mg/dL (0.2-1.3); Total Protein 7.4 g/dL (6.3-8.2)
[2021-01-11 15:18] LABS: Prothrombin Time 10.6 sec (9.0-12.0)
[2021-01-11 15:21] LABS: Partial Thromboplastin Time 21.3 sec (22.0-30.0)
[2021-01-11] MEDS ORDERED: ASPIRIN 325 MG TAB PO STA (16:20)
[2021-01-11] MEDS ORDERED: NITROGLYCERIN OINT 1 INCH/GM PACKET TOPICAL SCH (18:00)
--- NOTE | 2021-01-11 18:51 | CONS ---
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 He is followed on a regular basis by Dr. Misha Guajardo, has a known history of mild coronary artery disease by cardiac catheterization in January 2020, atrial fibrillation, status post cardioversion 48 hours ago. After his discharge he became more dyspneic, came into the emergency room and was diagnosed with heart failure. He is in sinus mechanism. He denies any chest pain. He denies any dizziness or palpitations. He denies any nausea. He has a prior history of atrial fibrillation and was cardioverted in 2019 as well. In the past his left ventricular systolic function was preserved. He has some peripheral edema. No clear orthopnea. He has a history of hypertension and hyperlipidemia. He is nondiabetic, nonsmoker. MEDICATIONS: His medications include: 1. Eliquis 5 mg twice a day. 2. Amiodarone 200 mg daily. 3. Lisinopril 20 mg twice a day. 4. Hydrochlorothiazide 25 mg daily. 5. Hydralazine 25 mg daily. 6. Tamsulosin. 7. Singulair. 8. Metoprolol tartrate 25 mg daily. 9. Furosemide 20 mg daily. 10.Lipitor 20 mg daily. REVIEW OF SYSTEMS: RESPIRATORY SYSTEM: He had dyspnea on exertion. No recent wheezing. He has a prior history of asthma. That has been stable. GI SYSTEM: No recent GI bleeding. No peptic ulcer disease. SYSTEM: No dysuria or hematuria. NERVOUS SYSTEM: No history of stroke or seizure. PHYSICAL EXAMINATION: This is an 80-year-old male, alert, oriented, in no apparent distress. Blood pressure 155/80 with a heart rate in the 70s. HEAD: Normocephalic. EYES: Sclerae anicteric. NECK: Good carotid upstroke. No bruit. No jugular venous distention. LUNGS: A few crackles at the bases. No wheezes. HEART: Regular rate and rhythm. S1, S2. No S3, with systolic murmur, 2/6. No diastolic murmur. No rub. ABDOMEN: Soft, nontender. EXTREMITIES: Trace to 1+ edema. LAB DATA: Chest x-ray revealed mild increase in the pulmonary vasculature. His EKG revealed a sinus mechanism with first-degree AV block and a rate of 75 with borderline intraventricular conduction delay. His BUN and creatinine are 28 and 1.1. Troponin 0.038 and 0.056. NT proBNP 2200. Hemoglobin 13.6. IMPRESSION: 1. Mild congestive heart failure; could be related to the cardioversion and stunning of the myocardium following cardioversion. 2. Mild troponin elevation, most likely related to the cardioversion. Patient underwent cardiac catheterization in December of last year and had mild to moderate coronary artery disease. 3. History of hypertension. 4. History of hyperlipidemia. 5. Ascending aortic dilatation, stable, followed by Dr. Drummond. RECOMMENDATIONS: From the cardiac standpoint, I will continue the IV diuretics. I will re-initiate the anticoagulation and the troponin. I will obtain an echocardiogram with Doppler, follow his renal function. Depending on his progress, further recommendations will be made. Thank you for this consult. Will follow with you. MAGUE / ALEXAN: [id number] /
[2021-01-11] MEDS: FUROSEMIDE 10 MG/ML 4 ML VIAL IV SCH (20:08)
[2021-01-11] MEDS: APIXABAN 5 MG TAB PO SCH (20:08)
[2021-01-11] MEDS: METOPROLOL TARTRATE 25 MG TAB PO SCH (20:09)
[2021-01-11] MEDS: ATORVASTATIN 20 MG TAB PO SCH (20:09)
[2021-01-11] MEDS: hydrALAZINE HCL 25 MG TAB PO SCH (20:09)
[2021-01-11] MEDS: lisinopriL 20 MG TAB PO SCH (20:10)
[2021-01-11] MEDS: MONTELUKAST 10 MG TAB PO SCH (20:13)
--- NOTE | 2021-01-11 21:37 | P.HPIM ---
History of Present Illness H&P Date: 01/11/21 The patient is an 80-year-old male with a PMH of A. fib on Eliquis, systolic CHF, hypertension, and hyperlipidemia who presented to the emergency room with complaints of gradually worsening shortness of breath. Of note, the patient recently underwent cardioversion for his A. fib on . The patient reports that over the past 2 days, he has had decreased exercise tolerance, some lower extremity edema, and paroxysmal nocturnal dyspnea. The patient denied any additional complaints. He denied chest pain, cough, fever, chills. Denied nausea, vomiting, abdominal pain. Chest x-ray in the emergency room revealed findings consistent with fluid overload. EKG revealed sinus rhythm at 75 bpm with a first-degree AV block. Laboratory evaluation was remarkable for troponin of 0.038, platelet count 147, BUN 28, lactic acid 1.4, and proBNP 2200. 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 Review of systems: Pertinent positives and negatives as discussed in HPI, a complete review of systems was performed and all other systems are negative. Physical examination: General: non toxic, no distress, appears at stated age, normal weight Derm: no unusual rashes/lesions no unusual ecchymoses, warm, dry Head: atraumatic, normocephalic, symmetric Eyes: EOMI, no lid lag, anicteric sclera, pupils equal round reactive to light ENT: Nose and ears atraumatic, no thrush, no pharyngeal erythema Neck: No thyromegaly, no cervical lymphadenopathy, trachea midline, supple Mouth: no lip lesion, mucus membranes moist Cardiovascular: S1S2 reg, no murmur, positive posterior tibial pulse bilateral, trace bilateral lower extremity pitting edema, capillary refill less than 2 seconds Lungs: Mild bibasilar rales, no wheezing or rhonchi, no accessory muscle use Abdominal: soft, nontender to palpation, no guarding, no appreciable organomegaly, normal bowel sounds Ext: no gross muscle atrophy, muscle strength 5 out of 5 in all 4 extremities grossly, no contractures, Neuro: CN II-XI grossly intact, light touch intact all 4 extremities, finger to nose within normal limits, Psych: Alert, oriented, appropriate affect Assessment/plan Mild systolic CHF exacerbation -Cardiology consulted -Continue IV Lasix -Intake and output -Cardiac monitoring -Daily weights -Fluid restriction -Repeat echo ordered Troponin elevation, suspected secondary to CHF exacerbation -Trend for now -Cardiac monitoring Chronic conditions: Hypertension, hyperlipidemia, A. fib -Continue with the remaining home meds DVT prophylaxis -Eliquis The patient is admitted with an anticipated greater than 2 midnight stay for evaluation of CHF exacerbation CODE STATUS:Full Code Discussed with: Patient Anticipated discharge date: 2-[address]: Home Past Medical History Past Medical History: Atrial Fibrillation, Atrial Flutter, Asthma, Coronary Artery Disease (CAD), Cancer, Heart Failure, Hearing Disorder / Deafness, Hyp erlipidemia, Hypertension, Prostate Disorder Additional Past Medical History / Comment(s): Hx basal cell, squamous cell lesions. Thoracic aortic aneurysm. Hearing aids. BPH. History of Any Multi-Drug Resistant Organisms: None Reported Past Surgical History: Appendectomy, Heart Catheterization, Hernia Repair Additional Past Surgical History / Comment(s): Bilat Cataracts, Cardioversion x2 - last 08/2020, LIP LESION REMOVED Past Anesthesia/Blood Transfusion Reactions: No Reported Reaction Additional Past Anesthesia/Blood Transfusion Reaction / Comment(s): no blood transfusions Past Psychological History: No Psychological Hx Reported Smoking Status: Never smoker Past Alcohol Use History: Daily Past Drug Use History: None Reported - Past Family History Mother Family Medical History: No Reported History Medications and Allergies Home Medications Medication Instructions Recorded Confirmed Type Apixaban [Eliquis] 5 mg PO BID #30 tab 12/17/18 01/11/21 Rx Atorvastatin [Lipitor] 20 mg PO HS tab 12/17/18 01/11/21 Rx Montelukast Sodium [Singulair] 10 mg PO HS 01/16/19 01/11/21 History lisinopriL 20 mg PO BID 01/16/19 01/11/21 History Furosemide [Lasix] 20 mg PO DAILY 11/17/19 01/11/21 History Metoprolol Tartrate 25 mg PO DAILY 11/17/19 01/11/21 History Tamsulosin [Flomax] 0.4 mg PO DAILY 11/17/19 01/11/21 History hydrALAZINE HCL 25 mg PO BID 11/17/19 01/11/21 History hydroCHLOROthiazide 25 mg PO DAILY 11/17/19 01/11/21 History Amiodarone [Cordarone] 200 mg PO DAILY 01/16/20 01/11/21 History Allergies Allergy/AdvReac Type Severity Reaction Status Date / Time avocado Allergy Itching in Verified 01/11/21 16:57 throat Physical Exam Vitals: Vital Signs Temp Pulse Resp BP Pulse Ox 01/11/21 15:22 70 18 01/11/21 15:11 68 18 01/11/21 13:09 98.6 F 76 20 155/85 91 L Intake and Output 01/11/21 01/11/21 01/11/21 06:59 14:59 22:59 Other: Weight 88.451 kg Results CBC & Chem 7: 01/11/21 14:07 01/11/21 14:07 Labs: Abnormal Lab Results - Last 24 Hours (Table) 01/11/21 01/11/21 01/11/21 Range/Units 14:07 14:07 14:07 Plt Count 147 L (150-450) k/uL Lymphocytes # 0.6 L (1.0-4.8) k/uL APTT 21.3 L (22.0-30.0) sec BUN 28 H (9-20) mg/dL Glucose 110 H (74-99) mg/dL Total Bilirubin 1.4 H (0.2-1.3) mg/dL Troponin I (0.000-0.034) ng/mL 01/11/21 01/11/21 Range/Units 14:07 16:43 Plt Count (150-450) k/uL Lymphocytes # (1.0-4.8) k/uL APTT (22.0-30.0) sec BUN (9-20) mg/dL Glucose (74-99) mg/dL Total Bilirubin (0.2-1.3) mg/dL Troponin I 0.038 H* 0.056 H* (0.000-0.034) ng/mL
[2021-01-12] MEDS ORDERED: FUROSEMIDE 10 MG/ML 4 ML VIAL IV SCH ×3 (00:30→21:00)
[2021-01-12] MEDS: FUROSEMIDE 10 MG/ML 4 ML VIAL IV SCH (07:49)
[2021-01-12] MEDS: ASPIRIN 81 MG PO SCH (08:18)
[2021-01-12] MEDS: hydrALAZINE HCL 25 MG TAB PO SCH ×2 (08:18→20:16)
[2021-01-12] MEDS: METOPROLOL TARTRATE 25 MG TAB PO SCH ×2 (08:18→20:17)
[2021-01-12] MEDS: lisinopriL 20 MG TAB PO SCH ×2 (08:18→20:16)
[2021-01-12] MEDS: AMIODARONE 200 MG TAB PO SCH (08:18)
[2021-01-12] MEDS: TAMSULOSIN 0.4 MG CAP.ER.24H PO SCH (08:18)
[2021-01-12] MEDS: APIXABAN 5 MG TAB PO SCH ×2 (08:18→20:17)
[2021-01-12] MEDS ORDERED: ASPIRIN 325 MG TAB PO SCH (09:00)
[2021-01-12 09:05] LABS: HCT 39.1 % (39.0-53.0); MCH 32.6 pg (25.0-35.0); MCHC 33.3 g/dL (31.0-37.0); MCV 98.1 fL (80.0-100.0); Mean Platelet Volume 9.2; Platelet Count 165 k/uL (150-450); RBC 3.99 m/uL (4.30-5.90); RDW 12.8 % (11.5-15.5); WBC 7.4 k/uL (3.8-10.6)
[2021-01-12 09:19] LABS: Calcium 9.3 mg/dL (8.4-10.2); Magnesium 1.7 mg/dL (1.6-2.3); Potassium 3.7 mmol/L (3.5-5.1)
--- NOTE | 2021-01-12 10:01 | P.PN ---
Subjective Progress Note Date: 01/12/21 Hospital course: The patient is an 80-year-old male with a PMH of A. fib on Eliquis, systolic CHF with the previously known EF of 45-50%, moderate to severe pulmonary hypertension, hypertension, and hyperlipidemia who presented to the emergency room with complaints of gradually worsening shortness of breath. Of note, the patient recently underwent cardioversion for his A. fib on 01/09/21. The patient reported that over the past 2 days, he had decreased exercise tolerance, some lower extremity edema, and paroxysmal nocturnal dyspnea. The patient denied any additional complaints. He denied chest pain, cough, fever, chills. Denied nausea, vomiting, abdominal pain. Chest x-ray in the emergency room revealed findings of increased pulmonary vascularity consistent with fluid overload. EKG revealed sinus rhythm at 75 bpm with a first-degree AV block with HI interval of 212 ms and no noted T-wave or ST abnormalities. Troponins were trended at 0.038, 0.056, and 0.051 with ProBNP 2200. Additional Laboratory findings revealed platelet count 147, BUN 28, and lactic acid 1.4. 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 Physical examination: Patient was seen and fully evaluated at bedside this morning. He reports feeling significantly better and states he was able to get some sleep last night. Patient reports he has had frequent urination documented urinary output over past 24 hours was 1150 mL's, however patient reports having urinary output that was not measured throughout the night when he was in the emergency department. Patient awaiting echocardiogram to be completed at this time. Troponins were trended throughout the night and flat at 0.038, 0.056, and 0.051. Heart Healthy Cardiac diet ordered at this time. Morning labs reveal hypomagnesemia with magnesium of 1.7 and slight elevation in renal function with BUN of 23, creatinine 1.26, and GFR of 53. Lasix decreased to 40 mg IVP every 12 hours at this time. Patient denies having any further complaints at this time including headache, lightheadedness, dizziness, chest pain, palpitations, shortness of breath at rest, abdominal pain, nausea, vomiting, or experiencing any numbness/tingling/weakness in his extremities. General: non toxic, no distress, appears at stated age, normal weight Derm: no unusual rashes/lesions no unusual ecchymoses, warm, dry Head: atraumatic, normocephalic, symmetric Eyes: EOMI, no lid lag, anicteric sclera, pupils equal round reactive to light ENT: Nose and ears atraumatic, no thrush, no pharyngeal erythema Neck: No cervical lymphadenopathy, trachea midline, supple with full ROM Mouth: no lip lesion, mucus membranes moist Cardiovascular: S1S2 reg, murmur, positive posterior tibial pulse bilateral, 1+ pitting bilateral lower extremity edema slightly worse in RLL , capillary refill less than 2 seconds Lungs: Mild bibasilar crackles worse in LLL, no wheezing or rhonchi, no accessory muscle use Abdominal: soft, nontender to palpation, no guarding, no appreciable organomegaly, normal bowel sounds Ext: no gross muscle atrophy, muscle strength 5 out of 5 in all 4 extremities grossly, no contractures, Neuro: CN II-XI grossly intact, movement and sensation intact all 4 extremities Psych: Alert, oriented, appropriate affect Assessment and Plan of Care: Systolic CHF exacerbation -Cardiology consulted -Continue IV Lasix, decreased to 40 mg q12 hours -Intake and output -Cardiac monitoring -Daily weights -Fluid restriction -Repeat echo ordered (Echocardiogram completed 12/15/18 revealed an EF of 45-50%, moderate tricuspid regurgitation, moderate to severe mitral regurgitation, and moderate to severe pulmonary hypertension) -Continue daily medication regimen with amiodarone, Eliquis, aspirin, atorvastatin, hydralazine, lisinopril, and metoprolol. Troponin elevation, likely secondary to CHF exacrbation -Troponins were trended at 0.038, 0.056, and 0.051 with ProBNP 2200 -Cardiac monitoring -Continue daily aspirin, atorvastatin, and Eliquis Hypomagnesemia -Magnesium 2 g IVPB ordered for replacement and we will continue to monitor with repeat a.m. labs and replace abnormal electrolyte values as needed Paroxysmal atrial fibrillation status post cardiac ablation on 01/09/21 -Continue daily medication regimen with amiodarone and metoprolol as well as anticoagulation with Eliquis. Hypertension -Monitor vital signs and Continue daily medication regimen with lisinopril, metoprolol, and amiodarone daily. Hyperlipidemia -Continue daily medication regimen with atorvastatin 20 mg nightly -Heart healthy diet BPH -Continue daily medication regimen with Flomax. DVT prophylaxis: Eliquis CODE STATUS:Full Code Discussed with: Patient Anticipated discharge date: 1-[address]: Home A total of 45 minutes was spent on the care of this complex patient more than 50% of the time was spent in counseling and care coordination. Objective - Vital Signs Vital signs: Vital Signs Temp 98.5 F 01/11/21 20:00 Pulse 56 L 01/12/21 04:00 Resp 20 01/12/21 04:00 BP 122/67 01/12/21 04:00 Pulse Ox 91 L 01/12/21 04:00 Intake & Output 01/11/21 01/12/21 01/12/21 18:59 06:59 18:59 Output Total 1150 Balance -1150 Weight 88.451 kg 87 kg Output: Urine 1150 Other: # Voids 3 1 - Labs CBC & Chem 7: 01/12/21 08:09 01/12/21 08:09 Labs: Abnormal Lab Results - Last 24 Hours (Table) 01/11/21 01/11/21 01/11/21 Range/Units 14:07 14:07 14:07 Plt Count 147 L (150-450) k/uL Lymphocytes # 0.6 L (1.0-4.8) k/uL APTT 21.3 L (22.0-30.0) sec BUN 28 H (9-20) mg/dL Glucose 110 H (74-99) mg/dL Total Bilirubin 1.4 H (0.2-1.3) mg/dL Troponin I (0.000-0.034) ng/mL 01/11/21 01/11/21 01/11/21 Range/Units 14:07 16:43 19:36 Plt Count (150-450) k/uL Lymphocytes # (1.0-4.8) k/uL APTT (22.0-30.0) sec BUN (9-20) mg/dL Glucose (74-99) mg/dL Total Bilirubin (0.2-1.3) mg/dL Troponin I 0.038 H* 0.056 H* 0.051 H* (0.000-0.034) ng/mL
[2021-01-12] MEDS: MAGNESIUM SULFATE-D5W PMX 1 GM in DEXTROSE/WATER 1 100ML.BAG IVPB SCH ×2 (11:35→12:41)
--- NOTE | 2021-01-12 13:23 | PN ---
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 He underwent cardioversion recently, on January 09. He continues to be in sinus mechanism. He is feeling much better today. His breathing is better. He was able to lay supine without difficulty. He denies any dizziness or palpitation. He denies any nausea. He continues to be on amiodarone 200 mg daily, Eliquis 5 mg twice a day, aspirin 81 mg daily, Lipitor 20 mg daily, Lasix 40 mg IV q.12 hours, lisinopril 20 mg twice a day, metoprolol tartrate 25 mg twice a day and Flomax. PHYSICAL EXAMINATION: Blood pressure 122/60 with a heart rate in the 60s. LUNGS: With few crackles at the bases. HEART: Regular rate and rhythm. S1, S2. No S3 with systolic murmur ejection type heard at the base, no diastolic murmur. ABDOMEN: Soft, nontender. EXTREMITIES: Trace edema. LAB DATA: BUN and creatinine 23 and 1.26, potassium 3.7. His peak troponin is 0.056. Hemoglobin is 13. IMPRESSION: 1. Congestive heart failure, probably worsened by the cardioversion and stunting of the myocardium. 2. Atrial fibrillation, remains in sinus mechanism. 3. History of cardiac catheterization done recently. 4. Troponin elevation most likely related to the cardioversion. 5. History of hypertension. RECOMMENDATIONS: I will switch him to oral diuretics, continue his medical regimen. Will obtain echocardiogram with Doppler tomorrow and if he remains stable I would expect he should be able to be discharged home tomorrow and follow up with Dr. Guajardo. MMODL / IJN: [id number] /
--- NOTE | 2021-01-12 16:23 | P.CNPUL ---
History of Present Illness Consult date: 01/12/21 Requesting physician: Fred Zaldivar Reason for consult: dyspnea, abnormal CXR/CT Chief complaint: Shortness of breath History of present illness: This is a very pleasant 80-year-old male patient with a history of systolic congestive heart failure with ejection fraction of 45-50%, moderate to severe pulmonary hypertension, hypertension, hyperlipidemia, paroxysmal atrial fibrillation anticoagulated with Eliquis had recently undergone a cardioversion on 01/09/2021. Since that time the patient has been feeling more short of breath than usual. Decreased exercise tolerance. Some mild edema of the lower extremities. He presented here to the emergency room yesterday for the same. Chest x-ray did reveal evidence of fluid volume overload with increased pulmonary vascular congestion as. Troponin leak of 0.03, 0.056, 0.051. ProBNP level is 2200. Follow-up echocardiogram is pending. He is currently in sinus rhythm. He is seen today in consultation on the selective care unit. He si tting up in a chair at the bedside. Awake and alert in no acute distress. He is maintaining good O2 saturations in the mid 90s on room air. He's been afebrile. Hemodynamically stable. White count 7.4. Hemoglobin 13.0. Sodium 142. Potassium 3.7. Creatinine 1.26. Jefferson virus not detected. He had been initiated on Lasix 40 mg every 8 hours. Continued on Eliquis. Review of Systems REVIEW OF SYSTEMS: CONSTITUTIONAL: Denies any recent significant weight loss or weight gain. EYES: Denies change in vision. EARS, NOSE, MOUTH, THROAT: Denies headaches, denies sore throat. CARDIOVASCULAR: Denies chest pain, palpitations or syncopal episodes. RESPIRATORY: Positive for shortness of breath, cough, congestion no hemoptysis. GASTROINTESTINAL: Denies change in appetite, denies abdominal pain GENITOURINARY: Denies hematuria, denies infections. MUSKULOSKELETAL: Denies pain, denies swelling. INTEGUMENTARY: Denies rash, denies eczema. NEUROLOGICAL: Denies recent memory loss, no recent seizure activity. PSYCHIATRIC: Denies anxiety, denies depression. HEMATOLOGIC/LYMPHATIC: Denies anemia, denies enlarged lymph nodes. Past Medical History Past Medical History: Atrial Fibrillation, Atrial Flutter, Asthma, Coronary Artery Disease (CAD), Cancer, Heart Failure, Hearing Disorder / Deafness, Hyperlipidemia, Hypertension, Prostate Disorder Additional Past Medical History / Comment(s): Hx basal cell, squamous cell lesions. Thoracic aortic aneurysm. Hearing aids. BPH. History of Any Multi-Drug Resistant Organisms: None Reported Past Surgical History: Appendectomy, Heart Catheterization, Hernia Repair Additional Past Surgical History / Comment(s): Bilat Cataracts, Cardioversion x2 - last 08/2020, LIP LESION REMOVED Past Anesthesia/Blood Transfusion Reactions: No Reported Reaction Additional Past Anesthesia/Blood Transfusion Reaction / Comment(s): no blood transfusions Past Psychological History: No Psychological Hx Reported Smoking Status: Never smoker Past Alcohol Use History: Daily Past Drug Use History: None Reported - Past Family History Mother Family Medical History: No Reported History Medications and Allergies Home Medications Medication Instructions Recorded Confirmed Type Apixaban [Eliquis] 5 mg PO BID #30 tab 12/17/18 01/11/21 Rx Atorvastatin [Lipitor] 20 mg PO HS tab 12/17/18 01/11/21 Rx Montelukast Sodium [Singulair] 10 mg PO HS 01/16/19 01/11/21 History lisinopriL 20 mg PO BID 01/16/19 01/11/21 History Furosemide [Lasix] 20 mg PO DAILY 11/17/19 01/11/21 History Metoprolol Tartrate 25 mg PO DAILY 11/17/19 01/11/21 History Tamsulosin [Flomax] 0.4 mg PO DAILY 11/17/19 01/11/21 History hydrALAZINE HCL 25 mg PO BID 11/17/19 01/11/21 History hydroCHLOROthiazide 25 mg PO DAILY 11/17/19 01/11/21 History Amiodarone [Cordarone] 200 mg PO DAILY 01/16/20 01/11/21 History Allergies Allergy/AdvReac Type Severity Reaction Status Date / Time avocado Allergy Itching in Verified 01/11/21 16:57 throat Physical Exam Vitals: Vital Signs Temp Pulse Pulse Resp BP BP Pulse Ox 01/12/21 15:26 97.8 F 70 16 103/67 97 01/12/21 12:00 97.9 F 56 L 16 89/57 94 L 01/12/21 08:05 97.9 F 61 18 122/60 95 01/12/21 04:00 56 L 20 122/67 91 L 01/12/21 02:00 58 L 01/12/21 00:00 58 L 20 138/78 93 L 01/11/21 20:05 73 18 144/91 94 L 01/11/21 20:00 98.5 F 74 20 148/87 92 L 01/11/21 17:10 98.5 F 74 20 148/87 92 L Intake and Output 01/12/21 01/12/21 01/12/21 06:59 14:59 22:59 Intake Total 240 Output Total 1150 600 Balance -1150 -360 Intake: Oral 240 Output: Urine 1150 600 Other: # Voids 1 # Bowel Movements 1 Weight 87 kg GENERAL EXAM: Alert, active, very pleasant 80-year-old gentleman, on room air, comfortable in no apparent distress. HEAD: Normocephalic. EYES: Normal reaction of pupils, equal size. NOSE: Clear with pink turbinates. THROAT: No erythema or exudates. NECK: No masses, no JVD. CHEST: No chest wall deformity. LUNGS: Equal air entry with faint crackles in the posterior bases. CVS: S1 and S2 normal with no audible murmur, regular rhythm. ABDOMEN: No hepatosplenomegaly, normal bowel sounds, no guarding or rigidity. SPINE: No scoliosis or deformity SKIN: No rashes CENTRAL NERVOUS SYSTEM: No focal deficits, tone is normal in all 4 extremities. EXTREMITIES: There is trace peripheral edema. No clubbing, no cyanosis. Peripheral pulses are intact. Results - Laboratory Findings CBC and BMP: 01/12/21 08:09 01/12/21 08:09 PT/INR, D-dimer PT 10.6 sec (9.0-12.0) 01/11/21 14:07 INR 1.0 (<1.2) 01/11/21 14:07 Abnormal lab findings: Abnormal Labs 01/11/21 01/11/21 01/11/21 14:07 14:07 14:07 RBC Plt Count 147 L Lymphocytes # 0.6 L APTT 21.3 L Carbon Dioxide BUN 28 H Creatinine Glucose 110 H Total Bilirubin 1.4 H Troponin I 01/11/21 01/11/21 01/11/21 14:07 16:43 19:36 RBC Plt Count Lymphocytes # APTT Carbon Dioxide BUN Creatinine Glucose Total Bilirubin Troponin I 0.038 H* 0.056 H* 0.051 H* 01/12/21 01/12/21 08:09 08:09 RBC 3.99 L Plt Count Lymphocytes # APTT Carbon Dioxide 31 H BUN 23 H Creatinine 1.26 H Glucose Total Bilirubin Troponin I - Diagnostic Findings Chest x-ray: image reviewed Assessment and Plan Assessment: 1 Shortness of breath secondary to suspected acute exacerbation of chronic systolic congestive heart failure 2 Troponin leak, possible stunned myocardium secondary to cardioversion on 01/09/2021 3 History of atrial fibrillation anticoagulated with Eliquis 4 History of mild intermittent chronic bronchial asthma 5 Hyperlipidemia 6 BPH. 7 Hearing disorder 8 Hypertension Plan: The patient was seen and evaluated by Dr. Covington Chest x-ray and labs reviewed Echocardiogram pending Lasix decreased to 40 mg IV every 12 hours We will continue to follow and make further recommendations based on his clinical status I, the cosigning physician, performed a history & physical examination of the patient. Lungs sounds faint crackles in posterior bases. Maintaining good O2 saturations in the 90s on room air. I discussed the assessment and plan of care with my nurse practitioner, Keyla Moore. I attest to the above consultation as dictated by her. Time with Patient: Greater than 30
[2021-01-12] MEDS: ATORVASTATIN 20 MG TAB PO SCH (20:16)
[2021-01-12] MEDS: MONTELUKAST 10 MG TAB PO SCH (20:17)
[2021-01-13] MEDS: AMIODARONE 200 MG TAB PO SCH (07:47)
[2021-01-13] MEDS: lisinopriL 20 MG TAB PO SCH (07:47)
[2021-01-13] MEDS: ASPIRIN 81 MG PO SCH (07:47)
[2021-01-13] MEDS: hydrALAZINE HCL 25 MG TAB PO SCH (07:47)
[2021-01-13] MEDS: APIXABAN 5 MG TAB PO SCH (07:47)
[2021-01-13] MEDS: METOPROLOL TARTRATE 25 MG TAB PO SCH (07:48)
[2021-01-13] MEDS: TAMSULOSIN 0.4 MG CAP.ER.24H PO SCH (07:48)
[2021-01-13 08:11] LABS: HCT 43.4 % (39.0-53.0); HGB 14.2 gm/dL (13.0-17.5); MCHC 32.8 g/dL (31.0-37.0); MCV 97.5 fL (80.0-100.0); Mean Platelet Volume 9.5; Platelet Count 188 k/uL (150-450); RBC 4.45 m/uL (4.30-5.90); RDW 12.6 % (11.5-15.5); WBC 5.9 k/uL (3.8-10.6)
[2021-01-13 08:17] LABS: Calcium 9.4 mg/dL (8.4-10.2); Magnesium 2.1 mg/dL (1.6-2.3); Potassium 3.5 mmol/L (3.5-5.1)
[2021-01-13] MEDS ORDERED: FUROSEMIDE 20 MG TAB PO SCH (09:00)
[2021-01-13 09:39] VITALS: BP 146/76; PULSE 65; RESP 17; TEMP 97.8
--- NOTE | 2021-01-13 10:50 | ECHOF ---
Referral Reason:chf MEASUREMENTS -------- HEIGHT: 180.3 cm WEIGHT: 86.2 kg BP: RVIDd: 4.2 cm (< 3.3) IVSd: 1.4 cm (0.6 - 1.1) LVIDd: 5.2 cm (3.9 - 5.3) LVPWd: 1.6 cm (0.6 - 1.1) IVSs: 2.1 cm LVIDs: 2.3 cm LVPWs: 1.7 cm LAESV Index (A-L): 80.47 ml/m Ao Diam: 3.4 cm (2.0 - 3.7) AV Cusp: 2.3 cm (1.5 - 2.6) LA Diam: 4.8 cm (2.7 - 3.8) MV EXCURSION: 17.354 mm (> 18.000) MV EF SLOPE: 142 mm/s (70 - 150) EPSS: 0.5 cm MV E Cory: 1.05 m/s MV DecT: 197 ms MV A Cory: 0.51 m/s MV E/A Ratio: 2.04 AR PHT: 728 ms RAP: 5.00 mmHg RVSP: 47.51 mmHg FINDINGS -------- This was a technically good study. The left ventricular size is normal. There is moderate concentric left ventricular hypertrophy. O verall left ventricular systolic function is normal with, an EF between 55 - 60 %. Increased LAP Gr aishwarya 2 Diastolic Dysfunction. The right ventricle is severely enlarged. LA is severely dilated >40 ml/m2 The right atrial size is normal. Interatrial and interventricular septum intact. Aortic valve is trileaflet and is mildly thickened. Trace amount of aortic regurgitation. The mitral valve is normal. The mitral valve leaflets are mildly thickened. Mild mitral regurgita tion is present. The tricuspid valve appears structurally normal. Mild tricuspid regurgitation present. There is m oderate pulmonary hypertension. The right ventricular systolic pressure, as measured by Doppler, is 47.51mmHg. Trace/mild (physiologic) pulmonic regurgitation. The aortic root size is normal. Normal inferior vena cava with normal inspiratory collapse consistent with estimated right atrial pre ssure of 5 mmHg. There is no pericardial effusion. CONCLUSIONS -------- 1. The left ventricular size is normal. 2. There is moderate concentric left ventricular hypertrophy. 3. Overall left ventricular systolic function is normal with, an EF between 55 - 60 %. 4. Increased LAP Grade 2 Diastolic Dysfunction. 5. The right ventricle is severely enlarged. 6. LA is severely dilated >40 ml/m2 7. Aortic valve is trileaflet and is mildly thickened. 8. Trace amount of aortic regurgitation. 9. The mitral valve leaflets are mildly thickened. 10. Mild mitral regurgitation is present. 11. Mild tricuspid regurgitation present. 12. There is moderate pulmonary hypertension. 13. The right ventricular systolic pressure, as measured by Doppler, is 47.51mmHg. 14. Trace/mild (physiologic) pulmonic regurgitation. 15. There is no pericardial effusion. DOUBLE END TRIMMER: Anum Cornejo RDCS
--- NOTE | 2021-01-13 11:41 | P.DS ---
Providers Date of admission: 01/11/21 16:21 Expected date of discharge: 01/13/21 Attending physician: Bety Dodson MD Consults: 01/11/21 16:20 Consult Physician Routine Consulting Provider: Mark Covington Consult Reason/Comments: dyspnea Do you want consulting provider notified?: Yes Consult Physician Routine Consulting Provider: Sunil Guajardo Consult Reason/Comments: chf Do you want consulting provider notified?: Yes Primary care physician: [facility] Course: The patient is an 80-year-old male with a PMH of A. fib on Eliquis, systolic CHF, hypertension, and hyperlipidemia who presented to the emergency room with complaints of gradually worsening shortness of breath. Of note, the patient recently underwent cardioversion for his A. fib. Prior to admission he had decreased exercise tolerance, some lower extremity edema, and paroxysmal nocturnal dyspnea. The patient denied any additional complaints. He denied chest pain, cough, fever, chills. Denied nausea, vomiting, abdominal pain. Chest x-ray in the emergency room revealed findings consistent with fluid overload. EKG revealed sinus rhythm at 75 bpm with a first-degree AV block. Laboratory evaluation was remarkable for troponin of 0.038, platelet count 147, BUN 28, lactic acid 1.4, and proBNP 2200. 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 Upon admission troponin was cycled and remained essentially flat. He was diuresed with IV Lasix 20 mg IV twice a day. He felt significantly better with that. He was seen by cardiology and pulmonary services. Elevated troponin was deemed to be secondary to stunned myocardium due to the recent cardioversion. He had an echocardiogram that showed normal ejection fraction, grade 2 diastolic dysfunction, severely dilated LA. It also showed moderate pulmonary hypertension. Patient was cleared by cardiology and pulmonary for discharge. He will be discharged home in stable condition. Time for discharge 35 minutes. Plan - Discharge Summary Discharge Rx Participant: Yes New Discharge Prescriptions: Continue Apixaban [Eliquis] 5 mg PO BID #30 tab Atorvastatin [Lipitor] 20 mg PO HS tab Montelukast Sodium [Singulair] 10 mg PO HS lisinopriL 20 mg PO BID Tamsulosin [Flomax] 0.4 mg PO DAILY Furosemide [Lasix] 20 mg PO DAILY hydroCHLOROthiazide 25 mg PO DAILY hydrALAZINE HCL 25 mg PO BID Metoprolol Tartrate 25 mg PO DAILY Amiodarone [Cordarone] 200 mg PO DAILY Discharge Medication List Apixaban [Eliquis] 5 mg PO BID #30 tab 12/17/18 [Rx] Atorvastatin [Lipitor] 20 mg PO HS tab 12/17/18 [Rx] Montelukast Sodium [Singulair] 10 mg PO HS 01/16/19 [History] lisinopriL 20 mg PO BID 01/16/19 [History] Furosemide [Lasix] 20 mg PO DAILY 11/17/19 [History] Metoprolol Tartrate 25 mg PO DAILY 11/17/19 [History] Tamsulosin [Flomax] 0.4 mg PO DAILY 11/17/19 [History] hydrALAZINE HCL 25 mg PO BID 11/17/19 [History] hydroCHLOROthiazide 25 mg PO DAILY 11/17/19 [History] Amiodarone [Cordarone] 200 mg PO DAILY 01/16/20 [History] Follow up Appointment(s)/Referral(s): Domenic Corado DO [Primary Care Provider] - 1-2 days
[2021-01-13 14:16] VITALS: BMI 25.0
--- NOTE | 2021-01-13 15:00 | P.PN ---
Subjective Progress Note Date: 01/13/21 HISTORY OF PRESENT ILLNESS: This is an 80-year-old male, patient of Dr. Guajardo, who is admitted to the hospital secondary to congestive heart failure. The patient was examined this morning at the bedside. Patient denies chest pain or pressure. He denies shortness of breath. He has been transitioned to oral Lasix. Vital signs are stable. Echocardiogram completed revealed ejection fraction 55-60%. PHYSICAL EXAM: VITAL SIGNS: Reviewed. GENERAL: Well-developed in no acute distress. NECK: Supple. No JVD or thyromegaly LUNGS: Respirations even and unlabored. Lungs essentially clear to auscultation bilaterally. HEART: Regular rate and rhythm. S1 and S2 heard. EXTREMITIES: Normal range of motion. No clubbing or cyanosis. Peripheral pulses intact. No lower extremity edema ASSESSMENT: Acute diastolic congestive heart failure History of atrial fibrillation with recent cardioversion Hypertension PLAN: Continue current cardiac medications Patient is stable for DC home today Patient to follow up outpatient with Dr. Guajardo Nurse practitioner note has been reviewed by physician. Signing provider agrees with the documented findings, assessment, and plan of care. Objective - Vital Signs Vital signs: Vital Signs Temp 97.8 F 01/13/21 07:44 Pulse 65 01/13/21 07:44 Resp 17 01/13/21 07:44 BP 146/76 01/13/21 07:44 Pulse Ox 94 L 01/13/21 07:44 Intake & Output 01/12/21 01/13/21 01/13/21 18:59 06:59 18:59 Intake Total 240 610 Output Total 600 550 300 Balance -360 -550 310 Weight 86.2 kg 86.2 kg Intake: Oral 240 610 Output: Urine 600 550 300 Other: # Voids 1 # Bowel Movements 1 - Labs CBC & Chem 7: 01/13/21 07:50 01/13/21 07:50 Labs: Abnormal Lab Results - Last 24 Hours (Table) 01/13/21 Range/Units 07:50 Carbon Dioxide 31 H (22-30) mmol/L BUN 31 H (9-20) mg/dL Creatinine 1.31 H (0.66-1.25) mg/dL Glucose 109 H (74-99) mg/dL
--- NOTE | 2021-01-13 15:25 | P.PN ---
Subjective Progress Note Date: 01/13/21 Principal diagnosis: Shortness of breath This is a very pleasant 80-year-old male patient with a history of systolic congestive heart failure with ejection fraction of 45-50%, moderate to severe pulmonary hypertension, hypertension, hyperlipidemia, paroxysmal atrial fibrillation anticoagulated with Eliquis had recently undergone a cardioversion on 01/09/2021. Since that time the patient has been feeling more short of breath than usual. Decreased exercise tolerance. Some mild edema of the lower extremities. He presented here to the emergency room yesterday for the same. Chest x-ray did reveal evidence of fluid volume overload with increased pulmonary vascular congestion as. Troponin leak of 0.03, 0.056, 0.051. ProBNP level is 2200. Follow-up echocardiogram is pending. He is currently in sinus rhythm. He is seen today in consultation on the selective care unit. He sitting up in a chair at the bedside. Awake and alert in no acute distress. He is maintaining good O2 saturations in the mid 90s on room air. He's been afebrile. Hemodynamically stable. White count 7.4. Hemoglobin 13.0. Sodium 142. Potassium 3.7. Creatinine 1.26. Jefferson virus not detected. He had been initiated on Lasix 40 mg every 8 hours. Continued on Eliquis. On 01/13/2021 patient seen in follow-up on selective care unit. He is awake alert, in no acute distress, he sitting up in the chair, his room air pulse ox is 94-96%, breathing comfortably, afebrile, blood pressure stable, patient has been diuresed, he is feeling better, breathing easier, he is in -910 mL net flui d balance over the last 24 hours. No complaints of chest pain. His vital signs have been stable, echocardiogram has been reviewed showing ejection fraction of 55-60%. Patient is in sinus mechanism. Patient is on oral amiodarone, metoprolol, and he is on Apixaban for anticoagulation Objective - Vital Signs Vital signs: Vital Signs Temp 97.8 F 01/13/21 07:44 Pulse 65 01/13/21 07:44 Resp 17 01/13/21 07:44 BP 146/76 01/13/21 07:44 Pulse Ox 94 L 01/13/21 07:44 Intake & Output 01/12/21 01/13/21 01/13/21 18:59 06:59 18:59 Intake Total 240 610 Output Total 600 550 300 Balance -360 -550 310 Weight 86.2 kg 86.2 kg Intake: Oral 240 610 Output: Urine 600 550 300 Other: # Voids 1 # Bowel Movements 1 - Exam GENERAL EXAM: Alert, poorly pleasant, 80-year-old white male, on room air, with a pulse ox of 94-96% comfortable in no apparent distress. HEAD: Normocephalic/atraumatic. EYES: Normal reaction of pupils, equal size. Conjunctiva pink, sclera white. NOSE: Clear with pink turbinates. THROAT: No erythema or exudates. NECK: No masses, no JVD, no thyroid enlargement, no adenopathy. CHEST: No chest wall deformity. Symmetrical expansion. LUNGS: Equal air entry with no crackles, wheeze, rhonchi or dullness. CVS: Regular rate and rhythm, normal S1 and S2, no gallops, no murmurs, no rubs ABDOMEN: Soft, nontender. No hepatosplenomegaly, normal bowel sounds, no guarding or rigidity. EXTREMITIES: No clubbing, no edema, no cyanosis, 2+ pulses and upper and lower extremities. MUSCULOSKELETAL: Muscle strength and tone normal. SPINE: No scoliosis or deformity SKIN: No rashes CENTRAL NERVOUS SYSTEM: Alert and oriented -3. No focal deficits, tone is normal in all 4 extremities. PSYCHIATRIC: Alert and oriented -3. Appropriate affect. Intact judgment and insight. - Labs CBC & Chem 7: 01/13/21 07:50 01/13/21 07:50 Labs: Abnormal Lab Results - Last 24 Hours (Table) 01/13/21 Range/Units 07:50 Carbon Dioxide 31 H (22-30) mmol/L BUN 31 H (9-20) mg/dL Creatinine 1.31 H (0.66-1.25) mg/dL Glucose 109 H (74-99) mg/dL Assessment and Plan Plan: Assessment: #1. Acute exacerbation of chronic systolic congestive heart failure. Current echocardiogram from 01/13/2021 showed improved LV function and EF of 55-60%, mild pulmonary hypertension with the right-sided pressure of 47.5 mmHg, mild MR, mild TR, and trace amount of aortic regurgitation. #2. Troponin leak, likely related to recent history of cardioversion on 01/09/2021 for A. fib with RVR. #3. History of atrial fibrillation on Eliquis #4. History of mild intermittent chronic bronchial asthma #5. Hyperlipidemia #6. BPH #7. Hearing disorder, wears a hearing aid #8. Hypertension Plan: Echocardiogram has been reviewed, today's labs have been reviewed, Patient is breathing easier, his been diuresed, he is in negative fluid balance, proBNP has improved He has been transitioned to oral diuretics His heart rate is controlled, he continues on oral anticoagulation Patient is being discharged home today He will need outpatient follow-up with Dr. Corado in the office in 7-10 days I performed a history & physical examination of the patient and discussed their management with my nurse practitioner, Belia Camacho. I reviewed the nurse practitioner's note and agree with the documented findings and plan of care. Lung sounds are positive for bibasilar crackles throughout the lung guadalupe. The findings and the impression was discussed with the patient. I attest to the documentation by the nurse practitioner. Time with Patient: Less than 30
== END 2021-01-13 14:53 | disposition home or self-care (01) | DRG 292 ==
LOC: EC 13:07 → 3SCARD 16:21
PROVIDERS: ADMIT Internal Medicine; ATTEND Internal Medicine
DX: I11.0 Hypertensive heart disease with heart failure (principal); I48.92 Unspecified atrial flutter; I50.23 Acute on chronic systolic (congestive) heart failure; I08.3 Combined rheumatic disorders of mitral, aortic and tricuspid valves; Z20.822 Contact with and (suspected) exposure to COVID-19; E78.5 Hyperlipidemia, unspecified; H91.90 Unspecified hearing loss, unspecified ear; R79.89 Other specified abnormal findings of blood chemistry; I25.10 Atherosclerotic heart disease of native coronary artery without angina pectoris; I27.20 Pulmonary hypertension, unspecified; I44.0 Atrioventricular block, first degree; I48.0 Paroxysmal atrial fibrillation; I77.810 Thoracic aortic ectasia; J45.909 Unspecified asthma, uncomplicated; N40.0 Benign prostatic hyperplasia without lower urinary tract symptoms; Z79.01 Long term (current) use of anticoagulants; Z79.82 Long term (current) use of aspirin; Z79.899 Other long term (current) drug therapy; Z98.42 Cataract extraction status, left eye; Z98.41 Cataract extraction status, right eye; Z85.828 Personal history of other malignant neoplasm of skin
CPT/HCPCS: 36415; 71046; 80048; 80053; 83605; 83735; 83880; 84484; 85025; 85027; 85610; 85730; 87635; 92960; 93005; 93306; 94640; 99285

== ENCOUNTER → 2021-09-01 | Outpatient (CLI) | payer MEDICARE, MEDICAID ==
[2021-09-01 14:26] LABS: Basophils # (A) 0.04 X 10*3/uL (0.00-0.10); Basophils % (A) 1.1 %; Eosinophils # (A) 0.17 X 10*3/uL (0.04-0.35); Eosinophils % (A) 4.6 %; HCT 38.8 % (39.6-50.0); HGB 12.5 g/dL (13.0-17.0); Immature Grans, Automated 0.8 %; Lymphocytes # (A) 0.94 X 10*3/uL (0.90-5.00); Lymphocytes % (A) 25.7 %; MCH 31.7 pg (27.0-32.0); MCHC 32.2 g/dL (32.0-37.0); MCV 98.5 fL (80.0-97.0); Mean Platelet Volume 12.3 fL (9.5-12.2); Monocytes # (A) 0.61 X 10*3/uL (0.20-1.00); Monocytes % (A) 16.7 %; NRBC Per 100 WBC 0 /100 WBCS (0.0-0.0); Neutrophils # (A) 1.87 X 10*3/uL (1.80-7.70); Neutrophils % (A) 51.1 %; Platelet Count 171 X 10*3/uL (140-440); RBC 3.94 X 10*6/uL (4.40-5.60); RDW 13.4 % (11.5-14.5); WBC 3.66 X 10*3/uL (4.50-10.00)
[2021-09-01 15:02] LABS: Prostate Specific Antigen 1.7 ng/mL (0.00-6.50); T4, Free (Free Thyroxine) 1.49 ng/dL (0.800-1.800)
== END | disposition home or self-care (01) ==
LOC: LABWHC1 09:18
PROVIDERS: ATTEND Internal Medicine Critical Care Medicine
DX: Z00.00 Encounter for general adult medical examination without abnormal findings (principal); Z12.5 Encounter for screening for malignant neoplasm of prostate; J45.909 Unspecified asthma, uncomplicated; I10 Essential (primary) hypertension; I48.92 Unspecified atrial flutter; E78.5 Hyperlipidemia, unspecified
CPT/HCPCS: 36415; 82306; 83036; 84153; 84439; 84443; 85025

== ENCOUNTER 2021-10-24 18:55 | Emergency (ER) | payer MEDICARE, MEDICAID ==
[2021-10-24 19:01] VITALS: BP 176/76; PULSE 79; RESP 20; TEMP 97.9
--- NOTE | 2021-10-24 19:33 | ED ---
General Adult HPI - General Chief complaint: Extremity Injury, Lower Stated complaint: fell - knee pain/swelling Time Seen by Provider: 10/24/21 18:58 Source: patient, RN notes reviewed, old records reviewed Mode of arrival: ambulatory Limitations: no limitations - History of Present Illness Initial comments: 81-year-old male presents for evaluation of left leg swelling. Patient states that about 3 weeks ago he had fallen with minor knee injury on the left. He states that he had some pain which is quite minimal for 3 days and this resolved. He's noted increased swelling in the calf and foot over the past several weeks. Patient is on Eliquis, 5 mg twice a day. He has no fever. No chest pain. No difficulty breathing. - Related Data Home Medications Medication Instructions Recorded Confirmed Montelukast Sodium [Singulair] 10 mg PO HS 01/16/19 01/11/21 lisinopriL 20 mg PO BID 01/16/19 01/11/21 Furosemide [Lasix] 20 mg PO DAILY 11/17/19 01/11/21 Metoprolol Tartrate 25 mg PO DAILY 11/17/19 01/11/21 Tamsulosin [Flomax] 0.4 mg PO DAILY 11/17/19 01/11/21 hydrALAZINE HCL 25 mg PO BID 11/17/19 01/11/21 hydroCHLOROthiazide 25 mg PO DAILY 11/17/19 01/11/21 Amiodarone [Cordarone] 200 mg PO DAILY 01/16/20 01/11/21 Previous Rx's Medication Instructions Recorded Apixaban [Eliquis] 5 mg PO BID #30 tab 12/17/18 Atorvastatin [Lipitor] 20 mg PO HS tab 12/17/18 Allergies Allergy/AdvReac Type Severity Reaction Status Date / Time avocado Allergy Itching in Verified 10/24/21 19:01 throat Review of Systems ROS Statement: Those systems with pertinent positive or pertinent negative responses have been documented in the HPI. ROS Other: All systems not noted in ROS Statement are negative. Past Medical History Past Medical History: Atrial Fibrillation, Atrial Flutter, Asthma, Coronary Artery Disease (CAD), Cancer, Heart Failure, Hearing Disorder / Deafness, Hyperlipidemia, Hypertension, Prostate Disorder Additional Past Medical History / Comment(s): Hx basal cell, squamous cell lesions. Thoracic aortic aneurysm. Hearing aids. BPH. History of Any Multi-Drug Resistant Organisms: None Reported Past Surgical History: Appendectomy, Heart Catheterization, Hernia Repair Additional Past Surgical History / Comment(s): Bilat Cataracts, Cardioversion x2 - last 08/2020, LIP LESION REMOVED Past Anesthesia/Blood Transfusion Reactions: No Reported Reaction Additional Past Anesthesia/Blood Transfusion Reaction / Comment(s): no blood transfusions Past Psychological History: No Psychological Hx Reported Smoking Status: Never smoker Past Alcohol Use History: Daily Past Drug Use History: None Reported - Past Family History Mother Family Medical History: No Reported History General Exam Limitations: no limitations General appearance: alert, in no apparent distress Head exam: Present: atraumatic, normocephalic Eye exam: Present: normal appearance, PERRL ENT exam: Present: normal exam Neck exam: Present: normal inspection. Absent: tenderness, meningismus Respiratory exam: Present: normal lung sounds bilaterally. Absent: respiratory distress Cardiovascular Exam: Present: regular rate, normal rhythm, systolic murmur GI/Abdominal exam: Absent: distended, tenderness Extremities exam: Present: pedal edema (. Edema, soft tissue swelling from the foot to mid thigh) Neurological exam: Present: alert, oriented X3, CN II-XII intact. Absent: motor sensory deficit Psychiatric exam: Present: normal affect, normal mood Skin exam: Present: warm, dry, intact. Absent: cyanosis, diaphoretic Course Vital Signs 10/24/21 18:58 Temperature 97.9 F Pulse Rate 79 Respiratory 20 Rate Blood Pressure 176/76 O2 Sat by Pulse 97 Oximetry Medical Decision Making - Medical Decision Making 81-year-old male with swelling to the left leg. There is soft tissue swelling from the foot to the mid thigh. Distal pulses are intact. There is no tenderness throughout the entire extremity. Normal range of motion at the knee. No fever. No chest pain or dyspnea. Ultrasound performed, negative for DVT but does show a fluid collection in the mid anterior thigh 9 cm x 2.5 cm. This area does not show any external skin changes or tenderness. There is some mild warmth throughout the extremity. I did discuss case with orthopedics Dr. Prince who had spoke with the patient prior to arrival. Patient has an appointment with orthopedics on Wednesday for MRI. [facility] for close follow-up. Disposition Clinical Impression: Hematoma Disposition: HOME SELF-CARE Instructions (If sedation given, give patient instructions): Hematoma (ED) Additional Instructions: Please return the emergency department with worsening swelling, fever. Please follow up with orthopedics on Wednesday either Dr. Ayala or Dr. Prince Is patient prescribed a controlled substance at d/c from ED?: No Referrals: None,Stated [REFERRING] - 1-2 days Anthony Ayala MD [STAFF PHYSICIAN] - 1-2 days Sam Prince MD [Medical Doctor] - 1-2 days Time of Disposition: 20:33
--- NOTE | 2021-10-24 20:01 | US ---
EXAMINATION TYPE: US venous doppler duplex LE LT DATE OF EXAM: 10/24/2021 7:16 PM COMPARISON: NONE CLINICAL HISTORY: swelling. Swelling. No hx of DVT. Patient on eliquis. SIDE PERFORMED: Left TECHNIQUE: The lower extremity deep venous system is examined utilizing real time linear array sonog jr with graded compression, doppler sonography and color-flow sonography. VESSELS IMAGED: Common Femoral Vein: Deep Femoral Vein: Greater Saphenous Vein *: Femoral Vein: Popliteal Vein: Small Saphenous Vein * Proximal Calf Veins (* superficial vessels) Left Leg: No evidence of DVT in veins imaged. Limited visibility of prox calf veins. Complex fluid c ollection seen in the left anterior-medial walters just below the knee: 9.3 x 3.2 x 2.5 cm. Mild subcuta neous edema. IMPRESSION: 1. No evidence for deep vein thrombosis of the left lower extremity. 2. Complex fluid collection in the left anteromedial midshin, possibly representing a hematoma versus developing phlegmon.
== END 2021-10-24 20:37 | disposition home or self-care (01) ==
LOC: EC 18:55
DX: S90.32XA Contusion of left foot, initial encounter (principal); I48.91 Unspecified atrial fibrillation; J45.909 Unspecified asthma, uncomplicated; I25.10 Atherosclerotic heart disease of native coronary artery without angina pectoris; I11.0 Hypertensive heart disease with heart failure; E78.5 Hyperlipidemia, unspecified; I50.9 Heart failure, unspecified; Z91.018 Allergy to other foods; Z79.51 Long term (current) use of inhaled steroids; Z79.899 Other long term (current) drug therapy; W19.XXXA Unspecified fall, initial encounter
CPT/HCPCS: 99283

== ENCOUNTER 2022-01-18 04:33 | Emergency (ER) | payer MEDICARE, MEDICAID ==
--- NOTE | 2022-01-18 04:36 | ED ---
Fall HPI - General Stated Complaint: fall Time Seen by Provider: 01/18/22 04:36 Source: RN notes reviewed, old records reviewed Mode of arrival: EMS Limitations: no limitations - History of Present Illness Initial Comments: This is an 81-year-old male to the emergency department for evaluation patient presents by EMS for evaluation of fall fall from standing. Patient got up to the bathroom tonight and fell fall twice hitting his head both times. Patient did not pass out but is having significant bleeding from a laceration on his had a cut on his head. Patient is on blood thinners for atrial fibrillation. No other complaints does admit to feeling little weak and dizzy when he got up with that he felt good throughout the course of the day MD Complaint: fall -: hour(s) Fall From: standing When Fall Occurred: 1 hour [employer] Fall Witnessed: yes, by family Place Fall Occurred: home Loss of Consciousness: none Prolonged Down Time?: no Symptoms Prior to Fall: none Location: head Severity: moderate Severity scale (1-10): 5 Quality: burning Context: tripped/slipped Associated Symptoms: denies - Related Data Home Medications Medication Instructions Recorded Confirmed Montelukast Sodium [Singulair] 10 mg PO HS 01/16/19 01/11/21 lisinopriL 20 mg PO BID 01/16/19 01/11/21 Furosemide [Lasix] 20 mg PO DAILY 11/17/19 01/11/21 Metoprolol Tartrate 25 mg PO DAILY 11/17/19 01/11/21 Tamsulosin [Flomax] 0.4 mg PO DAILY 11/17/19 01/11/21 hydrALAZINE HCL 25 mg PO BID 11/17/19 01/11/21 hydroCHLOROthiazide 25 mg PO DAILY 11/17/19 01/11/21 Amiodarone [Cordarone] 200 mg PO DAILY 01/16/20 01/11/21 Previous Rx's Medication Instructions Recorded Apixaban [Eliquis] 5 mg PO BID #30 tab 12/17/18 Atorvastatin [Lipitor] 20 mg PO HS tab 12/17/18 Allergies Allergy/AdvReac Type Severity Reaction Status Date / Time avocado Allergy Itching in Verified 01/18/22 04:44 throat Review of Systems ROS Statement: Those systems with pertinent positive or pertinent negative responses have been documented in the HPI. ROS Other: All systems not noted in ROS Statement are negative. Past Medical History Past Medical History: Atrial Fibrillation, Atrial Flutter, Asthma, Coronary Artery Disease (CAD), Cancer, Heart Failure, Hearing Disorder / Deafness, Hyperlipidemia, Hypertension, Prostate Disorder Additional Past Medical History / Comment(s): Hx basal cell, squamous cell lesions. Thoracic aortic aneurysm. Hearing aids. BPH. History of Any Multi-Drug Resistant Organisms: None Reported Past Surgical History: Appendectomy, Heart Catheterization, Hernia Repair Additional Past Surgical History / Comment(s): Bilat Cataracts, Cardioversion x2 - last 08/2020, LIP LESION REMOVED Past Anesthesia/Blood Transfusion Reactions: No Reported Reaction Additional Past Anesthesia/Blood Transfusion Reaction / Comment(s): no blood transfusions Past Psychological History: No Psychological Hx Reported Smoking Status: Never smoker Past Alcohol Use History: Daily Past Drug Use History: None Reported - Past Family History Mother Family Medical History: No Reported History General Exam General appearance: alert, in no apparent distress Head exam: Present: normocephalic, normal inspection. Absent: atraumatic (r parietal scalp laceration) Eye exam: Present: normal appearance, PERRL, EOMI. Absent: scleral icterus, conjunctival injection, periorbital swelling ENT exam: Present: normal exam, mucous membranes moist Neck exam: Present: normal inspection. Absent: tenderness, meningismus, lymphadenopathy Respiratory exam: Present: normal lung sounds bilaterally. Absent: respiratory distress, wheezes, rales, rhonchi, stridor Cardiovascular Exam: Present: regular rate, normal rhythm, normal heart sounds. Absent: systolic murmur, diastolic murmur, rubs, gallop, clicks GI/Abdominal exam: Present: soft, normal bowel sounds. Absent: distended, tenderness, guarding, rebound, rigid Extremities exam: Present: normal inspection, full ROM, normal capillary refill. Absent: tenderness, pedal edema, joint swelling, calf tenderness Back exam: Present: normal inspection Neurological exam: Present: alert, oriented X3, CN II-XII intact Psychiatric exam: Present: normal affect, normal mood Skin exam: Present: warm, dry, intact, normal color. Absent: rash Course Vital Signs 01/18/22 01/18/22 04:41 06:37 Temperature 98.1 F Pulse Rate 70 71 Respiratory 18 15 Rate Blood Pressure 123/78 140/71 O2 Sat by Pulse 96 98 Oximetry - Reevaluation(s) Reevaluation #1: 01/18/22 Medical records reviewed Reevaluation #2: 01/18/22 Patient is in no distress able to ambulate here in the ER Reevaluation #3: 01/18/22 Results and questions are answered Procedures - Laceration Laceration #1 Consent Obtained: verbal consent Indication: laceration Site: scalp Size (cm): 3 Description: linear Depth: simple, single layer Type of Sutures: other (lilia) Size of Sutures: other (lilia) Technique: simple, interrupted Patient Tolerated Procedure: well Medical Decision Making - Medical Decision Making 81 male to the emergency department for evaluation patient has fall with laceration to right parietal scalp area. Laceration is repaired here in the ER with lilia no injuries noted, patient feeling better with some hydration can be discharged home - Lab Data Result diagrams: 01/18/22 04:56 01/18/22 04:56 Lab Results 01/18/22 01/18/22 01/18/22 Range/Units 04:56 04:56 04:56 WBC 7.4 (3.8-10.6) k/uL RBC 3.85 L (4.30-5.90) m/uL Hgb 12.9 L (13.0-17.5) gm/dL Hct 38.1 L (39.0-53.0) % MCV 99.0 (80.0-100.0) fL MCH 33.5 (25.0-35.0) pg MCHC 33.8 (31.0-37.0) g/dL RDW 13.5 (11.5-15.5) % Plt Count 204 (150-450) k/uL MPV 9.5 Neutrophils % 82 % Lymphocytes % 7 % Monocytes % 8 % Eosinophils % 1 % Basophils % 0 % Neutrophils # 6.1 (1.3-7.7) k/uL Lymphocytes # 0.6 L (1.0-4.8) k/uL Monocytes # 0.6 (0-1.0) k/uL Eosinophils # 0.1 (0-0.7) k/uL Basophils # 0.0 (0-0.2) k/uL Sodium 142 (137-145) mmol/L Potassium 4.4 (3.5-5.1) mmol/L Chloride 107 (98-107) mmol/L Carbon Dioxide 25 (22-30) mmol/L Anion Gap 10 mmol/L BUN 41 H (9-20) mg/dL Creatinine 1.71 H (0.66-1.25) mg/dL Est GFR (CKD-EPI)AfAm 42 (>60 ml/min/1.73 sqM) Est GFR (CKD-EPI)NonAf 36 (>60 ml/min/1.73 sqM) Glucose 105 H (74-99) mg/dL Calcium 9.5 (8.4-10.2) mg/dL Phosphorus 3.2 (2.5-4.5) mg/dL Magnesium 2.0 (1.6-2.3) mg/dL Total Bilirubin 0.7 (0.2-1.3) mg/dL AST 27 (17-59) U/L ALT 19 (4-49) U/L Alkaline Phosphatase 90 (38-126) U/L NT-Pro-B Natriuret Pep 1220 pg/mL Total Protein 6.8 (6.3-8.2) g/dL Albumin 4.3 (3.5-5.0) g/dL TSH 2.810 (0.465-4.680) mIU/L - Radiology Data Radiology results: report reviewed (CT brain cspine facial bones negative for acute traumatic disease), image reviewed Disposition Clinical Impression: Fall, Coagulopathy, Laceration of scalp Narrative: Left Parietal Scalp Laceration Disposition: HOME SELF-CARE Condition: Good Instructions (If sedation given, give patient instructions): Fall Prevention for Older Adults (ED), Staple Care (ED) Is patient prescribed a controlled substance at d/c from ED?: No Referrals: None,Stated [REFERRING] - 1-2 days Time of Disposition: 05:40
[2022-01-18 04:44] VITALS: TEMP 98.1
[2022-01-18] MEDS ORDERED: SODIUM CHLORIDE 0.9% 1,000 ML IV STA (04:47)
[2022-01-18 05:03] LABS: Basophils % (A) 0 %; Eosinophils # (A) 0.1 k/uL (0-0.7); Eosinophils % (A) 1 %; HCT 38.1 % (39.0-53.0); HGB 12.9 gm/dL (13.0-17.5); Lymphocytes # (A) 0.6 k/uL (1.0-4.8); Lymphocytes % (A) 7 %; MCH 33.5 pg (25.0-35.0); MCHC 33.8 g/dL (31.0-37.0); Mean Platelet Volume 9.5; Monocytes # (A) 0.6 k/uL (0-1.0); Monocytes % (A) 8 %; Neutrophils # (A) 6.1 k/uL (1.3-7.7); Neutrophils % (A) 82 %; Platelet Count 204 k/uL (150-450); RBC 3.85 m/uL (4.30-5.90); RDW 13.5 % (11.5-15.5); WBC 7.4 k/uL (3.8-10.6)
[2022-01-18 05:13] LABS: Albumin 4.3 g/dL (3.5-5.0); Calcium 9.5 mg/dL (8.4-10.2); Phosphorus 3.2 mg/dL (2.5-4.5); Potassium 4.4 mmol/L (3.5-5.1); Total Bilirubin 0.7 mg/dL (0.2-1.3); Total Protein 6.8 g/dL (6.3-8.2)
--- NOTE | 2022-01-18 05:30 | CT ---
EXAMINATION TYPE: CT facial bones wo con DATE OF EXAM: 01/18/2022 COMPARISON: None HISTORY: fall CT DLP: 1230.6 mGycm Automated exposure control for dose reduction was used. Images obtained from the bottom of the mandible to the top of the frontal sinuses with no contrast. The mandibular ring is intact. The temporomandibular joints are intact. There is normal aeration of t he mastoid sinuses. The maxilla is intact. Zygomatic arches appear normal. Nasal bone is intact. There is no evidence of orbital blowout fracture. Orbital margins appear intact. There is no evidence of retro-orbital mass. There is fairly normal aeration of the paranasal sinuses. There is cerebral cortical atrophy. IMPRESSION: No evidence of acute traumatic injury of the facial bones. Cerebral atrophy.
--- NOTE | 2022-01-18 05:41 | CT ---
EXAMINATION TYPE: CT brain lori wo con DATE OF EXAM: 01/18/2022 COMPARISON: CT brain 11/29/2015 HISTORY: fall CT DLP: 1230.6 mGycm Automated exposure control for dose reduction was used. Images of the brain and cervical spine obtained with no contrast. There is cerebral cortical atrophy. There is no mass effect or midline shift. No sign of intracranial hemorrhage. There is hypodensity in the periventricular white matter. The calvarium is intact. The cervical vertebra show mild straightening. There is degenerative disc space narrowing from C3 to C7 with spurring of the endplates. There is mild vacuum disc. There is mild cervical hypertrophic fac et arthropathy. No compression fracture. No subluxation. IMPRESSION: Cerebral atrophy and chronic small vessel ischemia. No acute intracranial abnormality. No significant change in the brain compared to old exam. Cervical spondylotic changes. No fracture.
[2022-01-18] MEDS ORDERED: GELATIN SPONGE,ABSORB (LARGE) 1 EACH SPONGE TOPICAL STA (06:03)
[2022-01-18 06:38] VITALS: BP 140/71; PULSE 71; RESP 15
== END 2022-01-18 06:37 | disposition home or self-care (01) ==
LOC: EC 04:33
DX: S01.01XA Laceration without foreign body of scalp, initial encounter (principal); D68.9 Coagulation defect, unspecified; I48.91 Unspecified atrial fibrillation; J45.909 Unspecified asthma, uncomplicated; I25.10 Atherosclerotic heart disease of native coronary artery without angina pectoris; E78.5 Hyperlipidemia, unspecified; I11.0 Hypertensive heart disease with heart failure; I50.9 Heart failure, unspecified; Z91.018 Allergy to other foods; Z79.01 Long term (current) use of anticoagulants; Z79.899 Other long term (current) drug therapy; W01.198A Fall on same level from slipping, tripping and stumbling with subsequent striking against other object, initial encounter
CPT/HCPCS: 12002; 12013; 36415; 70450; 70486; 72125; 80053; 83735; 83880; 84100; 84443; 85025; 96360; 99284

== ENCOUNTER 2022-01-20 12:56 | Observation (INO) | payer MEDICARE, MEDICAID ==
[2022-01-20 13:55] LABS: Albumin 3.9 g/dL (3.5-5.0); Basophils % (A) 0 %; Calcium 9.2 mg/dL (8.4-10.2); Eosinophils # (A) 0.1 k/uL (0-0.7); Eosinophils % (A) 1 %; HCT 34.5 % (39.0-53.0); HGB 11.5 gm/dL (13.0-17.5); Lymphocytes # (A) 0.6 k/uL (1.0-4.8); Lymphocytes % (A) 10 %; MCH 33.1 pg (25.0-35.0); MCHC 33.4 g/dL (31.0-37.0); MCV 99.1 fL (80.0-100.0); Mean Platelet Volume 9.4; Monocytes # (A) 0.5 k/uL (0-1.0); Monocytes % (A) 8 %; Neutrophils # (A) 4.9 k/uL (1.3-7.7); Neutrophils % (A) 78 %; Platelet Count 189 k/uL (150-450); Potassium 3.8 mmol/L (3.5-5.1); RBC 3.49 m/uL (4.30-5.90); RDW 13.6 % (11.5-15.5); Total Bilirubin 0.7 mg/dL (0.2-1.3); Total Protein 6.2 g/dL (6.3-8.2); WBC 6.3 k/uL (3.8-10.6)
[2022-01-20 13:59] LABS: INR 0.9 (<1.2)
--- NOTE | 2022-01-20 14:53 | ED ---
General Adult HPI - General Source: patient, RN notes reviewed Mode of arrival: wheelchair Limitations: no limitations <Bello Moya - Last Filed: 01/20/22 14:53> <Neil Russell - Last Filed: 01/20/22 18:55> - General Chief complaint: Weakness Stated complaint: weakness Time Seen by Provider: 01/20/22 14:38 - History of Present Illness Initial comments: This an 81-year-old male presents emergency department for evaluation of generalized weakness. Patient states he was seen a few days ago for fall, head injury in which he had CT was negative. States that he is on all questions and CT was performed. 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 He denies any chest pain denies any shortness of breath denies fevers chills palpitations. Patient states does have underlying kidney disease and some ARTHRITIS. Patient states he denies any fevers chills cough or cold like symptoms he states he is concerned about his hemoglobin as he wants a significant amount of blood during his fall. (Bello Moya) - Related Data Home Medications Medication Instructions Recorded Confirmed Montelukast Sodium [Singulair] 10 mg PO HS 01/16/19 01/11/21 lisinopriL 20 mg PO BID 01/16/19 01/11/21 Furosemide [Lasix] 20 mg PO DAILY 11/17/19 01/11/21 Metoprolol Tartrate 25 mg PO DAILY 11/17/19 01/11/21 Tamsulosin [Flomax] 0.4 mg PO DAILY 11/17/19 01/11/21 hydrALAZINE HCL 25 mg PO BID 11/17/19 01/11/21 hydroCHLOROthiazide 25 mg PO DAILY 11/17/19 01/11/21 Amiodarone [Cordarone] 200 mg PO DAILY 01/16/20 01/11/21 Previous Rx's Medication Instructions Recorded Apixaban [Eliquis] 5 mg PO BID #30 tab 12/17/18 Atorvastatin [Lipitor] 20 mg PO HS tab 12/17/18 Allergies Allergy/AdvReac Type Severity Reaction Status Date / Time avocado Allergy Itching in Verified 01/20/22 13:14 throat Review of Systems ROS Other: All systems not noted in ROS Statement are negative. <Bello Moya - Last Filed: 01/20/22 14:53> ROS Other: All systems not noted in ROS Statement are negative. <Neil Russell - Last Filed: 01/20/22 18:55> ROS Statement: Those systems with pertinent positive or pertinent negative responses have been documented in the HPI. Past Medical History Past Medical History: Atrial Fibrillation, Atrial Flutter, Asthma, Coronary Artery Disease (CAD), Cancer, Heart Failure, Hearing Disorder / Deafness, Hyperlipidemia, Hypertension, Prostate Disorder Additional Past Medical History / Comment(s): Hx basal cell, squamous cell lesions. Thoracic aortic aneurysm. Hearing aids. BPH. History of Any Multi-Drug Resistant Organisms: None Reported Past Surgical History: Appendectomy, Heart Catheterization, Hernia Repair Additional Past Surgical History / Comment(s): Bilat Cataracts, Cardioversion x2 - last 08/2020, LIP LESION REMOVED Past Anesthesia/Blood Transfusion Reactions: No Reported Reaction Additional Past Anesthesia/Blood Transfusion Reaction / Comment(s): no blood transfusions Past Psychological History: No Psychological Hx Reported Smoking Status: Never smoker Past Alcohol Use History: Daily Past Drug Use History: None Reported - Past Family History Mother Family Medical History: No Reported History <Bello Moya - Last Filed: 01/20/22 14:53> General Exam Limitations: no limitations General appearance: alert, in no apparent distress Head exam: Present: atraumatic, normocephalic, normal inspection Eye exam: Present: normal appearance, PERRL, EOMI. Absent: scleral icterus, conjunctival injection, periorbital swelling ENT exam: Present: normal exam, normal oropharynx, mucous membranes moist Neck exam: Present: normal inspection, full ROM. Absent: tenderness, meningismus, lymphadenopathy Cardiovascular Exam: Present: regular rate, normal rhythm, normal heart sounds. Absent: systolic murmur, diastolic murmur, rubs, gallop, clicks GI/Abdominal exam: Present: soft, normal bowel sounds. Absent: distended, tenderness, guarding, rebound, rigid Neurological exam: Present: alert, oriented X3, CN II-XII intact, reflexes normal. Absent: motor sensory deficit Skin exam: Present: warm, dry, intact, normal color. Absent: rash <Bello Moya - Last Filed: 01/20/22 14:53> Course Vital Signs 01/20/22 01/20/22 01/20/22 13:11 16:00 16:14 Temperature 98.2 F Pulse Rate 128 H 67 74 Respiratory 18 16 16 Rate Blood Pressure 106/59 138/77 154/94 O2 Sat by Pulse 96 97 97 Oximetry EKG Findings - EKG Comments: EKG Findings:: EKG performed at 13:26 sinus rhythm rate of 65, MN 184 QRS 103 QT/ QTC 412/423 this was interpreted by me. <Bello Moya - Last Filed: 01/20/22 14:53> Medical Decision Making - Lab Data Result diagrams: 01/20/22 13:32 01/20/22 13:32 <Bello Moya - Last Filed: 01/20/22 14:53> - Lab Data Result diagrams: 01/20/22 13:32 01/20/22 13:32 <eNil Russell - Last Filed: 01/20/22 18:55> - Medical Decision Making Patient reevaluated by myself, Dr. Russell. Patient resting comfortably at bedside. Patient states last several days he has had some weakness of his legs and falling or near falling. Patient is agreeable for admission with neurology evaluation. I did discuss the case with neurology, Dr. Ramos who will evaluate patient tomorrow. I did also speak with Dr. Rosado, who will admit covering for hospital call. Patient updated. (Neil Russell) - Lab Data Lab Results 01/20/22 01/20/22 01/20/22 Range/Units 13:32 13:32 13:32 WBC 6.3 (3.8-10.6) k/uL RBC 3.49 L (4.30-5.90) m/uL Hgb 11.5 L (13.0-17.5) gm/dL Hct 34.5 L (39.0-53.0) % MCV 99.1 (80.0-100.0) fL MCH 33.1 (25.0-35.0) pg MCHC 33.4 (31.0-37.0) g/dL RDW 13.6 (11.5-15.5) % Plt Count 189 (150-450) k/uL MPV 9.4 Neutrophils % 78 % Lymphocytes % 10 % Monocytes % 8 % Eosinophils % 1 % Basophils % 0 % Neutrophils # 4.9 (1.3-7.7) k/uL Lymphocytes # 0.6 L (1.0-4.8) k/uL Monocytes # 0.5 (0-1.0) k/uL Eosinophils # 0.1 (0-0.7) k/uL Basophils # 0.0 (0-0.2) k/uL PT 10.0 (9.0-12.0) sec INR 0.9 (<1.2) APTT 23.0 (22.0-30.0) sec Sodium 143 (137-145) mmol/L Potassium 3.8 (3.5-5.1) mmol/L Chloride 110 H (98-107) mmol/L Carbon Dioxide 26 (22-30) mmol/L Anion Gap 7 mmol/L BUN 39 H (9-20) mg/dL Creatinine 1.63 H (0.66-1.25) mg/dL Est GFR (CKD-EPI)AfAm 44 (>60 ml/min/1.73 sqM) Est GFR (CKD-EPI)NonAf 38 (>60 ml/min/1.73 sqM) Glucose 102 H (74-99) mg/dL Calcium 9.2 (8.4-10.2) mg/dL Total Bilirubin 0.7 (0.2-1.3) mg/dL AST 41 (17-59) U/L ALT 23 (4-49) U/L Alkaline Phosphatase 69 (38-126) U/L Troponin I (0.000-0.034) ng/mL Total Protein 6.2 L (6.3-8.2) g/dL Albumin 3.9 (3.5-5.0) g/dL 01/20/22 01/20/22 Range/Units 13:32 16:24 WBC (3.8-10.6) k/uL RBC (4.30-5.90) m/uL Hgb (13.0-17.5) gm/dL Hct (39.0-53.0) % MCV (80.0-100.0) fL MCH (25.0-35.0) pg MCHC (31.0-37.0) g/dL RDW (11.5-15.5) % Plt Count (150-450) k/uL MPV Neutrophils % % Lymphocytes % % Monocytes % % Eosinophils % % Basophils % % Neutrophils # (1.3-7.7) k/uL Lymphocytes # (1.0-4.8) k/uL Monocytes # (0-1.0) k/uL Eosinophils # (0-0.7) k/uL Basophils # (0-0.2) k/uL PT (9.0-12.0) sec INR (<1.2) APTT (22.0-30.0) sec Sodium (137-145) mmol/L Potassium (3.5-5.1) mmol/L Chloride (98-107) mmol/L Carbon Dioxide (22-30) mmol/L Anion Gap mmol/L BUN (9-20) mg/dL Creatinine (0.66-1.25) mg/dL Est GFR (CKD-EPI)AfAm (>60 ml/min/1.73 sqM) Est GFR (CKD-EPI)NonAf (>60 ml/min/1.73 sqM) Glucose (74-99) mg/dL Calcium (8.4-10.2) mg/dL Total Bilirubin (0.2-1.3) mg/dL AST (17-59) U/L ALT (4-49) U/L Alkaline Phosphatase (38-126) U/L Troponin I 0.064 H* 0.053 H* (0.000-0.034) ng/mL Total Protein (6.3-8.2) g/dL Albumin (3.5-5.0) g/dL Disposition <Bello Moya - Last Filed: 01/20/22 14:53> Is patient prescribed a controlled substance at d/c from ED?: No Time of Disposition: 18:55 <Neil Russell - Last Filed: 01/20/22 18:55> Clinical Impression: Near syncope Disposition: ADMITTED IP TO THIS HOSP Referrals: Domenic Corado DO [Primary Care Provider] - 1-2 days
[2022-01-20] MEDS ORDERED: SODIUM CHLORIDE 0.9% 1,000 ML IV STA (18:15)
[2022-01-20] MEDS ORDERED: NALOXONE 0.4 MG/ML 1 ML VIAL IV PRN (18:55)
[2022-01-20] MEDS ORDERED: ACETAMINOPHEN TAB 325 MG TAB PO PRN (18:55)
[2022-01-20] MEDS: SODIUM CHLORIDE 0.9% 1,000 ML IV SCH (20:47)
[2022-01-20] MEDS ORDERED: FUROSEMIDE 20 MG TAB PO PRN (22:23)
[2022-01-20] MEDS ORDERED: amLODIPine 2.5 MG TAB PO SCH (22:30)
[2022-01-20] MEDS ORDERED: MONTELUKAST 10 MG TAB PO SCH (22:30)
[2022-01-20] MEDS ORDERED: APIXABAN 5 MG TAB PO SCH (22:30)
[2022-01-20] MEDS ORDERED: ATORVASTATIN 20 MG TAB PO SCH (22:30)
[2022-01-20] MEDS ORDERED: AMIODARONE 200 MG TAB PO SCH (22:30)
[2022-01-20] MEDS: lisinopriL 20 MG TAB PO SCH (22:37)
[2022-01-20] MEDS: METOPROLOL TARTRATE 25 MG TAB PO SCH (22:37)
--- NOTE | 2022-01-21 01:41 | P.HPIM ---
History of Present Illness H&P Date: 01/20/22 The patient is an 81-year-old male with a PMH of A. frieda on Eliquis, hypertension, hyperlipidemia, systolic CHF who presents to the emergency room for generalized weakness. The patient reports that 2 days ago, he experienced a fall at home. Reports that he had gotten up in the middle of the night to use the bathroom and had not been using his walker as he usually does, and had entered the bathroom and the next thing he knew he was on the ground. He does not recall if he lost consciousness or if he simply lost his balance and fell. He did report striking his forehead on the ground and experiencing bleeding from the site. He was seen in the emergency room at that time in which time a CT brain and cervical spine as well as CT face were unremarkable. He reports that earlier today, as he woke up and tried to use his walker, he felt extremely weak in his legs and subsequently sat back down. He reports that this is unusual for him, he became alarmed and decided to come to the emergency room. He denied experiencing chest discomfort, shortness of breath, palpitations, nausea, vomiting, diaphoresis. Denied focal weakness or speech impairment. Denied visual changes. EKG the emergency room revealed sinus rhythm at [address]/T-wave changes noted as reviewed by me. Laboratory evaluation was remarkable for troponin 0.064 (similar to baseline of 0.05), creatinine 1.63 (at baseline). 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 Review of systems: Pertinent positives and negatives as discussed in HPI, a complete review of systems was performed and all other systems are negative. Physical examination: General: non toxic, no distress, appears at stated age, normal weight Derm: no unusual rashes/lesions, warm Head: atraumatic, normocephalic, symmetric Eyes: EOMI, no lid lag, anicteric sclera, pupils equal round reactive to light ENT: Nose and ears atraumatic Neck: No cervical lymphadenopathy, trachea midline, supple Mouth: no lip lesion, mucus membranes moist Cardiovascular: S1S2 reg, no murmur, positive dorsalis pedis pulse bilateral, no edema Lungs: CTA bilateral, no rhonchi, no rales, no accessory muscle use Abdominal: soft, nontender to palpation, no guarding Ext: muscle strength 4 out of 5 in all 4 extremities grossly, no gross muscle atrophy, no contractures, Neuro: CN II-XI grossly intact, no gross focal neuro deficits Psych: Alert, oriented, appropriate affect Assessment/plan Lower extremity weakness with fall, possible syncope -PT consult -Fall precautions -Echocardiogram -Cardiac monitoring -Neurology consulted Chronic conditions: A. fib, hypertension, hyperlipidemia, CHF -Patient reports that his Elkus is currently on hold for a planned elective or thopedic procedure -Continue home meds DVT prophylaxis -Heparin subq The patient is admitted with an anticipated less than 2 midnight stay for evaluation of weakness CODE STATUS: Full Code Discussed with: Patient Anticipated discharge date: in am Anticipated discharge place: Home Past Medical History Past Medical History: Atrial Fibrillation, Atrial Flutter, Asthma, Coronary Artery Disease (CAD), Cancer, Heart Failure, Hearing Disorder / Deafness, Hyper lipidemia, Hypertension, Prostate Disorder Additional Past Medical History / Comment(s): Hx basal cell, squamous cell lesions. Thoracic aortic aneurysm. Hearing aids. BPH. History of Any Multi-Drug Resistant Organisms: None Reported Past Surgical History: Appendectomy, Heart Catheterization, Hernia Repair Additional Past Surgical History / Comment(s): Bilat Cataracts, Cardioversion x2 - last 08/2020, LIP LESION REMOVED Past Anesthesia/Blood Transfusion Reactions: No Reported Reaction Additional Past Anesthesia/Blood Transfusion Reaction / Comment(s): no blood transfusions Past Psychological History: No Psychological Hx Reported Smoking Status: Never smoker Past Alcohol Use History: Daily Additional Past Alcohol Use History / Comment(s): Alcohol, 1-2 DRINKS DAILY Past Drug Use History: None Reported - Past Family History Mother Family Medical History: No Reported History Medications and Allergies Home Medications Medication Instructions Recorded Confirmed Type Atorvastatin [Lipitor] 20 mg PO HS tab 12/17/18 01/20/22 Rx Montelukast Sodium [Singulair] 10 mg PO HS 01/16/19 01/20/22 History lisinopriL 20 mg PO BID 01/16/19 01/20/22 History Furosemide [Lasix] 20 mg PO DAILY PRN 11/17/19 01/20/22 History Metoprolol Tartrate 25 mg PO BID 11/17/19 01/20/22 History Tamsulosin [Flomax] 0.4 mg PO DAILY 11/17/19 01/20/22 History hydroCHLOROthiazide 25 mg PO DAILY 11/17/19 01/20/22 History Amiodarone [Cordarone] 200 mg PO Q48H 01/16/20 01/20/22 History Apixaban [Eliquis] 5 mg PO DIRECTED 01/20/22 01/20/22 History amLODIPine [Norvasc] 2.5 mg PO HS 01/20/22 01/20/22 History Allergies Allergy/AdvReac Type Severity Reaction Status Date / Time avocado Allergy Itching in Verified 01/20/22 20:30 throat Physical Exam Vitals: Vital Signs Temp Pulse Pulse Resp BP BP BP 01/20/22 20:50 117/61 01/20/22 20:35 98.4 F 80 20 116/71 01/20/22 19:48 89 20 139/86 01/20/22 16:14 74 16 154/94 01/20/22 16:00 67 16 138/77 01/20/22 13:11 98.2 F 128 H 18 106/59 BP BP Pulse Ox 01/20/22 20:50 110/56 139/61 01/20/22 20:35 97 01/20/22 19:48 98 01/20/22 16:14 97 01/20/22 16:00 97 01/20/22 13:11 96 Intake and Output 01/20/22 01/20/22 01/21/22 14:59 22:59 06:59 Other: # Voids 1 Weight 83.461 kg 83.461 kg Results CBC & Chem 7: 01/20/22 13:32 01/20/22 13:32 Labs: Abnormal Lab Results - Last 24 Hours (Table) 01/20/22 01/20/22 01/20/22 Range/Units 13:32 13:32 13:32 RBC 3.49 L (4.30-5.90) m/uL Hgb 11.5 L (13.0-17.5) gm/dL Hct 34.5 L (39.0-53.0) % Lymphocytes # 0.6 L (1.0-4.8) k/uL Chloride 110 H (98-107) mmol/L BUN 39 H (9-20) mg/dL Creatinine 1.63 H (0.66-1.25) mg/dL Glucose 102 H (74-99) mg/dL Troponin I 0.064 H* (0.000-0.034) ng/mL Total Protein 6.2 L (6.3-8.2) g/dL 01/20/22 Range/Units 16:24 RBC (4.30-5.90) m/uL Hgb (13.0-17.5) gm/dL Hct (39.0-53.0) % Lymphocytes # (1.0-4.8) k/uL Chloride (98-107) mmol/L BUN (9-20) mg/dL Creatinine (0.66-1.25) mg/dL Glucose (74-99) mg/dL Troponin I 0.053 H* (0.000-0.034) ng/mL Total Protein (6.3-8.2) g/dL Thrombosis Risk Factor Assmnt - Choose All That Apply Each Risk Factor Represents 3 Points: Age 75 years or older Thrombosis Risk Factor Assessment Total Risk Factor Score: 3 Thrombosis Risk Factor Assessment Level: Moderate Risk
[2022-01-21] MEDS ORDERED: HEPARIN SODIUM,PORCINE/PF 5,000 UNIT/0.5 ML SYRINGE SQ SCH (08:00)
[2022-01-21] MEDS: METOPROLOL TARTRATE 25 MG TAB PO SCH (08:01)
[2022-01-21] MEDS: lisinopriL 20 MG TAB PO SCH (08:01)
[2022-01-21 08:11] VITALS: RESP 17
[2022-01-21 08:31] LABS: Albumin 3.4 g/dL (3.5-5.0); Calcium 8.9 mg/dL (8.4-10.2); Potassium 3.6 mmol/L (3.5-5.1); Total Bilirubin 0.8 mg/dL (0.2-1.3); Total Protein 5.6 g/dL (6.3-8.2)
[2022-01-21] MEDS ORDERED: TAMSULOSIN 0.4 MG CAP.ER.24H PO SCH (09:00)
[2022-01-21] MEDS ORDERED: METOPROLOL SUCCINATE (ER) 50 MG TAB.ER.24H PO SCH (09:00)
[2022-01-21] MEDS ORDERED: hydroCHLOROthiazide 25 MG TAB PO SCH (09:00)
[2022-01-21] MEDS ORDERED: HYDROcodone/APAP 5-325MG 1 EACH TAB PO PRN (09:31)
[2022-01-21 09:35] LABS: Basophils % (A) 0 %; Eosinophils # (A) 0.1 k/uL (0-0.7); Eosinophils % (A) 3 %; HCT 31.2 % (39.0-53.0); HGB 10.4 gm/dL (13.0-17.5); Lymphocytes # (A) 0.7 k/uL (1.0-4.8); Lymphocytes % (A) 18 %; MCH 33.6 pg (25.0-35.0); MCHC 33.5 g/dL (31.0-37.0); MCV 100.2 fL (80.0-100.0); Mean Platelet Volume 8.9; Monocytes # (A) 0.4 k/uL (0-1.0); Monocytes % (A) 10 %; Neutrophils # (A) 2.7 k/uL (1.3-7.7); Neutrophils % (A) 67 %; Platelet Count 180 k/uL (150-450); RBC 3.11 m/uL (4.30-5.90); RDW 13.1 % (11.5-15.5)
[2022-01-21] MEDS: SODIUM CHLORIDE 0.9% 1,000 ML IV SCH (11:17)
--- NOTE | 2022-01-21 11:52 | P.CNNES ---
History of Present Illness Consult date: 01/21/22 Requesting physician: Neil Russell Reason for Consult: near syncope History of Present Illness: This is an 81-year-old gentleman with history of A. fib on eliquis, systolic congestive heart failure, coronary artery disease, hypertension, hyperlipidemia who presented to the emergency because of generalized weakness. Neurology is consulted for near syncope. It seems that yesterday the patient woke up and tried to use his walker but he felt extremely weak in his legs and subsequently sat back down and as a result he was concerned and asked his neighbor to bring him to the hospital. He denied any focal weakness numbness or speech difficulty. Also about 3 days ago patient fell when he got up in the middle the night to use the bathroom but he did not use a walker and when he entered the bathroom the next thing he remembered was being on the ground it does not look the recall if he lost consciousness or simply lost balance and fell. He denies any urinary bowel incontinence, tongue bite or soreness. During the prior events he struck his forehead on the ground and had some bleeding on the sites and the last time he came to the emergency and had a CT of the head and cervical spine (01/18/2022) and it was reported as cerebral atrophy and chronic small vessel ischemia. No acute intracranial abnormality. No significant change in the brain compared to old exam. Cervical spondylitic change. No fracture. Patient currently feels back to baseline. He stated that he has chronic lower back pain and was told he had sciatica and had a pain injection about 2 month ago and is in the process of getting another opinion injection. He is using a walker because of his lower back pain and left knee issue. Again he denies of any focal weakness, numbness, difficulty swallowing, visual disturbance. Regarding his back pain he stated it was in the back and would rate at radiate down proximal to the knees bilaterally. His back pain has been controlled since the pain injection. Patient denies any history of seizures. Some of the workup during this hospital visit consisted of: Orthostatic vitals is supine blood pressure is 139/61 while sitting it's 117/61 and standing is 110/56. It seems there is a drop from supine to sitting suggestive of positive orthostatic hypotension Initial serum glucose is 102, calcium is 9.2, 18 ALTs within normal limits, sodium is also within normal limits. Troponin is mainly elevated and it's 0.064 and repeat his 0.053. PT, PTT and INR is within normal limits EKG is reported as sinus rhythm. Normal EKG. Review of Systems Review of system: The 12 point system was reviewed and apparent positive and negative per HPI. Past Medical History Past Medical History: Atrial Fibrillation, Atrial Flutter, Asthma, Coronary Artery Disease (CAD), Cancer, Heart Failure, Hearing Disorder / Deafness, Hyperlipidemia, Hypertension, Prostate Disorder Additional Past Medical History / Comment(s): Hx basal cell, squamous cell lesions. Thoracic aortic aneurysm. Hearing aids. BPH. History of Any Multi-Drug Resistant Organisms: None Reported Past Surgical History: Appendectomy, Heart Catheterization, Hernia Repair Additional Past Surgical History / Comment(s): Bilat Cataracts, Cardioversion x2 - last 08/2020, LIP LESION REMOVED Past Anesthesia/Blood Transfusion Reactions: No Reported Reaction Additional Past Anesthesia/Blood Transfusion Reaction / Comment(s): no blood transfusions Past Psychological History: No Psychological Hx Reported Smoking Status: Never smoker Past Alcohol Use History: Daily Additional Past Alcohol Use History / Comment(s): Alcohol, 1-2 DRINKS DAILY Past Drug Use History: None Reported - Past Family History Mother Family Medical History: No Reported History Medications and Allergies Home Medications Medication Instructions Recorded Confirmed Type Atorvastatin [Lipitor] 20 mg PO HS tab 12/17/18 01/20/22 Rx Montelukast Sodium [Singulair] 10 mg PO HS 01/16/19 01/20/22 History lisinopriL 20 mg PO BID 01/16/19 01/20/22 History Furosemide [Lasix] 20 mg PO DAILY PRN 11/17/19 01/20/22 History Metoprolol Tartrate 25 mg PO BID 11/17/19 01/20/22 History Tamsulosin [Flomax] 0.4 mg PO DAILY 11/17/19 01/20/22 History hydroCHLOROthiazide 25 mg PO DAILY 11/17/19 01/20/22 History Amiodarone [Cordarone] 200 mg PO Q48H 01/16/20 01/20/22 History Apixaban [Eliquis] 5 mg PO DIRECTED 01/20/22 01/20/22 History amLODIPine [Norvasc] 2.5 mg PO HS 01/20/22 01/20/22 History Acetaminophen [Tylenol Extra 2 tab PO TID 01/21/22 01/21/22 History Strength] Hydrocodone/Acetaminophen 1 tab PO TID 01/21/22 01/21/22 History [Hydrocodone/Acetaminophen 5-325] Allergies Allergy/AdvReac Type Severity Reaction Status Date / Time avocado Allergy Itching in Verified 01/20/22 20:30 throat Physical Examination - Vital Signs Vital Signs: Vital Signs Temp Pulse Pulse Resp BP BP BP 01/21/22 08:00 97.9 F 63 17 133/83 01/21/22 04:40 97.8 F 67 21 143/71 01/20/22 23:00 97.3 F L 87 20 107/62 01/20/22 20:50 117/61 01/20/22 20:35 98.4 F 80 20 116/71 01/20/22 19:48 89 20 139/86 01/20/22 16:14 74 16 154/94 01/20/22 16:00 67 16 138/77 01/20/22 13:11 98.2 F 128 H 18 106/59 BP BP Pulse Ox 01/21/22 08:00 93 L 01/21/22 04:40 95 01/20/22 23:00 99 01/20/22 20:50 110/56 139/61 01/20/22 20:35 97 01/20/22 19:48 98 01/20/22 16:14 97 01/20/22 16:00 97 01/20/22 13:11 96 Intake and Output 01/20/22 01/21/22 01/21/22 22:59 06:59 14:59 Other: Voiding Method Toilet Toilet Toilet # Voids 1 1 Weight 83.461 kg 60.5 kg GENERAL: The patient is lying in bed and is not in acute distress. CHEST: The heart rate is regular rate rhythm. No murmurs to auscultation. No carotid bruit bilaterally. LUNG: Clear to auscultation bilaterally no wheezing noted throughout. Not labored breathing. ABDOMEN/GI: Bowel sounds present in all 4 quadrants. No tenderness to palpation throughout. NEUROLOGICAL: Higher mental function: The patient is awake, alert, oriented to self, place and time. Patient is following commands. No aphasia and no neglect. Cranial nerves: The pupils are round, equal and reactive to light and accommodation. Visual guadalupe are full to confrontation throughout. Extraocular movement is intact no nystagmus is noted. Facial sensation is normal to touch throughout. The facial strength is normal throughout. Hearing is normal bilat erally to hand rub. Tongue is midline and moved [id number] without any difficulty. No dysarthria is noted. Shoulder shrug is normal bilaterally. Motor: Gait: Using walker on his own without any issues and not needing any assistance or drifting legs. The strength is ankle dorsiflexion is limited because cooperation but appeared 4+ bilaterally. Otherwise 5 over 5 throughout. Some atrophy in left first dorsal interosseous. Otherwise normal tone and bulk. Cerebellum: Normal finger to nose bilaterally. Sensation: Sensation is normal to touch throughout. Reflexes (right/left): 0-1+ throughout uppers while lowers are 0 throughout.. Plantars are mute bilaterally. Results - Laboratory Findings CBC and BMP: 01/21/22 07:49 01/21/22 08:13 Abnormal Lab Findings: Abnormal Labs 01/20/22 01/20/22 01/20/22 13:32 13:32 13:32 RBC 3.49 L Hgb 11.5 L Hct 34.5 L Lymphocytes # 0.6 L Chloride 110 H BUN 39 H Creatinine 1.63 H Glucose 102 H Troponin I 0.064 H* Total Protein 6.2 L Albumin 01/20/22 01/21/22 16:24 08:13 RBC Hgb Hct Lymphocytes # Chloride 111 H BUN 35 H Creatinine Glucose Troponin I 0.053 H* Total Protein 5.6 L Albumin 3.4 L Assessment and Plan Assessment: * Orthostatic hypotension. * Generalized weakness with episode of syncopal episode on 01/18/22 likely due to above. * Transient episode of leg weakness bilaterally of unknown causes. Possibly due to above vs lumbar spondylosis vs myopathy. His reflexes are hypo to areflexic throughout which is concerning for moderate to severe spinal spondylosis vs ?demylinating polyneuropathy(but would not get fluctuation and drastic improvement) * Slightly elevated troponin * History of A. fib on eliquis * Systolic congestive heart failure * History of coronary artery disease * History of hypertension and current normotensive * Hyperlipidemia Plan: For his positive orthostatic hypotension, I spoke with primary team and she stated she stopped Diuretic. If continues to be positive orthostatic consider compression stocking. Ordered CK level, aldolase, LDH, Vitamin B12, folate, HbA1c, myoglobin. I ordered a routine EEG for his syncopal episodes to rule out any underlying discharges or active seizures which I feel unlikely. Recommend EMG with NCS of the lowers as outpatient to rule out myopathy vs demylinating polyneuropathy.Consider lumbar puncture to assess for albuminocytological dissociation as outpatient if EMG with NCS seems suggestive of it but clinically does not seem. PT and OT are consulted Continue neuro checks Patient had a recent TSH level which was normal on 01/18/2022 and he does not need to be repeated Cardiology on board. We'll defer the rest of the medical measure the primary team Recommend patient to follow-up with neurologist as outpatient Otherwise no additional work-up. Thank you for the consultation. Time with Patient: Greater than 30
--- NOTE | 2022-01-21 12:05 | P.CRDCN ---
History of Present Illness History of present illness: HISTORY OF PRESENTING ILLNESS This is a pleasant 81-year-old male past medical history significant for persistent atrial fibrillation, status post multiple cardioversions, mild nonobstructive coronary artery disease, dilatation of ascending aorta, hypertension, moderate mitral regurgitation, moderate pulmonary hypertension. He follows in the office with Dr. Guajardo. We have been asked to see in consultation for elevated troponins. Patient presents emergency department with complaints of a near-fall at home. He states initially on 01/18, he had a few martinis, he went to the bathroom without taking his walker and fell. He thinks he tripped but is not entirely sure. He fell to the ground and hit is head. He felt ok, but called 911 because he could not get up. He was discharged from the ER at that time. Wednesday he was feeling fine no complaints. Yesterday he was walking with his walker and in the morning/early afternoon he felt like his bilateral legs were about to give out. [place] slightly "whoozy". But mostly complains of bilateral leg weakness. He states this lasted for about an hour and came to the ER for further evaluation. He denies any chest pain, lightheadedness, dizzi ness, syncope. He did not fall yesterday. He denies any palpitations, nausea, vomiting, shortness of breath, symptoms of orthopnea or PND. He feels back to his baseline currently. No recent changes to his medications.Patient with slightly positive orthostatic vital signs from lying to sitting. DIAGNOSTICS * EKG reveals sinus rhythm, heart rate 65, no significant STT wave abnormalities chest ischemia.. * Telemetry tracings indicate sinus rhythm with heart rates in the 60s80s, no arrhythmia noted. * Echocardiogram 01/2021 revealed EF 55%, mild to moderate diastolic dysfunction moderate pulmonary hypertension * Cardiac catheterization 01/2020 revealed mild calcified arteries,new disease in the RCA, circumflex artery, left main but these are calcified, mid LAD has a 45% lesion, normal filling pressures no gradient, advised therapy. * Laboratory reviewed, WBC 4.0, hemoglobin 10.4, platelets 180, sodium 142, potassium 3.6, BUN 35, serum creatinine 1.2, troponin 0.06, 0.05 * Current home cardiac medications include lisinopril 20 mg twice a day, hydrochlorothiazide 25 mg daily, amlodipine 2.5 mg nightly, metoprolol titrate 10 mg nightly, furosemide 20 mg when necessary, atorvastatin 20 mg daily, Eliquis 5 mg twice a day REVIEW OF SYSTEMS At the time of my exam: CONSTITUTIONAL: Denies fever or chills. CARDIOVASCULAR: Denies chest pain, shortness of breath, orthopnea, PND or palpitations. RESPIRATORY: Denies cough. GASTROINTESTINAL: Denies abdominal pain, diarrhea, constipation, nausea or vomiting. MUSCULOSKELETAL: Denies myalgias. NEUROLOGIC: Denies numbness, tingling, headacbe or weakness. ENDOCRINE: Denies fatigue, weight change, polydipsia or polyurina. GENITOURINARY: Denies burning, hematuria or urgency with micturation. HEMATOLOGIC: Denies history of anemia or bleeding. PHYSICAL EXAMINATION Blood pressure 121/64, heart rate 54, afebrile, saturations 95% on room air CONSTITUTIONAL: No apparent distress. HEENT: Head is normocephalic. Pupils are equal, round. Sclerae anicteric. Mucous membranes of the mouth are moist. No JVD. No carotid bruit. CHEST EXAMINATION: Lungs are clear to auscultation. No chest wall tenderness is noted on palpation or with deep breathing. HEART EXAMINATION: Regular rate and rhythm. S1, S2 heard. Systolic murmur, No gallops or rub. ABDOMEN: Soft, nontender. Positive bowel sounds. EXTREMITIES: 2+ peripheral pulses, no lower extremity edema and no calf tenderness. NEUROLOGIC EXAMINATION: Patient is awake, alert and oriented x3. ASSESSMENT Bilateral leg weakness Acute kidney injury Elevated troponin, unclear etiology, possibly related to kidney disease, unlikely acute coronary syndrome, no evidence of ischemia on EKG patient without chest pain or shortness of breath Persistent atrial fibrillation, status post multiple cardioversions Mild nonobstructive coronary artery disease History of dilatation of ascending aorta Hypertension Moderate mitral regurgitation Moderate pulmonary hypertension PLAN Patient main complaint appears to be bilateral leg weakness, felt as if his legs were going to give out. Denies any syncope/loss of consciousness. Episode on 01/18 possible mechanical fall. Obtain 2D echocardiogram and doppler study to assess cardiac structure and function. Recommend continuing cardiac medications as prescribed Monitor on telemetry while inpatient If echocardiogram with no acute findings, no further inpatient workup from a cardiology perspective Follow up outpatient with Dr. Guajardo, event monitor can be discussed and done as an outpatient Nurse practitioner note has been reviewed by physician. Signing provider agrees with the documented findings, assessment, and plan of care. Past Medical History Past Medical History: Atrial Fibrillation, Atrial Flutter, Asthma, Coronary Artery Disease (CAD), Cancer, Heart Failure, Hearing Disorder / Deafness, Hyperlipidemia, Hypertension, Prostate Disorder Additional Past Medical History / Comment(s): Hx basal cell, squamous cell lesions. Thoracic aortic aneurysm. Hearing aids. BPH. History of Any Multi-Drug Resistant Organisms: None Reported Past Surgical History: Appendectomy, Heart Catheterization, Hernia Repair Additional Past Surgical History / Comment(s): Bilat Cataracts, Cardioversion x2 - last 08/2020, LIP LESION REMOVED Past Anesthesia/Blood Transfusion Reactions: No Reported Reaction Additional Past Anesthesia/Blood Transfusion Reaction / Comment(s): no blood transfusions Past Psychological History: No Psychological Hx Reported Smoking Status: Never smoker Past Alcohol Use History: Daily Additional Past Alcohol Use History / Comment(s): Alcohol, 1-2 DRINKS DAILY Past Drug Use History: None Reported - Past Family History Mother Family Medical History: No Reported History Medications and Allergies Home Medications Medication Instructions Recorded Confirmed Type Atorvastatin [Lipitor] 20 mg PO HS tab 12/17/18 01/20/22 Rx Montelukast Sodium [Singulair] 10 mg PO HS 01/16/19 01/20/22 History lisinopriL 20 mg PO BID 01/16/19 01/20/22 History Furosemide [Lasix] 20 mg PO DAILY PRN 11/17/19 01/20/22 History Metoprolol Tartrate 25 mg PO BID 11/17/19 01/20/22 History Tamsulosin [Flomax] 0.4 mg PO DAILY 11/17/19 01/20/22 History hydroCHLOROthiazide 25 mg PO DAILY 11/17/19 01/20/22 History Amiodarone [Cordarone] 200 mg PO Q48H 01/16/20 01/20/22 History Apixaban [Eliquis] 5 mg PO DIRECTED 01/20/22 01/20/22 History amLODIPine [Norvasc] 2.5 mg PO HS 01/20/22 01/20/22 History Acetaminophen [Tylenol Extra 2 tab PO TID 01/21/22 01/21/22 History Strength] Hydrocodone/Acetaminophen 1 tab PO TID 01/21/22 01/21/22 History [Hydrocodone/Acetaminophen 5-325] Allergies Allergy/AdvReac Type Severity Reaction Status Date / Time avocado Allergy Itching in Verified 01/20/22 20:30 throat Physical Exam Vitals: Vital Signs Temp Pulse Pulse Resp BP BP BP 01/21/22 08:00 97.9 F 63 17 133/83 01/21/22 04:40 97.8 F 67 21 143/71 01/20/22 23:00 97.3 F L 87 20 107/62 01/20/22 20:50 117/61 01/20/22 20:35 98.4 F 80 20 116/71 01/20/22 19:48 89 20 139/86 01/20/22 16:14 74 16 154/94 01/20/22 16:00 67 16 138/77 01/20/22 13:11 98.2 F 128 H 18 106/59 BP BP Pulse Ox 01/21/22 08:00 93 L 01/21/22 04:40 95 01/20/22 23:00 99 01/20/22 20:50 110/56 139/61 01/20/22 20:35 97 01/20/22 19:48 98 01/20/22 16:14 97 01/20/22 16:00 97 01/20/22 13:11 96 Intake and Output 01/20/22 01/21/22 01/21/22 22:59 06:59 14:59 Other: Voiding Method Toilet Toilet Toilet # Voids 1 1 Weight 83.461 kg 60.5 kg Results 01/21/22 07:49 01/21/22 08:13 Cardiac Enzymes 01/20/22 01/20/22 01/20/22 Range/Units 13:32 13:32 16:24 AST 41 (17-59) U/L Troponin I 0.064 H* 0.053 H* (0.000-0.034) ng/mL 01/21/22 Range/Units 08:13 AST 40 (17-59) U/L Troponin I (0.000-0.034) ng/mL Coagulation 01/20/22 Range/Units 13:32 PT 10.0 (9.0-12.0) sec APTT 23.0 (22.0-30.0) sec CBC 11/08/22 Range/Units 13:32 WBC 6.3 (3.8-10.6) k/uL RBC 3.49 L (4.30-5.90) m/uL Hgb 11.5 L (13.0-17.5) gm/dL Hct 34.5 L (39.0-53.0) % Plt Count 189 (150-450) k/uL Comprehensive Metabolic Panel 01/20/22 01/21/22 Range/Units 13:32 08:13 Sodium 143 142 (137-145) mmol/L Potassium 3.8 3.6 (3.5-5.1) mmol/L Chloride 110 H 111 H (98-107) mmol/L Carbon Dioxide 26 27 (22-30) mmol/L BUN 39 H 35 H (9-20) mg/dL Creatinine 1.63 H 1.20 (0.66-1.25) mg/dL Glucose 102 H 96 (74-99) mg/dL Calcium 9.2 8.9 (8.4-10.2) mg/dL AST 41 40 (17-59) U/L ALT 23 22 (4-49) U/L Alkaline Phosphatase 69 60 (38-126) U/L Total Protein 6.2 L 5.6 L (6.3-8.2) g/dL Albumin 3.9 3.4 L (3.5-5.0) g/dL Current Medications Generic Name Dose Route Start Last Admin Trade Name Freq PRN Reason Stop Dose Admin Acetaminophen 650 mg 01/20/22 18:55 01/21/22 08:16 Acetaminophen Tab 325 Mg Tab PO 650 mg Q6HR PRN Administration Mild Pain or Fever > 100.5 Hydrocodone Bitart/Acetaminophen 1 each 01/21/22 16:00 Hydrocodone/Apap 5-325mg 1 Each Tab PO TID JOSE Amiodarone HCl 200 mg 01/20/22 22:30 01/20/22 22:37 Amiodarone 200 Mg Tab PO 200 mg Q48H JOSE Administration Amlodipine Besylate 2.5 mg 01/20/22 22:30 01/20/22 22:37 Amlodipine 2.5 Mg Tab PO 2.5 mg HS JOSE Administration Atorvastatin Calcium 20 mg 01/20/22 22:30 01/20/22 22:37 Atorvastatin 20 Mg Tab PO 20 mg HS JOSE Administration Heparin Sodium (Porcine) 5,000 unit 01/21/22 08:00 01/21/22 08:06 Heparin Sodium,Porcine/Pf 5,000 Unit/0.5 Ml Syringe SQ Not Given Q8HR [facility] Sodium Chloride 1,000 mls @ 75 mls/hr 01/20/22 19:00 01/20/22 20:47 Saline 0.9% IV Not Given .[id number] JOSE Metoprolol Succinate 50 mg 01/21/22 09:00 01/21/22 08:52 Metoprolol Succinate (Er) 50 Mg Tab.Er.24h PO Not Given BID JOSE Montelukast Sodium 10 mg 01/20/22 22:30 01/20/22 22:37 Montelukast 10 Mg Tab PO 10 mg HS JOSE Administration Naloxone HCl 0.2 mg 01/20/22 18:55 Naloxone 0.4 Mg/Ml 1 Ml Vial IV Q2M PRN Opioid Reversal Tamsulosin HCl 0.4 mg 01/21/22 09:00 01/21/22 08:01 Tamsulosin 0.4 Mg Cap.Er.24h PO 0.4 mg DAILY JOSE Administration Intake and Output 01/20/22 01/21/22 01/21/22 22:59 06:59 14:59 Other: Voiding Method Toilet Toilet Toilet # Voids 1 1 Weight 83.461 kg 60.5 kg 01/20/22 13:32 01/21/22 08:13
[2022-01-21 13:22] VITALS: BMI 22.8
[2022-01-21] MEDS ORDERED: HYDROcodone/APAP 5-325MG 1 EACH TAB PO SCH (16:00)
[2022-01-21] MEDS ORDERED: LORazepam 1 MG/0.5 ML VIAL IM PRN (16:26)
--- NOTE | 2022-01-21 17:34 | P.DS ---
Providers Date of admission: 01/20/22 18:55 Attending physician: Alex Lopez MD Consults: 01/20/22 18:55 Consult Physician Routine Consulting Provider: Geronimo Corado Consult Reason/Comments: near syncope Do you want consulting provider notified?: Already Contacted 01/21/22 08:08 Consult Physician Routine Consulting Provider: Demetris Pierre Consult Reason/Comments: elevated troponin Do you want consulting provider notified?: Yes [facility] Course: Admitting diagnoses: Full Lower extremity weakness Discharge diagnoses: Bilateral leg weakness resolved Acute kidney injury improved Elevated troponin likely due to LATOYA improved Persistent atrial fibrillation, status post multiple cardioversions coronary artery disease History of dilatation of ascending aorta Hypertension Hyperlipidemia Moderate mitral regurgitation Moderate pulmonary hypertension Chronic back pain Hospital course; The patient is an 81-year-old male with a PMH of A. frieda on Eliquis, hypertension, hyperlipidemia, systolic CHF who presents to the emergency room for generalized weakness. The patient reports that 2 days ago, he experienced a fall at home. Reports that he had gotten up in the middle of the night to use the bathroom and had not been using his walker as he usually does, and had entered the bathroom and the next thing he knew he was on the ground. He does not recall if he lost consciousness or if he simply lost his balance and fell. He did report striking his forehead on the ground and experiencing bleeding from the site. He was seen in the emergency room at that time in which time a CT brain and cervical spine as well as CT face were unremarkable. He reports that earlier today, as he woke up and tried to use his walker, he felt extremely weak in his legs and subsequently sat back down. He reports that this is unusual for him, he became alarmed and decided to come to the emergency room. He denied experiencing chest discomfort, shortness of breath, palpitations, nausea, vomiting, diaphoresis. Denied focal weakness or speech impairment. Denied visual changes. EKG the emergency room revealed sinus rhythm at [address]/T-wave changes noted as reviewed by me. Laboratory evaluation was remarkable for troponin 0.064 (similar to baseline of 0.05), creatinine 1.63 (at baseline). 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 Patient had an acute kidney injury which has improved with discontinuing diuretics. Per cardiology echocardiogram was fairly normal. Cardiology and and neurological work-up was insignificant. Patient had positive orthostatics. Diuretics discontinued. Reassess medications with with landscaping manager as an outpatient. Per neurology recommend EMG with NCS of the lowers as outpatient to rule out myopathy vs demylinating polyneuropathy.Consider lumbar puncture to assess for albuminocytological dissociation as outpatient if EMG with NCS seems suggestive of it but clinically does not seem. This can be done as an outpatient. Patient cleared by cardiology and neurology for discharge. Patient is to follow- up as an outpatient. Physical exam General: [non toxic], [no distress], [appears at stated age] Derm: [warm], [dry] Head: [atraumatic], [normocephalic], [symmetric] Eyes: [EOMI], [no lid lag], [anicteric sclera] Mouth: [no lip lesion], [mucus membranes moist] Cardiovascular: [Irregular], [positive posterior tibial pulse bilateral], Lungs: [CTA bilateral], [no rhonchi, no rales] , [no accessory muscle use] Abdominal: [soft], [ nontender to palpation], [no guarding], [no appreciable organomegaly] Ext: [no gross muscle atrophy], [no edema], [no contractures] Neuro: [ CN II-XI grossly intact], [no focal neuro deficits] Psych: [Alert], [oriented], [irritable] Disposition home Activity as tolerated Diet cardiac Condition fair Follow-up with PCP within 2-7 days Follow-up with cardiology within 1 week Follow-up with neurology in 1 week Patient Condition at Discharge: Fair Plan - Discharge Summary Discharge Rx Participant: No New Discharge Prescriptions: Continue Atorvastatin [Lipitor] 20 mg PO HS tab Montelukast Sodium [Singulair] 10 mg PO HS Tamsulosin [Flomax] 0.4 mg PO DAILY Metoprolol Tartrate 25 mg PO BID Amiodarone [Cordarone] 200 mg PO Q48H Apixaban [Eliquis] 5 mg PO DIRECTED amLODIPine [Norvasc] 2.5 mg PO HS Hydrocodone/Acetaminophen [Hydrocodone/Acetaminophen 5-325] 1 tab PO TID Acetaminophen [Tylenol Extra Strength] 2 tab PO TID Discontinued lisinopriL 20 mg PO BID Furosemide [Lasix] 20 mg PO DAILY PRN PRN Reason: Edema hydroCHLOROthiazide 25 mg PO DAILY Discharge Medication List Atorvastatin [Lipitor] 20 mg PO HS tab 12/17/18 [Rx] Montelukast Sodium [Singulair] 10 mg PO HS 01/16/19 [History] Metoprolol Tartrate 25 mg PO BID 11/17/19 [History] Tamsulosin [Flomax] 0.4 mg PO DAILY 11/17/19 [History] Amiodarone [Cordarone] 200 mg PO Q48H 01/16/20 [History] Apixaban [Eliquis] 5 mg PO DIRECTED 01/20/22 [History] amLODIPine [Norvasc] 2.5 mg PO HS 01/20/22 [History] Acetaminophen [Tylenol Extra Strength] 2 tab PO TID 01/21/22 [History] Hydrocodone/Acetaminophen [Hydrocodone/Acetaminophen 5-325] 1 tab PO TID 01/21/22 [History] Follow up Appointment(s)/Referral(s): Sunil Guajardo MD [STAFF PHYSICIAN] - 1 Week Domenic Corado DO [Primary Care Provider] - 1-2 days
[2022-01-21 19:33] VITALS: BP 125/61; PULSE 62; TEMP 97.6
--- NOTE | 2022-01-21 19:38 | CA ---
Transthoracic Echo Report Name: Matt Hines Age: 81 Gender: M : 1940 Exam Date: 01/21/2022 11:31 Exam Location: [facility] Ht (in): 73 Wt (lb): 133 Ordering Physician: Antonella Tsai Attending/Referring Phys: Record Pressman Naye Healy RDCS Procedure CPT: Indications: near syncope and elevated troponin Cardiac Hx: Technical Quality: Fair Contrast 1: Total Dose (mL): Contrast 2: Total Dose (mL): MEASUREMENTS (Male / Female) Normal Values 2D ECHO LV Diastolic Diameter PLAX 4.1 cm 4.2 - 5.9 / 3.9 - 5.3 cm LV Systolic Diameter PLAX 2.1 cm IVS Diastolic Thickness 1.8 cm 0.6 - 1.0 / 0.6 - 0.9 cm LVPW Diastolic Thickness 1.8 cm 0.6 - 1.0 / 0.6 - 0.9 cm LV Relative Wall Thickness 0.9 RV Internal Dim ED PLAX 3.5 cm LA Volume 148.3 cm??? 18 - 58 / 22 - 52 cm??? M-MODE Aortic Root Diameter MM 3.6 cm LA Systolic Diameter MM 6.3 cm LA Ao Ratio MM 1.7 AV Cusp Separation MM 2.7 cm DOPPLER AV Peak Velocity 155.6 cm/s AV Peak Gradient 9.7 mmHg AV Mean Velocity 100.3 cm/s AV Mean Gradient 4.6 mmHg AV Velocity Time Integral 34.7 cm AI Peak Velocity 441.4 cm/s AI Peak Gradient 77.9 mmHg AI Pressure Half Time 966.2 ms LVOT Peak Velocity 85.1 cm/s LVOT Peak Gradient 2.9 mmHg LVOT Velocity Time Integral 21.6 cm MV Area PHT 2.6 cm??? Mitral E Point Velocity 59.4 cm/s Mitral A Point Velocity 68.0 cm/s Mitral E to A Ratio 0.9 MV Deceleration Time 296.9 ms MV E' Velocity 5.8 cm/s Mitral E to MV E' Ratio 10.3 TR Peak Velocity 319.8 cm/s TR Peak Gradient 40.9 mmHg Right Ventricular Systolic Press 44.6 mmHg FINDINGS Left Ventricle Severely increased septal wall thickness. Normal left ventricular systolic function with no obvious regional wall motion abnormalities. Left ventricular ejection fraction is estimated at 55-60 %. Right Ventricle Mild right ventricular dilatation. Mild pulmonary hypertension. Right Atrium Normal right atrial size. Left Atrium Severely increased left atrial volume. Mitral Valve Structurally normal mitral valve. Mitral valve thickened. Moderate mitral annular calcification. Moderate mitral regurgitation. Aortic Valve No aortic stenosis. Mild aortic regurgitation. Tricuspid Valve Structurally normal tricuspid valve. [id number] tricuspid regurgitation. Pulmonic Valve Trace pulmonic regurgitation. Pericardium No pericardial effusion. Aorta Normal size aortic root and proximal ascending aorta. CONCLUSIONS Normal left ventricular dimension and systolic function Moderate mitral regurgitation Previewed by: Dr. Demetris Pierre MD (Electronically Signed) Final Date: 21 January 2022 19:37
[2022-01-21] MEDS ORDERED: APIXABAN 5 MG TAB PO SCH (21:00)
[2022-01-21] MEDS ORDERED: METOPROLOL TARTRATE 25 MG TAB PO SCH (21:00)
--- NOTE | 2022-01-21 22:40 | EEG ---
ELECTROENCEPHALOGRAM REPORT CLINICAL HISTORY: This is an 81-year-old gentleman with syncopal episode at home. The video EEG is obtained to evaluate for seizure epileptiform activity. RELEVANT MEDICATIONS: The patient is not on any antiepileptic drugs. EEG TYPE: A routine 21-channel EEG is performed with video using the 10/20 electrode placement system. DESCRIPTION: Wakefulness is only obtained. During awake state, the posterior-dominant rhythm consists of [id number] voltage of 9.5 to 10 hertz activity that is well modulated, well sustained. There is no physiological stage 2 sleep architecture. There is no focal slowing. Interictal and ictal is none. ACTIVATION PROCEDURE: Photic stimulation did not evoke a posterior driving response. There is no abnormality during the photic stimulation. Hyperventilation is not performed. CLINICAL INTERPRETATION: This is a normal routine EEG. There is no focal slowing, epileptiform discharges, or seizure on the EEG. A normal routine EEG does not exclude underlying epilepsy. Clinical correlation is recommended. MAGUE / MARCELINA: [id number] / MTDD
== END 2022-01-21 17:46 | disposition home health service (06) ==
LOC: EC 12:56 → 3SCARD 18:55
PROVIDERS: ADMIT Family Medicine; ATTEND Family Medicine
DX: I95.1 Orthostatic hypotension (principal); R53.1 Weakness; M19.90 Unspecified osteoarthritis, unspecified site; N17.9 Acute kidney failure, unspecified; I48.19 Other persistent atrial fibrillation; J45.909 Unspecified asthma, uncomplicated; I25.10 Atherosclerotic heart disease of native coronary artery without angina pectoris; I11.0 Hypertensive heart disease with heart failure; I50.22 Chronic systolic (congestive) heart failure; E78.5 Hyperlipidemia, unspecified; N40.0 Benign prostatic hyperplasia without lower urinary tract symptoms; I27.20 Pulmonary hypertension, unspecified; I34.0 Nonrheumatic mitral (valve) insufficiency; I71.20 Thoracic aortic aneurysm, without rupture, unspecified; G89.29 Other chronic pain; M54.50 Low back pain, unspecified; R77.8 Other specified abnormalities of plasma proteins; Z85.828 Personal history of other malignant neoplasm of skin; Z79.01 Long term (current) use of anticoagulants; Z79.899 Other long term (current) drug therapy
CPT/HCPCS: 99285; 36415; 95819; 93005; 93306; 97162; 97166; 80053 ×2; 82607; 82550; 82746; 84484; 85025 ×2; 85610; 85730; 83036; 83874; G0378 ×2

== ENCOUNTER 2022-03-13 06:46 | Day surgery (SDC) | payer MEDICARE, MEDICAID ==
[2022-03-13] MEDS ORDERED: SODIUM CHLORIDE 0.9% 500 ML 500 ML IV ONE (07:06)
[2022-03-13 07:22] VITALS: TEMP 98.3
[2022-03-13 08:22] LABS: Calcium 8.9 mg/dL (8.4-10.2); Potassium 3.8 mmol/L (3.5-5.1)
[2022-03-13] MEDS ORDERED: PROPOFOL 10 MG/ML 20 ML VIAL IV ONE ×2 (08:32)
--- NOTE | 2022-03-13 12:34 | CE ---
CARDIAC ELECTROPHYSIOLOGY REPORT PROCEDURE PERFORMED: Electrical cardioversion. INDICATION: Persistent atrial flutter. DrEverett Gutierrez Bladimir Donny is an 82-year-old gentleman with a history of recurrent persistent atrial fibrillation. He was seen in the office about a week or 10 days ago and amiodarone dose was increased to 200 mg daily. He continued to have atrial fib and on the last EKG, it looked more like atrial flutter. He was advised cardioversion, brought in for the procedure electively after due discussion regarding risks, benefits and options. PROCEDURE NOTE: Under the influence of [id number] intravenous anesthetic agent with the attendance of the anesthesiologist, a single shock was delivered with anterior and posterior patches. This was a 100-joule synchronized shock. The patient converted to sinus rhythm, remained hemodynamically stable and neurologically intact. This was a successful electrical cardioversion. MAGUE / MARCELINA: [id number] /
[2022-03-13 16:20] VITALS: RESP 16
[2022-03-13 16:27] VITALS: BP 117/63; PULSE 58
== END 2022-03-13 10:47 | disposition home or self-care (01) ==
LOC: CATHCVL 06:46
PROVIDERS: ATTEND Internal Medicine Interventional Cardiology
DX: I25.10 Atherosclerotic heart disease of native coronary artery without angina pectoris (principal); I48.11 Longstanding persistent atrial fibrillation
CPT/HCPCS: 92960; 80048; J2704

== ENCOUNTER → 2022-04-15 | Outpatient (CLI) | payer MEDICARE, MEDICAID ==
--- NOTE | 2022-04-15 16:02 | CT ---
EXAMINATION TYPE: CT left knee - [facility] Protocol DATE OF EXAM: 04/15/2022 COMPARISON: None HISTORY: Pre surgical left knee replacement CT DLP: 752 mGycm TECHNIQUE: Axial, sagittal and coronal images are obtained. FINDINGS: THERE IS DIVERTICULOSIS OF THE COLON. BLADDER IS NONDISTENDED. PROSTATE GLAND MILDLY ENLARGED. HYPERT ROPHIC CHANGES OF THE SYMPHYSIS PUBIS. THERE IS MILD TO MODERATE CONCENTRIC NARROWING OF THE HIP JOINT BILATERALLY. NO EROSIVE CHANGES. OSSE OUS STRUCTURES INTACT. THERE IS BILATERAL MODERATE TO SEVERE NARROWING OF THE MEDIAL COMPARTMENT OF KNEE JOINT. THERE IS NA RROWING OF PATELLOFEMORAL JOINT WITH A SUPRAPATELLAR BURSAL FLUID COLLECTION. SUBCUTANEOUS EDEMA NOTE D. SUGGESTION OF A GRAYSON'S CYST. THERE IS MUSCULAR ATROPHY. SOFT TISSUE VARICOSITIES NOTED. THERE IS SOFT TISSUE CALCIFICATIONS BOTH WITHIN THE SUPRAPATELLAR BURSA AND ALONG THE MARGIN OF THE FEMUR MEDI ALLY. CALCANEAL SPURS ARE NOTED. MILD HYPERTROPHIC CHANGE AND NARROWING ALONG THE TALAR DOME. COULD NOT EXC LUDE EARLY OSTEOCHONDRITIS OF THE TALAR DOME ON THE LEFT. IMPRESSION: 1. Osteoarthritis of the knee with arthritic change involving both the ankle and hip joint as discuss ed above. 2. Extensive soft tissue edema surrounding the knee with a suprapatellar bursal fluid collection as d iscussed above. 3. Small lucent changes involving the dome of the talus on the left. This can occasionally be associa cherelle with early osteochondritis. Consider follow-up MRI.
== END | disposition home or self-care (01) ==
LOC: RADCTMAIN 15:04
PROVIDERS: ATTEND Orthopaedic Surgery
DX: M19.072 Primary osteoarthritis, left ankle and foot (principal); M17.12 Unilateral primary osteoarthritis, left knee; R60.0 Localized edema; M93.262 Osteochondritis dissecans, left knee; Z96.652 Presence of left artificial knee joint

== ENCOUNTER 2023-10-15 15:26 | Inpatient (IN) | payer MEDICARE, MEDICAID ==
[2023-10-15] MEDS: MORPHINE SULFATE 4 MG/ML SYRINGE IVP STA (15:59)
[2023-10-15] MEDS: MORPHINE SULFATE 4 MG/ML SYRINGE IM STA (16:00)
[2023-10-15] MEDS: HYDROmorphone 1 MG/ML 1 ML SYRINGE IVP STA ×2 (16:20→17:56)
[2023-10-15] MEDS: DIPH,PERTUS(ACELL)TETVAC-LF 0.5 ML VIAL IM ONE (16:22)
[2023-10-15 16:55] LABS: Basophils % (A) 1 %; Eosinophils # (A) 0.2 k/uL (0-0.7); Eosinophils % (A) 3 %; HCT 42.3 % (39.0-53.0); HGB 13.9 gm/dL (13.0-17.5); Lymphocytes # (A) 1.1 k/uL (1.0-4.8); Lymphocytes % (A) 15 %; MCH 31.4 pg (25.0-35.0); MCHC 32.8 g/dL (31.0-37.0); MCV 95.5 fL (80.0-100.0); Mean Platelet Volume 8.6; Monocytes # (A) 0.7 k/uL (0-1.0); Monocytes % (A) 9 %; Neutrophils # (A) 4.9 k/uL (1.3-7.7); Neutrophils % (A) 70 %; Platelet Count 211 k/uL (150-450); RBC 4.43 m/uL (4.30-5.90); RDW 13.3 % (11.5-15.5)
--- NOTE | 2023-10-15 17:03 | CT ---
EXAMINATION TYPE: CT brain lori laughlin con DATE OF EXAM: 10/15/2023 COMPARISON: 01/18/2022 HISTORY: 83-year-old male with fall, pain, scalp laceration CT DLP: 1640.5 mGycm Automated exposure control for dose reduction was used. Technique: Examination of the head was done in axial plane without intravenous contrast. Coronal and sagittal reconstructions performed. CT of the cervical spine was obtained in axial plane without intravenous injection of contrast mater ial. Coronal and sagittal reformatted images were obtained from the axial views for evaluation of f ractures, spinal alignment and canal. FINDINGS: Head: Large laceration along the left cerebral convexity with skin lilia. No underlying calvarial fractur e. There is no evidence of acute intracranial hemorrhage, acute ischemic changes, mass, mass-effect, or extra-axial fluid collection. There is no effacement of cerebral sulci or basal subarachnoid cister ns. Mild ventriculomegaly is unchanged. Confluent white matter hypodensities in both cerebral hemisph eres unchanged. There is no midline shift. [place]-white matter distinction is preserved. Rightward nasal septal deviation. Mild mucosal thickening ethmoid air cells. Mastoid air cells well p neumatized. Cervical spine: No craniocervical junction abnormality, predental space widening, or prevertebral soft tissue swellin g. Reversal the normal cervical lordosis. Severe disc/endplate degenerative change mid to lower cervical spine and visualized upper thoracic sp ine. Degenerative interbody ankylosis C4-C5. Disc osteophyte complex contributes to moderate spinal canal stenosis at C5-C6. Degenerative grade 1 retrolisthesis C6-C7 grade 1 anterolisthesis C7-T1 and also T2-T3. Hypertrophic facet and uncovertebral joint arthropathy is present throughout. No acute fracture seen of the cervical spine. Vertebral moderate neuroforaminal stenoses throughout. More moderate to severe on the left at C5-C6 a nd on both sides in C6/C7. Sagittal and coronal reformatted images confirm above findings. COMBINED IMPRESSION: 1. Large left lateral scalp laceration with skin lilia. No acute intracranial abnormality seen. 2. Mild ventriculomegaly probably due to central cerebral atrophy. Correlate to exclude a component o f NPH. 3. Moderate confluent burden of chronic small vessel ischemic disease. 4. No acute fracture of the cervical spine. 5. Similar advanced multilevel spondylotic change with loss of the normal cervical lordosis, degenera tive interbody ankylosis C4-C5, and degenerative grade 1 spondylolisthesis C6-C7, C7-T1, and T2-T3. 6. Suspect moderate spinal canal stenosis at C5-C6 and variable moderate to severe neural foraminal s tenoses especially C5-C6 and C6-C7.
[2023-10-15 17:06] LABS: ALT 19 U/L (4-49); AST 28 U/L (17-59); African American GFR (CKD) 67 (>60 ml/min/1.73 sqM); Albumin 4.5 g/dL (3.5-5.0); Alkaline Phosphatase 89 U/L (38-126); Anion Gap 10 mmol/L; Blood Urea Nitrogen 21 mg/dL (9-20); Calcium 9.4 mg/dL (8.4-10.2); Carbon Dioxide 26 mmol/L (22-30); Chloride 107 mmol/L (98-107); Glucose 113 mg/dL (74-99); Non-African American GFR(CKD) 58 (>60 ml/min/1.73 sqM); Potassium 4.3 mmol/L (3.5-5.1); Sodium 143 mmol/L (137-145); Total Bilirubin 1.1 mg/dL (0.2-1.3); Total Protein 7.2 g/dL (6.3-8.2)
[2023-10-15 17:24] LABS: Prothrombin Time 11.2 sec (10.0-12.5)
--- NOTE | 2023-10-15 17:24 | XR ---
EXAMINATION TYPE: XR Hip 2 views LT and AP Pelvis DATE OF EXAM: 10/15/2023 Comparison: None Clinical History: 83-year-old male fall, left hip pain Findings: There are impacted and proximally migrated femoral neck fracture on the left with external rotation o f the shaft. SI joints appear symmetric and intact as does the pubic symphysis. There is a right L5 h emisacralization noted. Impression: Impacted and proximally migrated left femoral neck fracture.
[2023-10-15] MEDS ORDERED: NALOXONE 0.4 MG/ML 1 ML VIAL IV PRN (18:03)
--- NOTE | 2023-10-15 18:03 | ED ---
Fall HPI - General Chief Complaint: Fall Stated Complaint: fall/head injury Time Seen by Provider: 10/15/23 15:50 Source: EMS Mode of arrival: EMS - History of Present Illness Initial Comments: 83-year-old male presents to the emergency department with head injury. Patient was eating at [employer] when he lost his balance and fell. Patient hit his head against a door jam. He began having some pain in the left groin. He was unable to get up and ambulate. He had significant blood loss from his left scalp wound. Daughter applied pressure and EMS was called. They did offer pain medications en route to the hospital however the patient refused. Upon arrival patient denies any head or neck pain. He is in a c-collar. He does take Eliquis for A-fib. He did take his dose this morning. He does admit to left hip pain. Denies any numbness, tingling or weakness in his lower extremity. No back pain. Denies chest pain or difficulty breathing. No other alleviating, precipitating or modifying factors - Related Data Home Medications Medication Instructions Recorded Confirmed Montelukast Sodium [Singulair] 10 mg PO HS@199901/16/19 10/15/23 Metoprolol Tartrate 25 mg PO BID@799,199911/17/19 10/15/23 Tamsulosin [Flomax] 0.4 mg PO DAILY@79911/17/19 10/15/23 Amiodarone [Cordarone] 200 mg PO DAILY@79901/16/20 10/15/23 Apixaban [Eliquis] 5 mg PO BID@01/20/22 10/15/23 amLODIPine [Norvasc] 2.5 mg PO DAILY@79901/20/22 10/15/23 lisinopriL [Prinivil] 20 mg PO DAILY@79903/12/22 10/15/23 Atorvastatin [Lipitor] 20 mg PO HS@199910/15/23 10/15/23 Furosemide [Lasix] 20 mg PO DAILY@79910/15/23 10/15/23 traMADol HCL 50 mg PO Q6H PRN 10/15/23 10/15/23 Allergies Allergy/AdvReac Type Severity Reaction Status Date / Time avocado Allergy Itching in Verified 10/15/23 16:35 throat Review of Systems ROS Statement: Those systems with pertinent positive or pertinent negative responses have been documented in the HPI. ROS Other: All systems not noted in ROS Statement are negative. Past Medical History Past Medical History: Atrial Fibrillation, Atrial Flutter, Asthma, Coronary Artery Disease (CAD), Cancer, Heart Failure, Hearing Disorder / Deafness, Hyperlipidemia, Hypertension, Prostate Disorder Additional Past Medical History / Comment(s): Hx basal cell, squamous cell lesions. Thoracic aortic aneurysm. Hearing aids. BPH. History of Any Multi-Drug Resistant Organisms: None Reported Past Surgical History: Appendectomy, Heart Catheterization, Hernia Repair Additional Past Surgical History / Comment(s): Bilat Cataracts, Cardioversion x2 - last 08/2020, LIP LESION REMOVED Past Anesthesia/Blood Transfusion Reactions: No Reported Reaction Additional Past Anesthesia/Blood Transfusion Reaction / Comment(s): no blood transfusions Past Psychological History: No Psychological Hx Reported Smoking Status: Never smoker - Past Family History Mother Family Medical History: No Reported History General Exam Limitations: no limitations General appearance: alert, in no apparent distress Head exam: Present: other (11 cm laceration -crescent flap over the left parietal region. Active bleeding with multiple pulsatile vessels.) Eye exam: Present: normal appearance, PERRL, EOMI. Absent: scleral icterus, conjunctival injection, periorbital swelling ENT exam: Present: normal exam, mucous membranes moist Neck exam: Present: other (c-collar) Respiratory exam: Present: normal lung sounds bilaterally Cardiovascular Exam: Present: regular rate, normal rhythm, normal heart sounds. Absent: systolic murmur, diastolic murmur, rubs, gallop, clicks GI/Abdominal exam: Present: soft, normal bowel sounds. Absent: distended, tend erness, guarding, rebound, rigid Extremities exam: Present: tenderness (To palpation of the left inguinal region. shortening and rotation not appreciated) Back exam: Present: normal inspection Neurological exam: Present: alert, other (some repetitive questioning) Psychiatric exam: Present: normal affect, normal mood Course Vital Signs 10/15/23 10/15/23 10/15/23 15:47 18:31 18:34 Temperature 98.4 F Pulse Rate 56 L 63 Respiratory 18 18 Rate Blood Pressure 161/89 175/90 O2 Sat by Pulse 98 85 L 92 L Oximetry 10/15/23 19:46 Temperature 97.6 F Pulse Rate 68 Respiratory 18 Rate Blood Pressure 167/93 O2 Sat by Pulse 95 Oximetry Procedures - Laceration Laceration #1 Consent Obtained: emergent situation Indication: laceration Site: scalp Size (cm): 13 Description: flap Depth: involves muscle layer, arterial injury Type of Sutures: vicryl Size of Sutures: 5-0 Number of Sutures: 12 (12 lilia and 1 vicyl stitch) Complications: bleeding Patient Tolerated Procedure: well Additional Comments: Significant pulsatile bleeding from several locations. Wound was cleansed however lilia were emergently placed to try and close the skin surface. Medical Decision Making - Medical Decision Making Was pt. sent in by a medical professional or institution (, PA, ESTATE PLANNER, urgent care, hospital, or fci...) When possible be specific @ -No Did you speak to anyone other than the patient for history (EMS, parent, family, police, friend...)? What history was obtained from this source @ -Spoke with EMS and daughter for history Did you review nursing and triage notes (agree or disagree)? Why? @ -I reviewed and agree with nursing and triage notes Were old charts reviewed (outside hosp., previous admission, EMS record, old EKG, old radiological studies, urgent care reports/EKG's, fci records)? Report findings @ -No old charts were reviewed Differential Diagnosis (chest pain, altered mental status, abdominal pain women, abdominal pain men, vaginal bleeding, weakness, fever, dyspnea, syncope, headache, dizziness, GI bleed, back pain, seizure, CVA, palpatations, mental health, musculoskeletal)? @ -Differential Musculoskeletal Muscular strain, contusion, ligament sprain, fracture, arthritis, septic arthritis, bursitis, cellulitis, muscle spasm, nerve compression, DVT, arterial occlusion, herpes zoster, electrolyte abnormality, tumor.... This is not meant to be in all inclusive list EKG interpreted by me (3pts min.). @ -Yes and demonstrates sinus rhythm with a rate of 61. NE interval 240. QRS 123. QTc of 392. Baseline artifact. No acute ST segment elevation X-rays interpreted by me (1pt min.). @ -Yes and demonstrates left femoral neck fracture CT interpreted by me (1pt min.). @ -Yes and demonstrates no acute intracranial process. Scalp hematoma U/S interpreted by me (1pt. min.). @ -None done What testing was considered but not performed or refused? (CT, X-rays, U/S, labs)? Why? @ -None What meds were considered but not given or refused? Why? @ -None Did you discuss the management of the patient with other professionals (professionals i.e. , PA, ESTATE PLANNER, lab, RT, psych nurse, social service manager, service attendant, teacher, human resources officer, pillowcase cleaner)? Give summary @ -I discussed management with Dr. Hensley and Dr. Prince from orthopedics. Also spoke with Dr. Haney from [facility] for medical management Was smoking cessation discussed for >3mins.? @ -No Was critical care preformed (if so, how long)? @ -No Were there social determinants of health that impacted care today? How? (Homelessness, low income, unemployed, alcoholism, drug addiction, tra nsportation, low edu. Level, literacy, decrease access to med. care, [facility], rehab)? @ -No Was there de-escalation of care discussed even if they declined (Discuss DNR or withdrawal of care, Hospice)? DNR status @ -No What co-morbidities impacted this encounter? (DM, HTN, Smoking, COPD, CAD, Cancer, CVA, ARF, Chemo, Hep., AIDS, mental health diagnosis, sleep apnea, morbid obesity)? @ -A-fib on Eliquis Was patient admitted / discharged? Hospital course, mention meds given and route, prescriptions, significant lab abnormalities, going to OR and other pertinent info. @ -Upon arrival patient seen and evaluated in room 8. Thorough history and physical exam was performed. Patient does have pulsatile bleeding from his left scalp wound. I did use normal saline to cleanse the area and laceration was closed using 12 lilia originally. Compression dressing was applied to the site. I then reevaluated the wound an hour later. There continue be some pulsatile bleeding from the most anterior aspect of the wound. 2 lilia were removed. I attempted cautery of the area which did slow some of the bleeding however a Vicryl, 5-0 stitch was placed in the subcutaneous tissue. I then placed 3 lilia over the site for a total of 13 lilia. Bleeding is controlled at this time. Pressure dressing placed over the top of the patient's wound. Patient was updated on his tetanus. He was additionally given Ancef for empiric coverage. CT of the brain and cervical spine was obtained which de monstrates no acute intracranial process. X-ray of the left hip does demonstrate a femoral neck fracture. I spoke with Dr. Hensley who is on-call for orthopedics however patient does request Dr. Prince as this is his orthopedic surgeon. I spoke with Dr. Prince who agreed to admit the patient. I spoke with Dr. Haney from [facility] who will consult on the patient for medical management. Patient admitted to the floor in stable condition Undiagnosed new problem with uncertain prognosis? @ -No Drug Therapy requiring intensive monitoring for toxicity (Heparin, Nitro, Insulin, Cardizem)? @ -No Were any procedures done? @ -No Diagnosis/symptom? @ -Acute fall from standing, blunt head trauma, scalp laceration, left hip fracture Acute, or Chronic, or Acute on Chronic? @ -Acute Uncomplicated (without systemic symptoms) or Complicated (systemic symptoms)? @ -Complicated Side effects of treatment? @ -No Exacerbation, Progression, or Severe Exacerbation? @ -No Poses a threat to life or bodily function? How? (Chest pain, USA, OR, pneumonia, PE, COPD, DKA, ARF, appy, cholecystitis, CVA, Diverticulitis, Homicidal, Suicidal, threat to staff... and all critical care pts) @ -No - Lab Data Result diagrams: 10/15/23 16:20 10/15/23 16:20 Lab Results 10/15/23 10/15/23 10/15/23 Range/Units 16:20 16:20 16:20 WBC 7.0 (3.8-10.6) k/uL RBC 4.43 (4.30-5.90) m/uL Hgb 13.9 (13.0-17.5) gm/dL Hct 42.3 (39.0-53.0) % MCV 95.5 (80.0-100.0) fL MCH 31.4 (25.0-35.0) pg MCHC 32.8 (31.0-37.0) g/dL RDW 13.3 (11.5-15.5) % Plt Count 211 (150-450) k/uL MPV 8.6 Neutrophils % 70 % Lymphocytes % 15 % Monocytes % 9 % Eosinophils % 3 % Basophils % 1 % Neutrophils # 4.9 (1.3-7.7) k/uL Lymphocytes # 1.1 (1.0-4.8) k/uL Monocytes # 0.7 (0-1.0) k/uL Eosinophils # 0.2 (0-0.7) k/uL Basophils # 0.0 (0-0.2) k/uL PT 11.2 (10.0-12.5) sec INR 1.0 (<1.2) Sodium 143 (137-145) mmol/L Potassium 4.3 (3.5-5.1) mmol/L Chloride 107 (98-107) mmol/L Carbon Dioxide 26 (22-30) mmol/L Anion Gap 10 mmol/L BUN 21 H (9-20) mg/dL Creatinine 1.16 (0.66-1.25) mg/dL Est GFR (CKD-EPI)AfAm 67 (>60 ml/min/1.73 sqM) Est GFR (CKD-EPI)NonAf 58 (>60 ml/min/1.73 sqM) Glucose 113 H (74-99) mg/dL Calcium 9.4 (8.4-10.2) mg/dL Total Bilirubin 1.1 (0.2-1.3) mg/dL AST 28 (17-59) U/L ALT 19 (4-49) U/L Alkaline Phosphatase 89 (38-126) U/L Total Protein 7.2 (6.3-8.2) g/dL Albumin 4.5 (3.5-5.0) g/dL Disposition Clinical Impression: Fall, Blunt head trauma, Scalp laceration, Anticoagulant effect, Hip fracture, left Disposition: ADMITTED IP TO THIS HOSP Condition: Stable Is patient prescribed a controlled substance at d/c from ED?: No Time of Disposition: 18:03 Decision to Admit Reason: Admit from EC Decision Date: 10/15/23 Decision Time: 18:03
--- NOTE | 2023-10-15 19:19 | XR ---
EXAMINATION TYPE: XR chest 1V DATE OF EXAM: 10/15/2023 COMPARISON: 01/11/2021 HISTORY: 83-year-old male preoperative evaluation TECHNIQUE: Single frontal view of the chest is obtained. FINDINGS: Heart upper limits of normal in size. Most of the interstitial prominence appears similar. There is patchy left basilar opacity present which should be correlated clinically. IMPRESSION: Patchy left basilar atelectasis versus infiltrate. Correlate with symptoms.
[2023-10-15] MEDS: HYDROmorphone 1 MG/ML 1 ML SYRINGE IVP PRN (20:51)
--- NOTE | 2023-10-16 00:41 | P.HPIM ---
History of Present Illness H&P Date: 10/15/23 Patient is a 83-year-old male with a past medical history of atrial fibrillation (cardioversion x 2, on Eliquis), coronary artery disease (stent placement), age- related bilateral hearing loss, hypertension, hyperlipidemia, CHF with preserved ejection fraction (55 to 60% EF on last echo), thoracic aortic aneurysm who presented to the ED by EMS for witnessed fall. Patient was having lunch with family and walking to the bathroom when he fell to his left side and hit a door hinge on the head. The patient was ambulating with 4-prong cane and does not fully recall the episode but bystanders noted that his left side gave out. Patient experienced left hip pain immediately after the fall, located at left inner groin and he could not ambulate due to pain. He was also noted to have his left leg rotated outward externally rotated and with a laceration on the left parietal area of the skull. He denies loss of consciousness, dizziness, any facial asymmetry, changes in speech, chest pain, neck pain, blurry vision, or headaches. Chest x-ray shows patchy left basilar atelectasis versus infiltrate. X-ray of hip and pelvis shows impacted and proximally migrated left femoral neck fract ure. CT of head and cervical spine shows large left lateral scalp laceration with skin lilia. No acute intracranial abnormality seen. Mild ventriculomegaly probably due to central atrophy. Moderate confluent burden of chronic small vessel ischemic disease. No acute fracture of the cervical spine with noted advanced multilevel spondylotic change with loss of the normal cervical lordosis, degenerative ankylosis of C4-C5 and moderate spinal canal stenosis at C5-C6 and moderate severe neuroforaminal stenosis on C5-C6 and C6- C7. EKG shows normal sinus rhythm with first-degree AV block MI interval 240 ms, widened QRS at 123 ms, normal axis, good R wave progression, normal QTc 392 ms. WBC 7 hemoglobin 13.9 hematocrit 42.3 MCV 95.5 platelet count 211 PT 11.2 INR 1 sodium 143 potassium 4.3 chloride 107 BUN 21 creatinine 1.16 glucose 113 total bilirubin 1.1 AST 28 ALT 19 alk phos 89 albumin 4.5. ED documentation reviewed and case discussed with ED provider. Review of systems: Pertinent positives and negatives as discussed in HPI, a complete review of systems was performed and all other systems are negative. 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 Physical examination: Vital signs reviewed General: non toxic, no distress, appears at stated age, normal weight Derm: scalp laceration as described below, warm Head: 11 cm laceration over the left parietal region noted to have 13 lilia and 1 stitch, normocephalic, symmetric Eyes: EOMI, no lid lag, anicteric sclera, pupils equal round reactive to light ENT: Nose and ears atraumatic Neck: No cervical lymphadenopathy, trachea midline, supple Mouth: no lip lesion, mucus membranes moist Cardiovascular: S1S2 reg, no murmur Lungs: Bibasilar mild crackles, no rhonchi, no rales, no accessory muscle use Abdominal: soft, nontender to palpation, no guarding Ext: muscle strength 5 out of 5 in all extremities grossly except proximal LLE (due to pain), no gross muscle atrophy, no contractures, positive dorsalis pedis pulse bilateral, bilateral lower extremity +2 pitting edema Neuro: CN II-XI grossly intact, no gross focal neuro deficits Psych: Alert, oriented, appropriate affect and mood Assessment/Plan: #. Left hip fracture secondary to fall Pain well controlled with [place] p.o. every 4 hours as needed with Dilaudid 1 mg IVP q3h prn Consulted cardiology for preoperative clearance #. Left parietal laceration of the scalp Patient is AXO x 3 with no focal deficits Continue with wound assessment and care Monitor for bleeding and changes in mental status #. Bibasilar crackles, likely atelectasis Patient is currently not experiencing any shortness of breath or discomfort Order incentive spirometry #. Hypertensive urgency Resume home meds Norvasc 2.5 mg p.o. daily, and lisinopril 20 mg Order additional hydralazine dose #. Atrial fibrillation, controlled Stop Eliquis for now due to pending surgery Consult cardio for preop clearance #. CHF, preserved ejection fraction (last echo showed 55 to 60%) Resume home meds Consult cardio for preop clearance Home Lasix held in anticipation of surgery Chronic conditions: CAD with prior heart cath prior heart cath and stent placement, Hypertension, Hyperlipidemia, Bilateral hearing loss Thoracic aortic aneurysm Resume patient's home medications including amiodarone 200 mg p.o. daily, amlodipine 2.5 mg p.o. daily, Lipitor 20 mg p.o. nightly, lisinopril 20 mg p.o. daily, Lopressor 25 mg p.o. twice daily, Singulair 10 mg p.o. nightly, and Flomax 0.5 mg p.o. daily Defer management of pain control and DVT prophylaxis to the primary surgery service. We appreciate this opportunity to be involved in this patient's care. We will follow the patient with you. For any further questions, please not hesitate to contact the sound inpatient team. Past Medical History Past Medical History: Atrial Fibrillation, Atrial Flutter, Asthma, Coronary Artery Disease (CAD), Cancer, Heart Failure, Hearing Disorder / Deafness, Hyperlipidemia, Hypertension, Prostate Disorder Additional Past Medical History / Comment(s): Hx basal cell, squamous cell lesions. Thoracic aortic aneurysm. Hearing aids. BPH. History of Any Multi-Drug Resistant Organisms: None Reported Past Surgical History: Appendectomy, Heart Catheterization, Hernia Repair Additional Past Surgical History / Comment(s): Bilat Cataracts, Cardioversion x2 - last 08/2020, LIP LESION REMOVED Past Anesthesia/Blood Transfusion Reactions: No Reported Reaction Additional Past Anesthesia/Blood Transfusion Reaction / Comment(s): no blood transfusions Past Psychological History: No Psychological Hx Reported Smoking Status: Never smoker - Past Family History Mother Family Medical History: No Reported History Medications and Allergies Home Medications Medication Instructions Recorded Confirmed Type Montelukast Sodium [Singulair] 10 mg PO HS@199901/16/19 10/15/23 History Metoprolol Tartrate 25 mg PO BID@0811/17/19 10/15/23 History Tamsulosin [Flomax] 0.4 mg PO DAILY@79911/17/19 10/15/23 History Amiodarone [Cordarone] 200 mg PO DAILY@79901/16/20 10/15/23 History Apixaban [Eliquis] 5 mg PO BID@799,199901/20/22 10/15/23 History amLODIPine [Norvasc] 2.5 mg PO DAILY@0801/20/22 10/15/23 History lisinopriL [Prinivil] 20 mg PO DAILY@79903/12/22 10/15/23 History Atorvastatin [Lipitor] 20 mg PO HS@199910/15/23 10/15/23 History Furosemide [Lasix] 20 mg PO DAILY@0810/15/23 10/15/23 History traMADol HCL 50 mg PO Q6H PRN 10/15/23 10/15/23 History Allergies Allergy/AdvReac Type Severity Reaction Status Date / Time avocado Allergy Itching in Verified 10/15/23 16:35 throat Physical Exam Vitals: Vital Signs Temp Pulse Resp BP Pulse Ox 10/15/23 18:34 92 L 10/15/23 18:31 98.4 F 63 18 175/90 85 L 10/15/23 15:47 56 L 18 161/89 98 Intake and Output 10/15/23 10/15/23 10/15/23 06:59 14:59 22:59 Output Total 400 Balance -400 Output: Urine 400 Uretheral (Fajardo) 400 Other: Weight 88.904 kg Results CBC & Chem 7: 10/15/23 16:20 10/15/23 16:20 Labs: Abnormal Lab Results - Last 24 Hours (Table) 10/15/23 Range/Units 16:20 BUN 21 H (9-20) mg/dL Glucose 113 H (74-99) mg/dL
[2023-10-16] MEDS: METOPROLOL TARTRATE 25 MG TAB PO SCH (08:40)
[2023-10-16] MEDS: TAMSULOSIN 0.4 MG CAP.ER.24H PO SCH (08:40)
[2023-10-16] MEDS: amLODIPine 2.5 MG TAB PO SCH (08:40)
[2023-10-16] MEDS: lisinopriL 20 MG TAB PO SCH ×2 (08:40→10:52)
[2023-10-16] MEDS: AMIODARONE 200 MG TAB PO SCH (08:40)
[2023-10-16 08:58] LABS: Basophils % (A) 0 %; Eosinophils # (A) 0.3 k/uL (0-0.7); Eosinophils % (A) 3 %; HCT 40.5 % (39.0-53.0); HGB 13.5 gm/dL (13.0-17.5); Lymphocytes # (A) 0.7 k/uL (1.0-4.8); Lymphocytes % (A) 10 %; MCH 32.1 pg (25.0-35.0); MCHC 33.4 g/dL (31.0-37.0); MCV 96.3 fL (80.0-100.0); Mean Platelet Volume 9.1; Monocytes # (A) 0.9 k/uL (0-1.0); Monocytes % (A) 12 %; Neutrophils # (A) 5.5 k/uL (1.3-7.7); Neutrophils % (A) 73 %; Platelet Count 188 k/uL (150-450); RBC 4.21 m/uL (4.30-5.90); RDW 13.8 % (11.5-15.5); WBC 7.5 k/uL (3.8-10.6)
[2023-10-16 09:16] LABS: African American GFR (CKD) 75 (>60 ml/min/1.73 sqM); Anion Gap 4 mmol/L; Blood Urea Nitrogen 19 mg/dL (9-20); Calcium 9.3 mg/dL (8.4-10.2); Carbon Dioxide 32 mmol/L (22-30); Chloride 107 mmol/L (98-107); Glucose 98 mg/dL (74-99); Non-African American GFR(CKD) 65 (>60 ml/min/1.73 sqM); Potassium 4.4 mmol/L (3.5-5.1); Sodium 143 mmol/L (137-145)
--- NOTE | 2023-10-16 09:55 | P.HPOR ---
History of Present Illness H&P Date: 10/16/23 The patient is a very pleasant 83-year-old male with multiple medical problems who is well-known to me as a patient. 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 The patient sustained a fall on the bathroom yesterday area he had a significant head laceration and isolated pain in his left hip. He was brought to the emergency department where his head laceration was repaired and x-rays revealed a left hip fracture. He was admitted under my care. At the time of my evaluation the patient is complaining of isolated pain in the left hip. He denies any antecedent hip pain. Of note its his 's celebration of life event today following her recent passing. Family is in town for this. Past Medical History Past Medical History: Atrial Fibrillation, Atrial Flutter, Asthma, Coronary Artery Disease (CAD), Cancer, Heart Failure, Hearing Disorder / Deafness, Hyperlipidemia, Hypertension, Prostate Disorder Additional Past Medical History / Comment(s): Hx basal cell, squamous cell lesions. Thoracic aortic aneurysm. Hearing aids. BPH. History of Any Multi-Drug Resistant Organisms: None Reported Past Surgical History: Appendectomy, Heart Catheterization, Hernia Repair Additional Past Surgical History / Comment(s): Bilat Cataracts, Cardioversion x2 - last 08/2020, LIP LESION REMOVED Past Anesthesia/Blood Transfusion Reactions: No Reported Reaction Additional Past Anesthesia/Blood Transfusion Reaction / Comment(s): no blood transfusions Past Psychological History: No Psychological Hx Reported Smoking Status: Never smoker - Past Family History Mother Family Medical History: No Reported History Medications and Allergies Home Medications Medication Instructions Recorded Confirmed Type Montelukast Sodium [Singulair] 10 mg PO HS@199901/16/19 10/15/23 History Metoprolol Tartrate 25 mg PO BID@0811/17/19 10/15/23 History Tamsulosin [Flomax] 0.4 mg PO DAILY@79911/17/19 10/15/23 History Amiodarone [Cordarone] 200 mg PO DAILY@79901/16/20 10/15/23 History Apixaban [Eliquis] 5 mg PO BID@01/20/22 10/15/23 History amLODIPine [Norvasc] 2.5 mg PO DAILY@79901/20/22 10/15/23 History lisinopriL [Prinivil] 20 mg PO DAILY@79903/12/22 10/15/23 History Atorvastatin [Lipitor] 20 mg PO HS@199910/15/23 10/15/23 History Furosemide [Lasix] 20 mg PO DAILY@79910/15/23 10/15/23 History traMADol HCL 50 mg PO Q6H PRN 10/15/23 10/15/23 History Allergies Allergy/AdvReac Type Severity Reaction Status Date / Time avocado Allergy Itching in Verified 10/15/23 16:35 throat Physical Examination Patient is resting comfortably in his bed. He is alert and able to answer questions. There is a laceration over the left temporal region of his head. There are lilia in place. His cervical spine is nontender. He damage is nom inal breathing symmetric chest expansion. His abdomen is soft. He has no pain in his upper extremities. He has no pain in his right lower extremity. A focused exam of the left lower, was conducted. The left leg is shortened and externally rotated. There are no skin lesions over the anterior aspect of the hip. His thigh and calf are soft. There is swelling distally in the leg. He will to actively plantarflex response his ankle and toes. Results X-ray's of the pelvis and left hip show a displaced femoral neck fracture. - Labs Labs: Abnormal Lab Results - Last 24 Hours (Table) 10/15/23 10/16/23 10/16/23 Range/Units 16:20 08:12 08:12 RBC 4.21 L (4.30-5.90) m/uL Lymphocytes # 0.7 L (1.0-4.8) k/uL Carbon Dioxide 32 H (22-30) mmol/L BUN 21 H (9-20) mg/dL Glucose 113 H (74-99) mg/dL H & H 10/15/23 10/16/23 Range/Units 16:20 08:12 Hgb 13.9 13.5 (13.0-17.5) gm/dL Hct 42.3 40.5 (39.0-53.0) % Coagulation 10/15/23 Range/Units 16:20 INR 1.0 (<1.2) Result Diagrams: 10/16/23 08:12 10/16/23 08:12 Assessment and Plan Assessment: Displaced left femoral neck fracture Plan: Note the patient and his family to discuss treatment options. I recommended a direct anterior left hip hemiarthroplasty to treat his displaced femoral neck fracture. We discussed both the procedure itself, potential risks and complications. 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 His family also is aware. He is been seen by internal medicine who was requested cardiac clearance. The patient is to remain on bedrest and be strictly nonweightbearing on the left lower extremity. We will plan on surgery later this afternoon if he is cleared by internal medicine and cardiology. Time with Patient: Greater than 30
[2023-10-16] MEDS: hydrALAZINE HCL 25 MG TAB PO STA (10:24)
--- NOTE | 2023-10-16 14:52 | P.PN ---
Subjective Progress Note Date: 10/16/23 Principal diagnosis: Hospital course: Patient is a 83-year-old male with a past medical history of atrial fibrillation (cardioversion x 2, on Eliquis), coronary artery disease (stent placement), age- related bilateral hearing loss, hypertension, hyperlipidemia, CHF with preserved ejection fraction (55 to 60% EF on last echo), thoracic aortic aneurysm who presented to the ED by EMS for witnessed fall. Patient was having lunch with family and walking to the bathroom when he fell to his left side and hit a door hinge on the head. The patient was ambulating with 4-prong cane and does not fully recall the episode but bystanders noted that his left side gave out. Patient experienced left hip pain immediately after the fall, located at left inner groin and he could not ambulate due to pain. He was also noted to have his left leg rotated outward externally rotated and with a laceration on the left parietal area of the skull. He denies loss of consciousness, dizziness, an y facial asymmetry, changes in speech, chest pain, neck pain, blurry vision, or headaches. Chest x-ray shows patchy left basilar atelectasis versus infiltrate. X-ray of hip and pelvis shows impacted and proximally migrated left femoral neck fracture. CT of head and cervical spine shows large left lateral scalp laceration with skin lilia. No acute intracranial abnormality seen. Mild ventriculomegaly probably due to central atrophy. Moderate confluent burden of chronic small vessel ischemic disease. No acute fracture of the cervical spine with noted advanced multilevel spondylotic change with loss of the normal cervical lordosis, degenerative ankylosis of C4-C5 and moderate spinal canal stenosis at C5-C6 and moderate severe neuroforaminal stenosis on C5-C6 and C6- C7. EKG independently interpreted normal sinus rhythm with first-degree. Labs on admission significant for BUN 21, glucose 113. Subjective: 10/15 patient seen and examined in room 473. Still complains of pain in the left hip. Was on 2 L of oxygen via nasal cannula. Denies shortness of breath, cough, chest pain, palpitations, dyspnea with rest or exertion. Today's labs evaluated and is significant for CO2 32. Physical exam: Vital signs reviewed General: nontoxic, no distress, appears at stated age Derm: warm, dry, intact Head: Laceration over the left parietal region, normocephalic, symmetric Eyes: EOMI, no lid lag, anicteric sclera Mouth: no lip lesion, mucus membranes moist Cardiovascular: S1 S2 reg, no murmur, rubs, or gallops Lungs: CTA bilateral, no rhonchi, no rales, no accessory muscle use Abdominal: soft, non-tender to palpataion, no appreciable organomegaly Extremities: B/L LE edema, no gross muscle atrophy, no contractures Neuro: Alert, Oriented, CNII-XII grossly intact, gait normal Psych: well appearing, appropriate affect Assessment/Plan: 83-year-old male with past medical history of atrial fibrillation, coronary artery disease with stent placement, age related bilateral hearing loss, hypertension, hyperlipidemia, CHF with preserved ejection fraction, thoracic aortic aneurysm, history of basal cell, squamous cell lesions presented to the ED after fall to his left side and hit a door hinge on the head and had a left parietal region laceration with pain in the left located in the inner groin. Patient is otherwise medically optimized for surgery. Pending cardiology recommendations. Mechanical fall Displaced left femoral neck fracture secondary to the fall Left parietal laceration of the scalp:Left parietal laceration of the scalp -Ortho following and pending direct anterior left hip hemoarthroplasty Patient is ANO x 3 with no focal deficits Continue with wound assessment and get Monitor for bleeding and changes in mental status [place] 5 1 each p.o. Q4HR PRN -Dilaudid 1 mg IVP Q3HR PRN Diazepam 5 mg IVP once PRN -Monitor for sedation -Morphine sulfate 4 mg IVP once stat, morphine sulfate 4 mg IM once stat given in the ED Acute hypoxic respiratory failure, resolved -O2 saturation 95% on room air in the ED, but on 2 L of oxygen via nasal cannula O2 saturation of 93%, patient feels fine -Wean off oxygen Hypertensive urgency: BP 180/85 Amlodipine 2.5 mg p.o. daily Lisinopril 20 mg p.o. daily Hydralazine 25 mg p.o. once stat was given in the ED Atrial fibrillation, rate controlled: Stop Eliquis for surgery Amiodarone 200 mg p.o. daily -Monitor on telemetry CHF with preserved ejection fraction, last echo showed 55 to 60% ejection fraction, not in exacerbation Coronary artery disease status post stent Metoprolol tartrate 25 mg p.o. twice daily Atorvastatin 20 mg p.o. at bedtime Hold Home Lasix held for surgery -No active chest pain, currently euvolemic -Discussed management with cardiology, pending echocardiogram -EKG independently interpreted, shows sinus rhythm with intraventricular conduction delay, first-degree AV block History of BPH: Continue tamsulosin 4.4 mg p.o. daily Asthma: Continue Montelukast 10mg PO HS Thank you for allowing us to participate in the care of this pleasant patient. Do not hesitate to contact us with questions. Someone can be reached from the [facility] hospitalist group all hours of the day at [phone] or via [employer]. I have seen and evaluated the patient today. Discussed with the resident and agree with the residents finding and plan as documented in the resident's note. Changes highlighted in blue font. Objective - Vital Signs Vital signs: Vital Signs Temp 98.8 F 10/16/23 07:45 Pulse 65 10/16/23 08:00 Resp 16 10/16/23 08:00 BP 180/85 10/16/23 07:45 Pulse Ox 93 L 10/16/23 07:45 FiO2 Intake & Output 10/15/23 10/16/23 10/16/23 18:59 06:59 18:59 Intake Total 540 Output Total 400 850 Balance -400 -310 Weight 88.904 kg 88.904 kg Intake: Oral 540 Output: Urine 400 850 Uretheral (Fajardo) 400 Other: Voiding Method Indwelling Catheter Indwelling Catheter - Labs CBC & Chem 7: 10/16/23 08:12 10/16/23 08:12 Labs: Abnormal Lab Results - Last 24 Hours (Table) 10/15/23 10/16/23 10/16/23 Range/Units 16:20 08:12 08:12 RBC 4.21 L (4.30-5.90) m/uL Lymphocytes # 0.7 L (1.0-4.8) k/uL Carbon Dioxide 32 H (22-30) mmol/L BUN 21 H (9-20) mg/dL Glucose 113 H (74-99) mg/dL
[2023-10-16] MEDS ORDERED: TRANEXAMIC 1,000 MG/100ML-NACL PREMIX BAG ONE (16:12)
[2023-10-16] MEDS ORDERED: GLYCOPYRROLATE 0.2 MG/ML 2 ML VIAL ONE (16:12)
[2023-10-16] MEDS ORDERED: PROPOFOL 10 MG/ML 20 ML VIAL IV ONE (16:12)
[2023-10-16] MEDS ORDERED: NEOSTIGMINE 1 MG/ML 10 ML VIAL ONE (16:12)
[2023-10-16] MEDS ORDERED: LIDOCAINE 1% INJ 10MG/ML (20 ML MDV) ONE (16:12)
[2023-10-16] MEDS ORDERED: ePHEDrine 50 MG/ML 1 ML VIAL ONE (16:12)
[2023-10-16] MEDS ORDERED: SUCCINYLCHOLINE CHLORIDE 200 MG/10 ML VIAL IV ONE (16:12)
[2023-10-16] MEDS ORDERED: ROCURONIUM 10 MG/ML (5 ML VIAL) IV ONE (16:12)
[2023-10-16] MEDS ORDERED: PHENYLEPHRINE-0.9% NACL SYG 1,000 MCG/10 ML SYRINGE ONE (16:12)
[2023-10-16] MEDS ORDERED: fentaNYL (PF) 50 MCG/ML 2 ML AMP ONE (16:12)
[2023-10-16] MEDS: LACTATED RINGERS 1,000 ML IV ONE (16:17)
[2023-10-16] MEDS: SODIUM CHLORIDE 0.9% 50 ML with ceFAZolin 2,000 MG IV ONE (16:17)
[2023-10-16] MEDS: ROPIVACAINE/EPI/CLONIDINE/KET 50 ML SYRINGE MISCELLANE PRN (16:58)
[2023-10-16] MEDS: EPINEPHrine 2 MG in SODIUM CHLORIDE 0.9% 200 ML IV ONE (17:01)
[2023-10-16] MEDS ORDERED: HYDROmorphone 0.5 MG/0.5 ML SYRINGE IVP PRN (18:33)
[2023-10-16] MEDS ORDERED: ONDANSETRON 4 MG/2 ML VIAL IVP PRN (18:33)
[2023-10-16] MEDS ORDERED: MAGNESIUM HYDROXIDE 2,400 MG/30 ML CUP PO PRN (18:33)
[2023-10-16] MEDS ORDERED: NALOXONE 0.4 MG/ML 1 ML VIAL IV PRN (18:33)
--- NOTE | 2023-10-16 18:33 | P.OP ---
Date of Procedure: 10/16/23 Preoperative Diagnosis: displaced left subcapital femoral neck fracture Postoperative Diagnosis: same Procedure(s) Performed: left direct anterior hip hemiarthroplasty Implants: 1. Shahbaz Accolade C Size # 5 Standard Offset Femoral Stem 2. [place] Bipolar Femoral head 52mm OD, 28mm ID, -4 mm neck Anesthesia: montez REECE Surgeon: Sam Prince Dry Mop Maker #1: Kerri Saucedo Estimated Blood Loss (ml): 200 IV fluids (ml): 1,000 Pathology: none sent Condition: stable Disposition: PACU Indications for Procedure: I met with the patient and their family to discuss treatment options. The patient has a displaced femoral neck fracture and based on their age, activity level, and medical comorbidities I recommended a hip hemiarthroplasty to facilitate early mobilization. My recommendation was to perform the hemiarthroplasty through a direct anterior approach to help lower the risk of dislocation and improve postoperative recovery and use cemented fixation of the femoral component to reduce the risk of fracture and postoperative thigh pain. We discussed the potential risks and complications of a hemiarthroplasty for displaced femoral neck fracture at length. Risks discussed include are certainly not limited to risks from anesthesia, superficial infection requiring local wound care and possibly surgical debridement, deep periprosthetic joint infection and the treatment for this, damage to local blood vessels or nerves particularly the lateral femoral cutaneous nerve, intraoperative fracture, postoperative periprosthetic fracture, leg length discrepancy, hip dislocation, aseptic loosening, groin pain, thigh pain, progression of arthritis requiring conversion to total hip arthroplasty, complications related to cementing the component, an inability to regain preinjury level of function, DVT, PE, acute coronary event, stroke, pneumonia, urinary tract infection, failure to thrive, and possibly . The patient and their family understand that while these are the most common complications other less common complications are possible. They provided their verbal and written consent to go forward with surgery. Operative Findings: displaced subcapital femoral neck fracture with large hemarthrosis Description of Procedure: The patient was identified in the preoperative holding area and the correct hip was marked with my initials. I reviewed the procedure and consent with the patient. All of their questions were answered. The patient was then brought back into the operating room by anesthesia. While on the [facility] anesthesia was administered by the anesthesia team. Preoperative antibiotics and tranexamic acid were also given. After the patient was under anesthesia I examined their ankles to determine their preoperative leg length discrepancy. The skin over the anterior aspect of the hip was shaved to remove hair over the site of planned incision. Both feet and ankles were padded with webril and boots for the [place] were applied. The patient was then carefully transferred onto the [place] table. A perineal post was immediately placed. The arms were placed on arm holders and were well-padded. Both boots were secured to the spars on the [place] table. The patient was positioned so that the pelvis was centered over the post. Nonsterile drapes were applied. A timeout was performed identifying the correct patient, operative extremity, and procedure. At this point fluoroscopy was brought in to take preoperative images of the pelvis and operative hip. A metallic bar was used to create a bi-ischial line for use as a reference to leg length adjustments during the procedure. Global offset was also measured on both the operative and nonoperative leg. Fluoroscopy was then brought out and a pre-scrub using a chlorhexidine scrub brush was performed. The operative limb was then prepped and draped in the standard sterile fashion. An anterior longitudinal incision was made lateral and distal to the ASIS. The skin and subcutaneous tissues were incised sharply. The underlying tensor fascia was identified and incised in its midportion. The fascia was dissected free from the underlying muscle and the muscle belly was retracted. A blunt tipped cobra retractor was placed over the superior neck under the muscle fibers of the gluteus minimus. The deep enveloping fascia of the tensor was incised. The anterior leash of vessels were then identified and cauterized. The fascia between the rectus and the capsule was then incised and the pre-capsular fat was excised. A second Cobra was placed inferior to the neck. The interval between the rectus and iliocapsularis and the hip capsule was developed and a retractor was placed carefully over the anterior rim of the acetabulum. A T-shaped anterior capsulotomy was performed. A hemarthrosis consistent with a femoral neck fracture was identified. The superior capsular leaflet was left in place in the inferior capsular flap was excised. The Cobra retractors were placed intracapsularly. A displaced femoral neck fracture was then identified. We then made a femoral neck osteotomy according to preoperative and intraoperative templating and confirmed the level of the osteotomy using fluoroscopic imaging. The femoral head was removed, passed off to the back table, and sized. The superior capsular flap was excised. On inspection of the acetabulum there were minimal degenerative changes with intact cartilage. Attention was then turned to the femur. The remnant dorsal lateral capsule was excised. The short external rotators were visible and protected. A bone hook was used to confirm appropriate translation of the trochanter away from the acetabulum. The leg was then extended and adducted and the bone hook was used to elevate the femur for broaching. A box osteotome and blunt tipped canal sound was then utilized to gain access to the femoral canal. We then sequentially broached the femur in appropriate anteversion until torsional stability was achieved and the implant was felt to have reached the appropriate size to allow trialing. The neck cut was brought flush to the trial broach with a calcar planar. A trial neck and head were then placed onto the broach and the hip was atraumatically reduced under direct visualization. External rotation to 90 was performed to assess stability. Fluoroscopy was brought in. An AP and lateral fluoroscopic image of the proximal femur was obtained to assess position and fill of the trial broach. An AP of the pelvis was then obtained and matched to the preoperative image taken. A bi-ischial bar was then placed and measurements were taken to assess changes in length and offset. The hip was then carefully dislocated, the proximal femur was exposed, and the trial implants were removed. The proximal femur was then prepared for cementing. The canal was thoroughly irrigated with pulsatile lavage to remove blood and marrow contents. A cement restrictor was placed to a depth just distal to the tip of the final implant. Epinephrine-soaked gauze was then packed into the proximal femur. 2 bags of cement with antibiotics were then mixed using a centrifuge and placed into a cement gun. Anesthesia was notified that cementing was about to commence to make sure the patient was appropriately ventilated and hydrated. Once the cement had reached appropriate consistency, the cement gun was used to fill the canal in a retrograde fashion starting at the restrictor. Cement was then pressurized into the canal with a blue tipped commercial intelligence manager. The stem was th en carefully introduced into the cement taking care to guide the implant into appropriate version. The stem was held in position until the cement had fully set. All extra cement was removed while the cement was hardening. The trunnion was cleansed and the final head was tapped into place to engage the Castano taper. The acetabulum was irrigated and visualized to be free of debris. The hip was carefully reduced. Stability was checked clinically with external rotation to 90 and there was no evidence of instability. Final fluoroscopic images were taken. The wound was then thoroughly irrigated with Irrisept. 3 L of sterile saline was irrigated through the wound using pulsatile lavage. Local anesthetic cocktail was injected into the soft tissues around the surgical field. The wound was then closed in layers. A sterile dressing was placed over the surgical incision. The drapes were taken down and the patient was carefully transferred off of the [place] table. Following removal of the boots the leg lengths felt acceptable. The patient was then taken to recovery room having tolerated the procedure well. Kerri Saucedo NP was required as a skilled bilingual teacher assistant due to the complexity of surgery for patient positioning, draping, exposure, retraction, closure of wound, and application of dressing PLAN: The patient can weight-bear as tolerated on the operative extremity. 2 doses of postoperative antibiotics. DVT prophylaxis with aspirin 81 mg twice a day based on preoperative risk stratification. Physical therapy for gait training.
--- NOTE | 2023-10-16 19:18 | XR ---
EXAMINATION TYPE: XR Hip Complete LT, FL guidance operating room DATE OF EXAM: 10/16/2023 FLUOROSCOPY Intraoperative fluoroscopy during bipolar left hip hemiarthroplasty. 12 SEC FL. DAP 0.71 gYCM2. 4 I SHARMILA
[2023-10-16] MEDS: SODIUM CHLORIDE 0.9% 1,000 ML IV SCH (23:05)
[2023-10-16] MEDS: MONTELUKAST 10 MG TAB PO SCH (23:09)
[2023-10-16] MEDS: SENNOSIDES-DOCUSATE SODIUM 1 EACH TAB PO SCH (23:09)
[2023-10-16] MEDS: ATORVASTATIN 20 MG TAB PO SCH (23:10)
[2023-10-16] MEDS: QUEtiapine 25 MG TAB PO STA (23:42)
[2023-10-17 00:50] LABS: Basophils % (A) 0 %; Eosinophils # (A) 0.1 k/uL (0-0.7); Eosinophils % (A) 1 %; HGB 12.8 gm/dL (13.0-17.5); Lymphocytes # (A) 0.6 k/uL (1.0-4.8); Lymphocytes % (A) 6 %; MCH 31.7 pg (25.0-35.0); MCHC 32.8 g/dL (31.0-37.0); MCV 96.9 fL (80.0-100.0); Mean Platelet Volume 9.1; Monocytes # (A) 1.2 k/uL (0-1.0); Monocytes % (A) 12 %; Neutrophils # (A) 8.6 k/uL (1.3-7.7); Neutrophils % (A) 81 %; Platelet Count 172 k/uL (150-450); RBC 4.02 m/uL (4.30-5.90); RDW 13.3 % (11.5-15.5); WBC 10.6 k/uL (3.8-10.6)
[2023-10-17] MEDS: HYDROcodone/APAP 5-325MG 1 EACH TAB PO PRN (04:05)
--- NOTE | 2023-10-17 08:05 | P.PN ---
Subjective Patient is doing well this morning. No acute events per nursing. He states that his left hip pain is better than before surgery as he is now able to move his hip without pain. He has no other complaints other than being tired. Objective - Vital Signs Vital signs: Vital Signs Temp 97.4 F L 10/17/23 06:58 Pulse 64 10/17/23 06:58 Resp 16 10/17/23 06:58 BP 141/81 10/17/23 06:58 Pulse Ox 95 10/17/23 06:58 FiO2 Intake & Output 10/16/23 10/17/23 10/17/23 18:59 06:59 18:59 Intake Total 951 Output Total 900 Balance 51 Intake: IV 951 Output: Urine 700 Estimated Blood Loss 200 Other: Voiding Method Indwelling Catheter - Exam The patient is resting comfortably in his bed. He is alert and able to answer questions. The dressing over his left hip is intact. There is no drainage or strike through. There is mild swelling throughout the thigh. Femoral nerve function is intact. He is able to actively plantarflex and dorsiflex his ankle and his toes. - Labs CBC & Chem 7: 10/16/23 23:59 10/16/23 08:12 Labs: Abnormal Lab Results - Last 24 Hours (Table) 10/16/23 10/16/23 10/16/23 Range/Units 08:12 08:12 23:59 RBC 4.21 L 4.02 L (4.30-5.90) m/uL Hgb 12.8 L (13.0-17.5) gm/dL Neutrophils # 8.6 H (1.3-7.7) k/uL Lymphocytes # 0.7 L 0.6 L (1.0-4.8) k/uL Monocytes # 1.2 H (0-1.0) k/uL Carbon Dioxide 32 H (22-30) mmol/L Assessment and Plan Assessment: Postoperative day #1 status post left direct anterior hip hemiarthroplasty for displaced femoral neck fracture Plan: 1. Weight bear as tolerated on the operative extremity, up with assistance and a walker 2. DVT prophylaxis - will resume Eliquis today 3. 2 doses of post operative antibiotics 4. Leave surgical dressing in place 5. Internal medicine for willie-operative medical management 6. Physical therapy for gait training and mobilization 7. Dispo: Discharge planning and process. Will likely need discharge to SNF/REHAB.
[2023-10-17] MEDS: HYDROcodone/APAP 10-325MG 1 EACH TAB PO PRN (08:53)
[2023-10-17] MEDS: MULTIVITAMINS, THERA 1 EACH TAB PO SCH (09:05)
[2023-10-17] MEDS: APIXABAN 2.5 MG TABLET PO SCH (09:05)
--- NOTE | 2023-10-17 10:39 | CA ---
Transthoracic Echo Report Name: Matt Hines Age: 83 Gender: M : 1940 Exam Date: 10/16/2023 10:51 Exam Location: [facility] Ht (in): 72 Wt (lb): 196 Ordering Physician: Carrington Johnson MD ([id number]) Attending/Referring Phys: Check Airman Gissel Ivey RDCS Procedure CPT: Indications: chf Cardiac Hx: Technical Quality: Fair Contrast 1: Total Dose (mL): Contrast 2: Total Dose (mL): MEASUREMENTS (Male / Female) Normal Values 2D ECHO LV Diastolic Diameter PLAX 5.5 cm 4.2 - 5.9 / 3.9 - 5.3 cm LV Systolic Diameter PLAX 3.1 cm IVS Diastolic Thickness 1.3 cm 0.6 - 1.0 / 0.6 - 0.9 cm LVPW Diastolic Thickness 1.4 cm 0.6 - 1.0 / 0.6 - 0.9 cm LV Relative Wall Thickness 0.5 RV Internal Dim ED PLAX 2.6 cm LA Systolic Diameter LX 5.7 cm 3.0 - 4.0 / 2.7 - 3.8 cm LV Diastolic Volume MOD BP 72.4 cm??? 67 - 155 / 56 - 104 cm??? LV Systolic Volume MOD BP 31.0 cm??? 22 - 58 / 19 - 49 cm??? LV Ejection Fraction MOD BP 57.2 % >= 55 % LV Cardiac Index MOD BP 1606.9 cm???/min???m??? LV Diastolic Volume MOD 4C 82.4 cm??? LV Systolic Volume MOD 4C 39.9 cm??? LV Ejection Fraction MOD 4C 51.6 % LV Cardiac Index MOD 4C 1652.6 cm???/min???m??? LV Diastolic Length 4C 7.2 cm LV Systolic Length 4C 6.9 cm LV Diastolic Volume MOD 2C 61.5 cm??? LV Systolic Volume MOD 2C 22.9 cm??? LV Ejection Fraction MOD 2C 62.8 % LV Cardiac Index MOD 2C 1500.0 cm???/min???m??? LV Diastolic Length 2C 6.7 cm LV Systolic Length 2C 6.2 cm LA Volume 144.7 cm??? 18 - 58 / 22 - 52 cm??? LA Volume Index 67.7 cm???/m??? 16 - 28 cm???/m??? M-MODE Aortic Root Diameter MM 3.7 cm LA Systolic Diameter MM 4.4 cm LA Ao Ratio MM 1.2 AV Cusp Separation MM 1.8 cm DOPPLER AV Peak Velocity 174.5 cm/s AV Peak Gradient 12.2 mmHg AV Mean Velocity 139.1 cm/s AV Mean Gradient 8.1 mmHg AV Velocity Time Integral 39.8 cm AI Peak Velocity 463.1 cm/s AI Peak Gradient 85.8 mmHg AI Pressure Half Time 696.4 ms LVOT Peak Velocity 110.5 cm/s LVOT Peak Gradient 4.9 mmHg LVOT Velocity Time Integral 26.8 cm MV Area PHT 2.9 cm??? Mitral E Point Velocity 75.6 cm/s Mitral A Point Velocity 88.0 cm/s Mitral E to A Ratio 0.9 MV Deceleration Time 259.8 ms TR Peak Velocity 339.2 cm/s TR Peak Gradient 46.0 mmHg Right Ventricular Systolic Press 49.0 mmHg FINDINGS Left Ventricle Left ventricular ejection fraction is estimated at 60-65 %. Mildly increased septal wall thickness. Left ventricular cavity size normal. No obvious regional wall motion abnormalities. Right Ventricle Mild right ventricular dilatation. Moderate pulmonary hypertension. Right Atrium Mild right atrial dilatation. Left Atrium Severely increased left atrial diameter. Severely increased left atrial volume. Mildly increased left atrial area. Interatrial septum is aneurysmal. Mitral Valve Structurally normal mitral valve. Mitral valve thickened. Mitral annular calcification. Moderate mitral regurgitation. Aortic Valve Trileaflet aortic valve. No aortic stenosis. Mild aortic regurgitation. Tricuspid Valve Structurally normal tricuspid valve. Moderate tricuspid regurgitation. No tricuspid stenosis. Pulmonic Valve Structurally normal pulmonic valve. Trace pulmonic regurgitation. No pulmonic stenosis. Pericardium Trace pericardial effusion. Aorta Aorta at upper limits of normal. CONCLUSIONS Left ventricular ejection fraction is estimated at 60-65 %. No obvious regional wall motion abnormalities. Mild right ventricular dilatation. Moderate pulmonary hypertension. RVSP 50 mmHg Mitral annular calcification with moderate MR. Severe LA dilatation trace peridcardial effusion Previewed by: Dr Carrington Johnson (Electronically Signed) Final Date: 17 October 2023 10:38
--- NOTE | 2023-10-17 11:03 | P.PN ---
Subjective Progress Note Date: 10/17/23 Subjective: Patient seen and examined at bedside. No acute events overnight. Claims that he has pain is a lot improved. Has not gotten out of the bed yet. Fajardo catheter still in place. Pertinent positives and negatives as discussed above, a complete review of systems was performed and all other systems are negative. Vitals Signs Reviewed. General: Nontoxic, no distress, appears at stated age, Fajardo catheter in place Derm: Warm, dry, left hip dressing clean, dry, intact Head: Atraumatic, normocephalic, symmetric Eyes: EOMI, no lid lag, anicteric sclera Mouth: No lip lesion, mucus membranes moist Cardiovascular: S1S2 reg, no murmur Lungs: CTA bilateral, no rhonchi, no rales, no accessory muscle use Abdominal: Soft, nontender to palpation, no guarding, no appreciable organomeg miles Ext: No gross muscle atrophy, no edema, no contractures Neuro: CN II-XI grossly intact, no focal neuro deficits Psych: Alert, oriented, appropriate affect Data Reviewed Today: Pertinent Labs: Hemoglobin 12.8, WBC 10.6 Imaging: No new imaging Assessment and Plan: Mechanical fall Displaced left femoral neck fracture secondary to the fall, status post left direct anterior hip hemiarthroplasty Left parietal laceration of the scalp:Left parietal laceration of the scalp -Ortho note reviewed, probable discharge to rehab Pain control per orthopedic surgery, on [place] as needed, IV Dilaudid as needed, monitor for sedation -On senna nightly for bowel regimen, Eliquis 2.5 twice daily DVT prophylaxis Acute encephalopathy, likely delirium -Received Seroquel 25 p.o. last night -Delirium precautions Acute hypoxic respiratory failure -Wean oxygen, incentive spirometer Hypertensive urgency, resolved Amlodipine 2.5 mg p.o. daily Lisinopril 20 mg p.o. daily Atrial fibrillation, rate controlled: On Eliquis 2.5 twice daily Amiodarone 200 mg p.o. daily, metoprolol 25 twice daily -Monitor on telemetry CHF with preserved ejection fraction, not in exacerbation Coronary artery disease status post stent Metoprolol tartrate 25 mg p.o. twice daily Atorvastatin 20 mg p.o. at bedtime Lasix currently on hold, patient is euvolemic -Echocardiogram showed preserved EF, moderate pulmonary hypertension -Cardiology following -Patient has adequate oral intake, IV fluids discontinued History of BPH: Continue tamsulosin 4.4 mg p.o. daily Asthma: Continue Montelukast 10mg PO HS Thank you for allowing us to participate in the care of this pleasant patient. Do not hesitate to contact us with questions. Someone can be reached from the [facility] hospitalist group all hours of the day at [phone] or via perfect serve. Objective - Vital Signs Vital signs: Vital Signs Temp 97.4 F L 10/17/23 06:58 Pulse 64 10/17/23 06:58 Resp 16 10/17/23 06:58 BP 141/81 10/17/23 06:58 Pulse Ox 95 10/17/23 06:58 FiO2 Intake & Output 10/16/23 10/17/23 10/17/23 18:59 06:59 18:59 Intake Total 951 Output Total 900 Balance 51 Intake: IV 951 Output: Urine 700 Estimated Blood Loss 200 Other: Voiding Method Indwelling Catheter - Labs CBC & Chem 7: 10/16/23 23:59 10/16/23 08:12 Labs: Abnormal Lab Results - Last 24 Hours (Table) 10/16/23 10/16/23 Range/Units 08:12 23:59 RBC 4.21 L 4.02 L (4.30-5.90) m/uL Hgb 12.8 L (13.0-17.5) gm/dL Neutrophils # 8.6 H (1.3-7.7) k/uL Lymphocytes # 0.7 L 0.6 L (1.0-4.8) k/uL Monocytes # 1.2 H (0-1.0) k/uL
[2023-10-17 14:34] VITALS: RESP 17
--- NOTE | 2023-10-17 18:49 | P.CRDCN ---
History of Present Illness Consult date: 10/16/23 History of present illness: HISTORY OF PRESENTING ILLNESS 83-year-old male with PMH of atrial fibrillation, CAD s/p PCI, hypertension, dyslipidemia, CHF with preserved ejection fraction, thoracic aortic aneurysm presented to the ER after a mechanical fall. He was noticed to have a left hip fracture. He has been planned for a hip surgery. Cardiology was consulted for perioperative cardiac risk assessment ECG shows atrial fibrillation which is rate controlled Patient does not appear volume overloaded Hemoglobin 13, BUN 21, creatinine 1.16 REVIEW OF SYSTEMS 14 point review of system is negative except what is mentioned above in HPI. PHYSICAL EXAMINATION Vital signs reviewed. Head: Normocephalic. Eyes: Sclerae nonicteric. Neck: Brisk carotid upstroke, no jugular venous distention. Lungs: Clear to auscultation. Heart: Regular rate and rhythm, S1-S2, no S3, no murmur or rub. Abdomen: Soft nontender, positive bowel sounds. Extremities: No edema, intact distal pulses. Neuro: Alert, oritented, no focal deficits. Detailed neuro exam was not performed. ASSESSMENT Perioperative cardiac assessment for hip surgery Mechanical fall Left hip fracture CAD s/p PCI, prior history of HFpEF currently euvolemic Persistent atrial fibrillation, rate controlled Echocardiogram showed EF of 60%, no obvious wall motion abnormality, severe left atrial dilatation, moderate MR, moderate pulmonary hypertension RVSP 50 mmHg PLAN Patient's atrial fibrillation is rate controlled. He does not appear volume overloaded and is not having any new signs of acute coronary syndrome. Patient is at moderate risk for a moderate risk procedure. Can proceed from cardiovascular standpoint for the surgery. Further recommendations to follow Carrington Johnson MD, FACC, RPVI Thank you for allowing [facility] to participate in this patient's care. Feel free to reach out in case of any followup questions. Past Medical History Past Medical History: Atrial Fibrillation, Atrial Flutter, Asthma, Coronary Artery Disease (CAD), Cancer, Heart Failure, Hearing Disorder / Deafness, Hyperlipidemia, Hypertension, Prostate Disorder Additional Past Medical History / Comment(s): Hx basal cell, squamous cell lesions. Thoracic aortic aneurysm. Hearing aids. BPH. History of Any Multi-Drug Resistant Organisms: None Reported Past Surgical History: Appendectomy, Heart Catheterization, Hernia Repair Additional Past Surgical History / Comment(s): Bilat Cataracts, Cardioversion x2 - last 08/2020, LIP LESION REMOVED Past Anesthesia/Blood Transfusion Reactions: No Reported Reaction Additional Past Anesthesia/Blood Transfusion Reaction / Comment(s): no blood transfusions Past Psychological History: No Psychological Hx Reported Smoking Status: Never smoker - Past Family History Mother Family Medical History: No Reported History Medications and Allergies Home Medications Medication Instructions Recorded Confirmed Type Montelukast Sodium [Singulair] 10 mg PO HS@199901/16/19 10/15/23 History Metoprolol Tartrate 25 mg PO BID@799,199911/17/19 10/15/23 History Tamsulosin [Flomax] 0.4 mg PO DAILY@79911/17/19 10/15/23 History Amiodarone [Cordarone] 200 mg PO DAILY@79901/16/20 10/15/23 History Apixaban [Eliquis] 5 mg PO BID@799,199901/20/22 10/15/23 History amLODIPine [Norvasc] 2.5 mg PO DAILY@79901/20/22 10/15/23 History lisinopriL [Prinivil] 20 mg PO DAILY@79903/12/22 10/15/23 History Atorvastatin [Lipitor] 20 mg PO HS@199910/15/23 10/15/23 History Furosemide [Lasix] 20 mg PO DAILY@79910/15/23 10/15/23 History traMADol HCL 50 mg PO Q6H PRN 10/15/23 10/15/23 History Allergies Allergy/AdvReac Type Severity Reaction Status Date / Time avocado Allergy Itching in Verified 10/15/23 16:35 throat Physical Exam Vitals: Vital Signs Temp Pulse Resp BP Pulse Ox 10/17/23 14:16 98.8 F 61 17 125/71 93 L 10/17/23 06:58 97.4 F L 64 16 141/81 95 10/17/23 01:56 97.6 F 65 16 130/72 97 10/16/23 19:01 66 17 159/80 92 L Intake and Output 10/17/23 10/17/23 10/17/23 06:59 14:59 22:59 Other: Voiding Method Indwelling Catheter # Voids 0 Results 10/16/23 23:59 10/16/23 08:12 CBC 10/16/23 10/16/23 Range/Units 08:12 23:59 WBC 7.5 10.6 (3.8-10.6) k/uL RBC 4.21 L 4.02 L (4.30-5.90) m/uL Hgb 13.5 12.8 L (13.0-17.5) gm/dL Hct 40.5 39.0 (39.0-53.0) % Plt Count 188 172 (150-450) k/uL Current Medications Generic Name Dose Route Start Last Admin Trade Name Freq PRN Reason Stop Dose Admin Hydrocodone Bitart/Acetaminophen 1 each 10/15/23 18:03 10/17/23 04:05 Hydrocodone/Apap 5-325mg 1 Each Tab PO 1 each Q4HR PRN Administration Moderate Pain (Scale 4 to 6) Hydrocodone Bitart/Acetaminophen 1 each 10/16/23 18:33 10/17/23 14:35 Hydrocodone/Apap 10-325mg 1 Each Tab PO 1 each Q6H PRN Administration Pain Scale 6 to 10 Amiodarone HCl 200 mg 10/16/23 08:00 10/17/23 09:05 Amiodarone 200 Mg Tab PO 200 mg DAILY@0800 JOSE Administration Amlodipine Besylate 2.5 mg 10/16/23 08:00 10/17/23 09:05 Amlodipine 2.5 Mg Tab PO 2.5 mg DAILY@0800 JOSE Administration Apixaban 2.5 mg 10/17/23 09:00 10/17/23 09:05 Apixaban 2.5 Mg Tablet PO 2.5 mg BID JOSE Administration Protocol Atorvastatin Calcium 20 mg 10/16/23 20:00 10/16/23 23:10 Atorvastatin 20 Mg Tab PO 20 mg HS@2000 JOSE Administration Diazepam 5 mg 10/15/23 19:42 Diazepam 5 Mg/Ml 2 Ml Inj IVP 10/20/23 19:41 ONCE PRN Muscle Spasm Hydromorphone HCl 1 mg 10/15/23 18:03 10/16/23 12:46 Hydromorphone 1 Mg/Ml 1 Ml Syringe IVP 1 mg Q3HR PRN Administration Severe Pain (Scale 7 to 10) Hydromorphone HCl 0.5 mg 10/16/23 18:33 Hydromorphone 0.5 Mg/0.5 Ml Syringe IVP Q3HR PRN Pain Scale 7 to 10 Lisinopril 20 mg 10/16/23 09:00 10/17/23 09:05 Lisinopril 20 Mg Tab PO 20 mg DAILY JOSE Administration Magnesium Hydroxide 2,400 mg 10/16/23 18:33 Magnesium Hydroxide 2,400 Mg/30 Ml Cup PO DAILY PRN Constipation Metoprolol Tartrate 25 mg 10/16/23 08:00 10/17/23 09:05 Metoprolol Tartrate 25 Mg Tab PO 25 mg BID@799,1999 [facility] Administration Montelukast Sodium 10 mg 10/16/23 20:00 10/16/23 23:09 Montelukast 10 Mg Tab PO 10 mg HS@1999 [facility] Administration Multivitamins 1 each 10/17/23 12:00 10/17/23 09:05 Multivitamins, Thera 1 Each Tab PO 1 each DAILY@1200 [facility] Administration Naloxone HCl 0.2 mg 10/15/23 18:03 Naloxone 0.4 Mg/Ml 1 Ml Vial IV Q2M PRN Opioid Reversal Naloxone HCl 0.2 mg 10/16/23 18:33 Naloxone 0.4 Mg/Ml 1 Ml Vial IV Q2M PRN Opioid Reversal Ondansetron HCl 4 mg 10/16/23 18:33 Ondansetron 4 Mg/2 Ml Vial IVP Q6HR PRN Nausea And Vomiting Senna/Docusate Sodium 2 each 10/16/23 21:00 10/16/23 23:09 Sennosides-Docusate Sodium 1 Each Tab PO 2 each HS JOSE Administration Tamsulosin HCl 0.4 mg 10/16/23 08:00 10/17/23 09:05 Tamsulosin 0.4 Mg Cap.Er.24h PO 0.4 mg DAILY@0800 [facility] Administration Intake and Output 10/17/23 10/17/23 10/17/23 06:59 14:59 22:59 Other: Voiding Method Indwelling Catheter # Voids 0 10/16/23 23:59 10/16/23 08:12
--- NOTE | 2023-10-17 18:51 | P.PN ---
Subjective Progress Note Date: 10/17/23 HISTORY OF PRESENTING ILLNESS 83-year-old male with PMH of atrial fibrillation, CAD s/p PCI, hypertension, dyslipidemia, CHF with preserved ejection fraction, thoracic aortic aneurysm presented to the ER after a mechanical fall. He was noticed to have a left hip fracture. He has been planned for a hip surgery. Cardiology was consulted for perioperative cardiac risk assessment ECG shows atrial fibrillation which is rate controlled Patient does not appear volume overloaded Hemoglobin 13, BUN 21, creatinine 1.16 Progress note Patient underwent surgery yesterday. He is doing well from cardiovascular standpoint. His atrial fibrillation is rate controlled, no signs of congestive heart failure at present. PHYSICAL EXAMINATION Vital signs reviewed. Head: Normocephalic. Eyes: Sclerae nonicteric. Neck: Brisk carotid upstroke, no jugular venous distention. Lungs: Clear to auscultation. Heart: Regular rate and rhythm, S1-S2, no S3, no murmur or rub. Abdomen: Soft nontender, positive bowel sounds. Extremities: No edema, intact distal pulses. Neuro: Alert, oritented, no focal deficits. Detailed neuro exam was not performed. ASSESSMENT Perioperative cardiac assessment for hip surgery Mechanical fall Left hip fracture CAD s/p PCI, prior history of HFpEF currently euvolemic Persistent atrial fibrillation, rate controlled Echocardiogram showed EF of 60%, no obvious wall motion abnormality, severe left atrial dilatation, moderate MR, moderate pulmonary hypertension RVSP 50 mmHg PLAN Continue current cardiac medications, amiodarone, Eliquis, metoprolol, amlodipine. Patient has been maintained on amlodipine for long duration without any success of maintaining him in sinus rhythm. 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 Further recommendations to follow Objective - Vital Signs Vital signs: Vital Signs Temp 98.8 F 10/17/23 14:16 Pulse 61 10/17/23 14:16 Resp 17 10/17/23 14:16 BP 125/71 10/17/23 14:16 Pulse Ox 93 L 10/17/23 14:16 FiO2 Intake & Output 10/16/23 10/17/23 10/17/23 18:59 06:59 18:59 Intake Total 951 Output Total 900 Balance 51 Intake: IV 951 Output: Urine 700 Estimated Blood Loss 200 Other: Voiding Method Indwelling Catheter Indwelling Catheter # Voids 0 - Labs CBC & Chem 7: 08/03/24 23:59 10/16/23 08:12 Labs: Abnormal Lab Results - Last 24 Hours (Table) 10/16/23 10/16/23 Range/Units 08:12 23:59 RBC 4.21 L 4.02 L (4.30-5.90) m/uL Hgb 12.8 L (13.0-17.5) gm/dL Neutrophils # 8.6 H (1.3-7.7) k/uL Lymphocytes # 0.7 L 0.6 L (1.0-4.8) k/uL Monocytes # 1.2 H (0-1.0) k/uL
[2023-10-18 02:19] VITALS: BP 118/80; PULSE 69; TEMP 98.4
== END 2023-10-20 08:00 | disposition short-term general hospital (02) | DRG 521 ==
LOC: EC 15:26 → SUPCPDRO 15:26 → 4SSUR 18:03
PROVIDERS: ADMIT Orthopaedic Surgery; ATTEND Orthopaedic Surgery
PROC: 0SRS0J9 Replacement of Left Hip Joint, Femoral Surface with Synthetic Substitute, Cemented, Open Approach (ICD-10-PCS; principal; 2023-10-15)
PROC: 3E0T3BZ Introduction of Anesthetic Agent into Peripheral Nerves and Plexi, Percutaneous Approach (ICD-10-PCS; 2023-10-15)
PROC: 0HQ0XZZ Repair Scalp Skin, External Approach (ICD-10-PCS; 2023-10-15)
DX: S72.012A Unspecified intracapsular fracture of left femur, initial encounter for closed fracture (principal); G93.41 Metabolic encephalopathy; J96.01 Acute respiratory failure with hypoxia; J98.11 Atelectasis; I50.32 Chronic diastolic (congestive) heart failure; F05 Delirium due to known physiological condition; I48.19 Other persistent atrial fibrillation; R44.3 Hallucinations, unspecified; I48.92 Unspecified atrial flutter; I31.39 Other pericardial effusion (noninflammatory); W19.XXXA Unspecified fall, initial encounter; E78.5 Hyperlipidemia, unspecified; I16.0 Hypertensive urgency; I49.1 Atrial premature depolarization; I11.0 Hypertensive heart disease with heart failure; I25.10 Atherosclerotic heart disease of native coronary artery without angina pectoris; H91.93 Unspecified hearing loss, bilateral; H91.13 Presbycusis, bilateral; G93.89 Other specified disorders of brain; I44.0 Atrioventricular block, first degree; I27.20 Pulmonary hypertension, unspecified; K59.00 Constipation, unspecified; J45.909 Unspecified asthma, uncomplicated; I08.3 Combined rheumatic disorders of mitral, aortic and tricuspid valves; N40.0 Benign prostatic hyperplasia without lower urinary tract symptoms; S01.01XA Laceration without foreign body of scalp, initial encounter; I71.20 Thoracic aortic aneurysm, without rupture, unspecified; Z79.01 Long term (current) use of anticoagulants; Z79.899 Other long term (current) drug therapy; Z85.828 Personal history of other malignant neoplasm of skin; Z95.5 Presence of coronary angioplasty implant and graft; Y92.511 Restaurant or cafe as the place of occurrence of the external cause; W01.198A Fall on same level from slipping, tripping and stumbling with subsequent striking against other object, initial encounter; Z87.19 Personal history of other diseases of the digestive system; Z98.42 Cataract extraction status, left eye; Z98.41 Cataract extraction status, right eye
CPT/HCPCS: 12005; 36415; 51702; 70450; 71045; 72125; 73502; 80048; 80053; 85025; 85610; 90471; 90715; 93005; 93306; 96365; 96372; 96375; 96376; 99285

== ENCOUNTER → 2023-11-02 | Outpatient (CLI) | payer MEDICARE, MEDICAID | LOC: LABPRL 12:00 | PROVIDERS: ATTEND Internal Medicine Geriatric Medicine | CPT/HCPCS: 87086 ==

== ENCOUNTER 2023-11-16 08:21 | Inpatient (IN) | payer MEDICARE, MEDICAID ==
--- NOTE | 2023-11-16 08:31 | ED ---
General Adult HPI - General Stated complaint: AMS Time Seen by Provider: 11/16/23 08:22 Source: patient, EMS, old records reviewed Mode of arrival: EMS Limitations: no limitations - History of Present Illness Initial comments: Patient is an 83-year-old male present to the emergency department with concern for low-grade fevers. Patient presents from nursing facility. Patient is there secondary to hip fracture 1 month ago. Patient had a fall trying to get out of bed today. Patient states he was trying to do too much on his own. Patient does admit to having some low-grade fevers. Patient also admits to urinary frequency however states that is chronic and unchanged. No abdominal pain. No upper respiratory symptoms. - Related Data Home Medications Medication Instructions Recorded Confirmed Montelukast Sodium [Singulair] 10 mg PO HS@199901/16/19 10/15/23 Metoprolol Tartrate 25 mg PO BID@08,199911/17/19 10/15/23 Tamsulosin [Flomax] 0.4 mg PO DAILY@79911/17/19 10/15/23 Amiodarone [Cordarone] 200 mg PO DAILY@79901/16/20 10/15/23 Apixaban [Eliquis] 5 mg PO BID@799,199901/20/22 10/15/23 amLODIPine [Norvasc] 2.5 mg PO DAILY@79901/20/22 10/15/23 lisinopriL [Prinivil] 20 mg PO DAILY@79903/12/22 10/15/23 Atorvastatin [Lipitor] 20 mg PO HS@199910/15/23 10/15/23 Furosemide [Lasix] 20 mg PO DAILY@79910/15/23 10/15/23 traMADol HCL 50 mg PO Q6H PRN 10/15/23 10/15/23 HYDROcodone/APAP 5-325MG [[place] 1 tab PO Q6H PRN 11/16/23 11/16/23 5-325] Midodrine HCl [ProAmantine] 2.5 mg PO BID PRN 11/16/23 11/16/23 Spironolactone [Aldactone] 25 mg PO DAILY@79911/16/23 11/16/23 Allergies Allergy/AdvReac Type Severity Reaction Status Date / Time avocado Allergy Itching in Verified 11/16/23 10:40 throat Review of Systems ROS Statement: Those systems with pertinent positive or pertinent negative responses have been documented in the HPI. ROS Other: All systems not noted in ROS Statement are negative. Constitutional: Reports: as per HPI Eyes: Denies: eye pain ENT: Denies: ear pain Respiratory: Denies: cough, dyspnea Cardiovascular: Denies: chest pain Neurological: Reports: weakness, confusion (Patient denies) Past Medical History Past Medical History: Atrial Fibrillation, Atrial Flutter, Asthma, Coronary Artery Disease (CAD), Cancer, Heart Failure, Hearing Disorder / Deafness, Hyperlipidemia, Hypertension, Prostate Disorder Additional Past Medical History / Comment(s): Hx basal cell, squamous cell lesions. Thoracic aortic aneurysm. Hearing aids. BPH. History of Any Multi-Drug Resistant Organisms: None Reported Past Surgical History: Appendectomy, Heart Catheterization, Hernia Repair Additional Past Surgical History / Comment(s): Bilat Cataracts, Cardioversion x2 - last 08/2020, LIP LESION REMOVED Past Anesthesia/Blood Transfusion Reactions: No Reported Reaction Additional Past Anesthesia/Blood Transfusion Reaction / Comment(s): no blood transfusions Past Psychological History: No Psychological Hx Reported Smoking Status: Never smoker - Past Family History Mother Family Medical History: No Reported History General Exam Limitations: no limitations General appearance: alert, in no apparent distress Head exam: Present: atraumatic, normocephalic Eye exam: Present: normal appearance, PERRL, EOMI ENT exam: Present: normal oropharynx Neck exam: Present: normal inspection. Absent: tenderness, meningismus Respiratory exam: Present: normal lung sounds bilaterally Cardiovascular Exam: Present: regular rate, normal rhythm GI/Abdominal exam: Present: soft. Absent: distended, tenderness, guarding Extremities exam: Present: normal inspection, full ROM. Absent: tenderness Neurological exam: Present: alert, oriented X3, CN II-XII intact. Absent: motor sensory deficit Expanded Neurological exam: Present: protecting the airway Patient oriented to: Present: person, place, time Speech: Present: fluid speech Cranial nerves: EOM's Intact: Normal Motor strength exam: RUE: 5, LUE: 5, RLE: 5, LLE: 5 Eye Response: (4) open spontaneously Motor Response: (6) obeys commands Verbal Response: (5) oriented Psychiatric exam: Present: normal affect, normal mood Skin exam: Present: normal color Course Vital Signs 11/16/23 11/16/23 08:23 10:31 Temperature 99.6 F Pulse Rate 76 76 Respiratory 20 17 Rate Blood Pressure 130/77 121/65 O2 Sat by Pulse 94 L 34 L Oximetry EKG Findings - EKG Results: EKG: interpreted by ANIVAL (First-degree AV block with a AL of 226), sinus rhythm, normal axis, normal QRS, normal ST/T Medical Decision Making - Medical Decision Making Was pt. sent in by a medical professional or institution (, PA, SAW STRAIGHTENER, urgent care, hospital, or halfway...) When possible be specific @ -Patient was sent from nursing facility Did you speak to anyone other than the patient for history (EMS, parent, family, police, friend...)? What history was obtained from this source @ -Family arrives and provides additional history the patient did not have his medications today Did you review nursing and triage notes (agree or disagree)? Why? @ -I reviewed and agree with nursing and triage notes Were old charts reviewed (outside hosp., previous admission, EMS record, old EK G, old radiological studies, urgent care reports/EKG's, halfway records)? Report findings @ -Previous admission reviewed Differential Diagnosis (chest pain, altered mental status, abdominal pain women, abdominal pain men, vaginal bleeding, weakness, fever, dyspnea, syncope, headache, dizziness, GI bleed, back pain, seizure, CVA, palpatations, mental health, musculoskeletal)? @ -Differential Altered Mental Status: Hypoglycemia, DKA, hypercapnia, ETOH, overdose, CO poisoning, trauma, myxedema coma, HTN encephalopathy, infection, encephalitis, psychosis, intercranial hemorrhage, hepatic encephalopathy, meningitis, CVA, this is not meant to be an all-inclusive list EKG interpreted by me (3pts min.). @ -As above X-rays interpreted by me (1pt min.). @ -Chest x-ray without acute abnormality CT interpreted by me (1pt min.). @ -CT brain without acute intracranial abnormality. Soft tissue changes recommended MRI U/S interpreted by me (1pt. min.). @ -None done What testing was considered but not performed or refused? (CT, X-rays, U/S, labs)? Why? @ -None What meds were considered but not given or refused? Why? @ -None Did you discuss the management of the patient with other professionals (professionals i.e. , PA, SAW STRAIGHTENER, lab, RT, psych nurse, social group worker, rougher helper, teacher, chief sustainability officer, continuous pillowcase cutter)? Give summary @ -Case discussed with Dr. Rogers will admit covering Dr. Harris Was smoking cessation discussed for >3mins.? @ -No Was critical care preformed (if so, how long)? @ -No Were there social determinants of health that impacted care today? How? (Homelessness, low income, unemployed, alcoholism, drug addiction, transportation, low edu. Level, literacy, decrease access to med. care, custodial, rehab)? @ -No Was there de-escalation of care discussed even if they declined (Discuss DNR or withdrawal of care, Hospice)? DNR status @ -No What co-morbidities impacted this encounter? (DM, HTN, Smoking, COPD, CAD, Cancer, CVA, ARF, Chemo, Hep., AIDS, mental health diagnosis, sleep apnea, morbid obesity)? @ -Resides in nursing facility Was patient admitted / discharged? Hospital course, mention meds given and route, prescriptions, significant lab abnormalities, going to OR and other pertinent info. @ -Patient and family updated on results, specifically CT scan. Patient reevaluated and resting comfortably in bed. Also updated on plan. Patient will be admitted with IV antibiotics for urinary tract infection and further evaluation. Admission orders written. Undiagnosed new problem with uncertain prognosis? @ -No Drug Therapy requiring intensive monitoring for toxicity (Heparin, Nitro, Insulin, Cardizem)? @ -No Were any procedures done? @ -No Diagnosis/symptom? @ -Urinary tract infection Acute, or Chronic, or Acute on Chronic? @ -Acute Uncomplicated (without systemic symptoms) or Complicated (systemic symptoms)? @ -Default Side effects of treatment? @ -No Exacerbation, Progression, or Severe Exacerbation? @ -No Poses a threat to life or bodily function? How? (Chest pain, USA, MT, pneumonia, PE, COPD, DKA, ARF, appy, cholecystitis, CVA, Diverticulitis, Homicidal, Suicidal, threat to staff... and all critical care pts) @ -No - Lab Data Result diagrams: 11/16/23 08:43 11/16/23 08:43 Lab Results 11/16/23 11/16/23 11/16/23 Range/Units 08:43 08:43 08:43 WBC 13.8 H (3.8-10.6) k/uL RBC 3.37 L (4.30-5.90) m/uL Hgb 10.5 L (13.0-17.5) gm/dL Hct 31.8 L (39.0-53.0) % MCV 94.3 (80.0-100.0) fL MCH 31.3 (25.0-35.0) pg MCHC 33.2 (31.0-37.0) g/dL RDW 13.6 (11.5-15.5) % Plt Count 216 (150-450) k/uL MPV 8.7 Neutrophils % 82 % Lymphocytes % 6 % Monocytes % 8 % Eosinophils % 1 % Basophils % 0 % Neutrophils # 11.4 H (1.3-7.7) k/uL Lymphocytes # 0.8 L (1.0-4.8) k/uL Monocytes # 1.1 H (0-1.0) k/uL Eosinophils # 0.2 (0-0.7) k/uL Basophils # 0.0 (0-0.2) k/uL PT 11.8 (10.0-12.5) sec INR 1.1 (<1.2) APTT 28.3 (22.0-30.0) sec Sodium 134 L (137-145) mmol/L Potassium 4.4 (3.5-5.1) mmol/L Chloride 105 (98-107) mmol/L Carbon Dioxide 23 (22-30) mmol/L Anion Gap 6 mmol/L BUN 24 H (9-20) mg/dL Creatinine 1.31 H (0.66-1.25) mg/dL Est GFR (CKD-EPI)AfAm 57 (>60 ml/min/1.73 sqM) Est GFR (CKD-EPI)NonAf 50 (>60 ml/min/1.73 sqM) Glucose 103 H (74-99) mg/dL Plasma Lactic Acid Richar (0.7-2.0) mmol/L Calcium 8.8 (8.4-10.2) mg/dL Magnesium 1.8 (1.6-2.3) mg/dL Total Bilirubin 1.4 H (0.2-1.3) mg/dL AST 27 (17-59) U/L ALT 13 (4-49) U/L Alkaline Phosphatase 89 (38-126) U/L Troponin I (0.000-0.034) ng/mL Total Protein 5.9 L (6.3-8.2) g/dL Albumin 3.3 L (3.5-5.0) g/dL Urine Color Urine Appearance (Clear) Urine pH (5.0-8.0) Ur Specific [place] (1.001-1.035) Urine Protein (Negative) Urine Glucose (UA) (Negative) Urine Ketones (Negative) Urine Blood (Negative) Urine Nitrite (Negative) Urine Bilirubin (Negative) Urine Urobilinogen (<2.0) mg/dL Ur Leukocyte Esterase (Negative) Urine RBC (0-5) /hpf Urine WBC (0-5) /hpf Urine Bacteria (None) /hpf Hyaline Casts (0-2) /lpf Urine Mucus (None) /hpf Influenza Type A (PCR) (Not Detectd) Influenza Type B (PCR) (Not Detectd) RSV (PCR) (Not Detectd) SARS-CoV-2 (PCR) (Not Detectd) 11/16/23 11/16/23 11/16/23 Range/Units 08:43 08:43 08:43 WBC (3.8-10.6) k/uL RBC (4.30-5.90) m/uL Hgb (13.0-17.5) gm/dL Hct (39.0-53.0) % MCV (80.0-100.0) fL MCH (25.0-35.0) pg MCHC (31.0-37.0) g/dL RDW (11.5-15.5) % Plt Count (150-450) k/uL MPV Neutrophils % % Lymphocytes % % Monocytes % % Eosinophils % % Basophils % % Neutrophils # (1.3-7.7) k/uL Lymphocytes # (1.0-4.8) k/uL Monocytes # (0-1.0) k/uL Eosinophils # (0-0.7) k/uL Basophils # (0-0.2) k/uL PT (10.0-12.5) sec INR (<1.2) APTT (22.0-30.0) sec Sodium (137-145) mmol/L Potassium (3.5-5.1) mmol/L Chloride (98-107) mmol/L Carbon Dioxide (22-30) mmol/L Anion Gap mmol/L BUN (9-20) mg/dL Creatinine (0.66-1.25) mg/dL Est GFR (CKD-EPI)AfAm (>60 ml/min/1.73 sqM) Est GFR (CKD-EPI)NonAf (>60 ml/min/1.73 sqM) Glucose (74-99) mg/dL Plasma Lactic Acid Richar 1.0 (0.7-2.0) mmol/L Calcium (8.4-10.2) mg/dL Magnesium (1.6-2.3) mg/dL Total Bilirubin (0.2-1.3) mg/dL AST (17-59) U/L ALT (4-49) U/L Alkaline Phosphatase (38-126) U/L Troponin I 0.035 H* (0.000-0.034) ng/mL Total Protein (6.3-8.2) g/dL Albumin (3.5-5.0) g/dL Urine Color Light Yellow Urine Appearance Cloudy (Clear) Urine pH 5.5 (5.0-8.0) Ur Specific [place] 1.013 (1.001-1.035) Urine Protein 1+ H (Negative) Urine Glucose (UA) Negative (Negative) Urine Ketones 1+ H (Negative) Urine Blood Small H (Negative) Urine Nitrite Negative (Negative) Urine Bilirubin Negative (Negative) Urine Urobilinogen <2.0 (<2.0) mg/dL Ur Leukocyte Esterase Moderate H (Negative) Urine RBC 1 (0-5) /hpf Urine WBC 72 H (0-5) /hpf Urine Bacteria Rare H (None) /hpf Hyaline Casts 2 (0-2) /lpf Urine Mucus Rare H (None) /hpf Influenza Type A (PCR) (Not Detectd) Influenza Type B (PCR) (Not Detectd) RSV (PCR) (Not Detectd) SARS-CoV-2 (PCR) (Not Detectd) 11/16/23 Range/Units 08:43 WBC (3.8-10.6) k/uL RBC (4.30-5.90) m/uL Hgb (13.0-17.5) gm/dL Hct (39.0-53.0) % MCV (80.0-100.0) fL MCH (25.0-35.0) pg MCHC (31.0-37.0) g/dL RDW (11.5-15.5) % Plt Count (150-450) k/uL MPV Neutrophils % % Lymphocytes % % Monocytes % % Eosinophils % % Basophils % % Neutrophils # (1.3-7.7) k/uL Lymphocytes # (1.0-4.8) k/uL Monocytes # (0-1.0) k/uL Eosinophils # (0-0.7) k/uL Basophils # (0-0.2) k/uL PT (10.0-12.5) sec INR (<1.2) APTT (22.0-30.0) sec Sodium (137-145) mmol/L Potassium (3.5-5.1) mmol/L Chloride (98-107) mmol/L Carbon Dioxide (22-30) mmol/L Anion Gap mmol/L BUN (9-20) mg/dL Creatinine (0.66-1.25) mg/dL Est GFR (CKD-EPI)AfAm (>60 ml/min/1.73 sqM) Est GFR (CKD-EPI)NonAf (>60 ml/min/1.73 sqM) Glucose (74-99) mg/dL Plasma Lactic Acid Rich[place] (0.7-2.0) mmol/L Calcium (8.4-10.2) mg/dL Magnesium (1.6-2.3) mg/dL Total Bilirubin (0.2-1.3) mg/dL AST (17-59) U/L ALT (4-49) U/L Alkaline Phosphatase (38-126) U/L Troponin I (0.000-0.034) ng/mL Total Protein (6.3-8.2) g/dL Albumin (3.5-5.0) g/dL Urine Color Urine Appearance (Clear) Urine pH (5.0-8.0) Ur Specific [place] (1.001-1.035) Urine Protein (Negative) Urine Glucose (UA) (Negative) Urine Ketones (Negative) Urine Blood (Negative) Urine Nitrite (Negative) Urine Bilirubin (Negative) Urine Urobilinogen (<2.0) mg/dL Ur Leukocyte Esterase (Negative) Urine RBC (0-5) /hpf Urine WBC (0-5) /hpf Urine Bacteria (None) /hpf Hyaline Casts (0-2) /lpf Urine Mucus (None) /hpf Influenza Type A (PCR) Not Detected (Not Detectd) Influenza Type B (PCR) Not Detected (Not Detectd) RSV (PCR) Not Detected (Not Detectd) SARS-CoV-2 (PCR) Not Detected (Not Detectd) Disposition Clinical Impression: Urinary tract infection Disposition: ADMITTED IP TO THIS HOSP Is patient prescribed a controlled substance at d/c from ED?: No Referrals: Francis Reyes MD [Primary Care Provider] - 1-2 days Time of Disposition: 10:47
[2023-11-16 08:59] LABS: Basophils % (A) 0 %; Eosinophils # (A) 0.2 k/uL (0-0.7); Eosinophils % (A) 1 %; HCT 31.8 % (39.0-53.0); HGB 10.5 gm/dL (13.0-17.5); Lymphocytes # (A) 0.8 k/uL (1.0-4.8); Lymphocytes % (A) 6 %; MCH 31.3 pg (25.0-35.0); MCHC 33.2 g/dL (31.0-37.0); MCV 94.3 fL (80.0-100.0); Mean Platelet Volume 8.7; Monocytes # (A) 1.1 k/uL (0-1.0); Monocytes % (A) 8 %; Neutrophils # (A) 11.4 k/uL (1.3-7.7); Neutrophils % (A) 82 %; Platelet Count 216 k/uL (150-450); RBC 3.37 m/uL (4.30-5.90); RDW 13.6 % (11.5-15.5); WBC 13.8 k/uL (3.8-10.6)
[2023-11-16 09:06] LABS: INR 1.1 (<1.2); Partial Thromboplastin Time 28.3 sec (22.0-30.0); Prothrombin Time 11.8 sec (10.0-12.5)
[2023-11-16 09:13] LABS: ALT 13 U/L (4-49); AST 27 U/L (17-59); African American GFR (CKD) 57 (>60 ml/min/1.73 sqM); Albumin 3.3 g/dL (3.5-5.0); Alkaline Phosphatase 89 U/L (38-126); Anion Gap 6 mmol/L; Blood Urea Nitrogen 24 mg/dL (9-20); Calcium 8.8 mg/dL (8.4-10.2); Carbon Dioxide 23 mmol/L (22-30); Chloride 105 mmol/L (98-107); Glucose 103 mg/dL (74-99); Magnesium 1.8 mg/dL (1.6-2.3); Non-African American GFR(CKD) 50 (>60 ml/min/1.73 sqM); Potassium 4.4 mmol/L (3.5-5.1); Sodium 134 mmol/L (137-145); Total Bilirubin 1.4 mg/dL (0.2-1.3); Total Protein 5.9 g/dL (6.3-8.2)
--- NOTE | 2023-11-16 09:18 | XR ---
EXAMINATION TYPE: XR chest 2V DATE OF EXAM: 11/16/2023 COMPARISON: 10/15/2023 TECHNIQUE: PA and lateral views submitted. HISTORY: Weakness FINDINGS: Heart enlarged and there is left lower lobe infiltrate. Chronic rib deformities, arthropathy and shou lder degenerative changes spine. Ectasia and atherosclerotic change of the aorta. No overt failure. N o pneumothorax. Tiny left pleural effusion. IMPRESSION: 1. Stable left lower lobe atelectasis or infiltrate.
--- NOTE | 2023-11-16 09:22 | CT ---
EXAMINATION TYPE: CT brain wo con DATE OF EXAM: 11/16/2023 COMPARISON: 10/15/2023 HISTORY: Weakness. CT DLP: 1185.4 mGycm Automated exposure control for dose reduction was used. FINDINGS: Moderate degenerative changes hypoattenuation in the white matter most remote microvascular ischemia. No midline shift or mass effect. Calvarium grossly intact. Craniocervical junction is maintained. Se lla turcica normal. Tiny hypodensities involving the basal ganglia too small to characterize and may represent prominent [place]chow Davis spaces or tiny remote linear infarct. Orbits are symmetric. Mild ch anges of chronic sinusitis. 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 There is a prominent soft tissue posterior to the odontoid could represent a prominent pannus. Aneurysm not excluded. Recommend follow-up MRI. 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 NO ACUTE HEMORRHAGE. PROMINENT SOFT TISSUE DENSITY POSTERIOR TO THE ATLANTOAXIAL JOINT MAY REPRESENT A PROMINENT PANNUS. 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 RECOMMEND MRI/MRA FOR FURTHER EVALUATION.
[2023-11-16 10:15] LABS: Appearance,Urine Cloudy (Clear); Bacteria,Urine Rare /hpf; Bilirubin,Urine Negative (Negative); Blood,Urine Small (Negative); Color,Urine Light Yellow; Glucose,Urine (UA) Negative (Negative); Hyaline Casts,Urine 2 /lpf (0-2); Ketones,Urine 1+ (Negative); Leukocyte Esterase,Urine Moderate (Negative); Mucus,Urine Rare /hpf; Nitrite,Urine Negative (Negative); PH, Urine 5.5 (5.0-8.0); Protein,Urine 1+ (Negative); RBC,Urine 1 /hpf (0-5); Specific Gravity,Urine 1.013 (1.001-1.035); Urobilinogen,Urine <2.0 mg/dL (<2.0); WBC,Urine 72 /hpf (0-5)
[2023-11-16] MEDS: ACETAMINOPHEN TAB 500 MG TAB PO STA (10:24)
[2023-11-16] MEDS ORDERED: ACETAMINOPHEN TAB 325 MG TAB PO PRN (10:48)
[2023-11-16] MEDS ORDERED: NALOXONE 0.4 MG/ML 1 ML VIAL IV PRN (10:48)
[2023-11-16] MEDS ORDERED: HYDROcodone/APAP 5-325MG 1 EACH TAB PO PRN (10:50)
[2023-11-16] MEDS ORDERED: traMADol 50 MG TAB PO PRN (10:50)
[2023-11-16] MEDS ORDERED: MIDODRINE 5 MG TAB PO PRN (10:50)
[2023-11-16] MEDS: SODIUM CHLORIDE 0.9% 1,000 ML IV STA (11:21)
[2023-11-16] MEDS: TAMSULOSIN 0.4 MG CAP.ER.24H PO SCH (12:13)
[2023-11-16] MEDS: FUROSEMIDE 20 MG TAB PO SCH (16:10)
--- NOTE | 2023-11-16 18:37 | P.HPIM ---
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 Chronic stable medical condition include atrial flutter fibrillation, asthma, CAD, CHF, hard of hearing, hypertension hyperlipidemia prostate disorder, thoracic arctic aneurysm. Patient lives at [facility]. Normally uses a walker. Beginning of October patient underwent a fracture of the left hip with surgical intervention. Has been using a wheelchair lately because of gets wobbly. Today patient was try to get in the wheelchair the brakes were not on and he fell. Appetite is fair. Urine stream is a bit slow. [place] to have UTI in the ER started on ceftriaxone. Patient denies any chest pain. Patient has some chron ic lower extremity edema. To 65%. Moderate mitral regurgitation. Moderate tricuspid regurgitation. Review of systems: GEN.: Tired EYES: None HEENT: Hard of hearing NECK: None RESPIRATORY: None CARDIOVASCULAR: Chronic edema GASTROINTESTINAL: None GENITOURINARY: deCreased urine stream. MUSCULOSKELETAL: Joint pains e LYMPHATICS: None HEMATOLOGICAL: None PSYCHIATRY: None NEUROLOGICAL: Using a walker/wheelchair Social history: Currently living in [facility] living [facility]. No smoking. 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 Physical examination: VITAL SIGNS: 99.6, 76, 20, 121/65, 94% room air GENERAL: BMI 24.3, reclining bed awake slightly tired appearing. EYES: Pupils equal. Conjunctiva yvonne l. HEENT: External appearance of nose and ears normal, oral cavity grossly normal. Decrease in hearing NECK: JVD not raised; masses not palpable. HEART: First and second heart sounds are normal; edema present. LUNGS: Respiratory rate normal; clear to auscultation. ABDOMEN: Soft, nontender, liver spleen not palpable, no masses palpable. External Fajardo catheter PSYCH: Alert and oriented x3; mood and affect yvonne l. MUSCULOSKELETAL:No Clubbing/cyanosis;muscles-grossly intact. OA NEUROLOGICAL: Cranial nerves grossly intact; no facial asymmetry, power and sensation grossly intact. LYMPHATICS: No lymph nodes palpable in the axilla and neck INVESTIGATIONS, reviewed in the clinical context: November 16, 2023: White count 13.8 hemoglobin 10.5 platelets 216 potassium 4.4 BUN 24 creatinine 1.31 Troponin I 0.035, 0.026, 0.018 UA: Moderate [place] Estrace WBC 72 bacteria rare EKG tracing personally reviewed by me-normal sinus rhythm. Poor R wave progression anterior lead CT scan brain: Chronic changes. 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 Not excluded. Chest x-ray film personally reviewed by me-cardiomegaly Assessment plan: -Acute UTI with cystitis, likely causing asthenia weakness leading to fall IV ceftriaxone -Chronic congestive heart failure from diastolic dysfunction EF 60 to 65%. Lasix -Chronic gait dysfunction does use a walker/wheelchair -Hard of hearing -Moderate mitral and tricuspid regurgitation -Paroxysmal atrial fibrillation currently in sinus rhythm Decrease amiodarone to 100 mg a day. Eliquis changed to 5 mg twice daily. -Coronary artery disease Trending well. Lasix. Amlodipine. -Hyperlipidemia Lipitor -Lower extremity edema could be from amlodipine -GERD Prilosec -BPH Flomax 0.4 mg a day -Primary osteoarthritis Pain medication as needed Patient's creatinine is 1.3. Will changed Eliquis to 5 mg twice daily. Cut back amiodarone to 100 mg a day. Care was discussed with the patient. Questions answered. Has external catheter. Past Medical History Past Medical History: Atrial Fibrillation, Atrial Flutter, Asthma, Coronary Artery Disease (CAD), Cancer, Heart Failure, Hearing Disorder / Deafness, Hyperlipidemia, Hypertension, Prostate Disorder Additional Past Medical History / Comment(s): Hx basal cell, squamous cell lesions. Thoracic aortic aneurysm. Hearing aids. BPH. History of Any Multi-Drug Resistant Organisms: None Reported Past Surgical History: Appendectomy, Heart Catheterization, Hernia Repair Additional Past Surgical History / Comment(s): Bilat Cataracts, Cardioversion x2 - last 08/2020, LIP LESION REMOVED Past Anesthesia/Blood Transfusion Reactions: No Reported Reaction Additional Past Anesthesia/Blood Transfusion Reaction / Comment(s): no blood transfusions Past Psychological History: No Psychological Hx Reported Smoking Status: Never smoker - Past Family History Mother Family Medical History: No Reported History Medications and Allergies Home Medications Medication Instructions Recorded Confirmed Type Montelukast Sodium [Singulair] 10 mg PO HS@199901/16/19 11/16/23 History Metoprolol Tartrate 25 mg PO BID@0800,199911/17/19 11/16/23 History Tamsulosin [Flomax] 0.4 mg PO DAILY@0800 11/17/19 09/03/24 History Amiodarone [Cordarone] 200 mg PO DAILY@79901/16/20 11/16/23 History amLODIPine [Norvasc] 2.5 mg PO DAILY@79901/20/22 11/16/23 History lisinopriL [Prinivil] 20 mg PO DAILY@79903/12/22 11/16/23 History Atorvastatin [Lipitor] 20 mg PO HS@199910/15/23 11/16/23 History Furosemide [Lasix] 20 mg PO BID@0800,159910/15/23 11/16/23 History traMADol HCL 50 mg PO Q6H PRN 10/15/23 11/16/23 History Apixaban [Eliquis] 2.5 mg PO BID@799,199911/16/23 11/16/23 History HYDROcodone/APAP 5-325MG [[place] 1 tab PO Q6H PRN 11/16/23 11/16/23 History 5-325] Midodrine HCl [ProAmantine] 2.5 mg PO BID PRN 11/16/23 11/16/23 History Omeprazole [PriLOSEC] 20 mg PO DAILY@79911/16/23 11/16/23 History Sennosides/Docusate Sodium 1 tab PO BID PRN 11/16/23 11/16/23 History [Senna-S 8.6-50 mg Tablet] Spironolactone [Aldactone] 25 mg PO DAILY@79911/16/23 11/16/23 History Allergies Allergy/AdvReac Type Severity Reaction Status Date / Time avocado Allergy Itching in Verified 11/16/23 10:40 throat Physical Exam Vitals: Vital Signs Temp Pulse Resp BP Pulse Ox 11/16/23 16:02 109/58 11/16/23 10:31 76 17 121/65 94 L 11/16/23 08:23 99.6 F 76 20 130/77 94 L Intake and Output 11/16/23 11/16/23 11/16/23 06:59 14:59 22:59 Other: Weight 83.461 kg Results CBC & Chem 7: 11/16/23 08:43 11/16/23 08:43 Labs: Abnormal Lab Results - Last 24 Hours (Table) 11/16/23 11/16/23 11/16/23 Range/Units 08:43 08:43 08:43 WBC 13.8 H (3.8-10.6) k/uL RBC 3.37 L (4.30-5.90) m/uL Hgb 10.5 L (13.0-17.5) gm/dL Hct 31.8 L (39.0-53.0) % Neutrophils # 11.4 H (1.3-7.7) k/uL Lymphocytes # 0.8 L (1.0-4.8) k/uL Monocytes # 1.1 H (0-1.0) k/uL Sodium 134 L (137-145) mmol/L BUN 24 H (9-20) mg/dL Creatinine 1.31 H (0.66-1.25) mg/dL Glucose 103 H (74-99) mg/dL Total Bilirubin 1.4 H (0.2-1.3) mg/dL Troponin I 0.035 H* (0.000-0.034) ng/mL Total Protein 5.9 L (6.3-8.2) g/dL Albumin 3.3 L (3.5-5.0) g/dL Urine Protein (Negative) Urine Ketones (Negative) Urine Blood (Negative) Ur Leukocyte Esterase (Negative) Urine WBC (0-5) /hpf Urine Bacteria (None) /hpf Urine Mucus (None) /hpf 11/16/23 Range/Units 08:43 WBC (3.8-10.6) k/uL RBC (4.30-5.90) m/uL Hgb (13.0-17.5) gm/dL Hct (39.0-53.0) % Neutrophils # (1.3-7.7) k/uL Lymphocytes # (1.0-4.8) k/uL Monocytes # (0-1.0) k/uL Sodium (137-145) mmol/L BUN (9-20) mg/dL Creatinine (0.66-1.25) mg/dL Glucose (74-99) mg/dL Total Bilirubin (0.2-1.3) mg/dL Troponin I (0.000-0.034) ng/mL Total Protein (6.3-8.2) g/dL Albumin (3.5-5.0) g/dL Urine Protein 1+ H (Negative) Urine Ketones 1+ H (Negative) Urine Blood Small H (Negative) Ur Leukocyte Esterase Moderate H (Negative) Urine WBC 72 H (0-5) /hpf Urine Bacteria Rare H (None) /hpf Urine Mucus Rare H (None) /hpf
[2023-11-16] MEDS ORDERED: APIXABAN 2.5 MG TABLET PO SCH (20:00)
[2023-11-16] MEDS: MONTELUKAST 10 MG TAB PO SCH (20:50)
[2023-11-16] MEDS: METOPROLOL TARTRATE 25 MG TAB PO SCH (20:50)
[2023-11-16] MEDS: ATORVASTATIN 20 MG TAB PO SCH (20:50)
[2023-11-16] MEDS: APIXABAN 5 MG TAB PO SCH (20:51)
[2023-11-16] MEDS: SENNOSIDES-DOCUSATE SODIUM 1 EACH TAB PO PRN (20:51)
[2023-11-17 03:59] LABS: African American GFR (CKD) 57 (>60 ml/min/1.73 sqM); Anion Gap 5 mmol/L; Blood Urea Nitrogen 23 mg/dL (9-20); Calcium 8.5 mg/dL (8.4-10.2); Carbon Dioxide 24 mmol/L (22-30); Chloride 107 mmol/L (98-107); Glucose 107 mg/dL (74-99); Non-African American GFR(CKD) 50 (>60 ml/min/1.73 sqM); Potassium 4.2 mmol/L (3.5-5.1); Sodium 136 mmol/L (137-145)
[2023-11-17] MEDS ORDERED: lisinopriL 20 MG TAB PO SCH (08:00)
[2023-11-17] MEDS ORDERED: AMIODARONE 200 MG TAB PO SCH (08:00)
[2023-11-17] MEDS ORDERED: SPIRONOLACTONE 25 MG TAB PO SCH (08:00)
[2023-11-17] MEDS ORDERED: TAMSULOSIN 0.4 MG CAP.ER.24H PO SCH (08:00)
[2023-11-17] MEDS: PANTOPRAZOLE 40 MG TABLET PO SCH (08:28)
[2023-11-17] MEDS: AMIODARONE 100 MG TAB PO SCH (08:28)
[2023-11-17] MEDS: amLODIPine 2.5 MG TAB PO SCH (08:29)
[2023-11-17 08:49] LABS: Basophils # (A) 0.02 X 10*3/uL (0.00-0.10); Basophils % (A) 0.2 %; Eosinophils % (A) 3.2 %; HCT 28.6 % (39.6-50.0); HGB 9.2 g/dL (13.0-17.0); Lymphocytes # (A) 0.75 X 10*3/uL (0.90-5.00); Lymphocytes % (A) 7.9 %; MCH 31.2 pg (27.0-32.0); MCHC 32.2 g/dL (32.0-37.0); MCV 96.9 FL (80.0-97.0); Mean Platelet Volume 11.3 FL (9.5-12.2); Monocytes # (A) 1.03 X 10*3/uL (0.20-1.00); Monocytes % (A) 10.9 %; NRBC Per 100 WBC 0 X 10*3/uL (0.00-0.01); Neutrophils # (A) 7.34 X 10*3/uL (1.80-7.70); Neutrophils % (A) 77.3 %; Platelet Count 207 X 10*3/uL (140-440); RBC 2.95 X 10*6/uL (4.40-5.60); RDW 13.6 % (11.5-14.5); WBC 9.49 X 10*3/uL (4.50-10.00)
--- NOTE | 2023-11-17 21:34 | P.PN ---
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 Chronic stable medical condition include atrial flutter fibrillation, asthma, CAD, CHF, hard of hearing, hypertension hyperlipidemia prostate disorder, thoracic arctic aneurysm. Patient lives at assisted living [facility]. Normally uses a walker. Beginning of October patient underwent a fracture of the left hip with surgical intervention. Has been using a wheelchair lately because of gets wobbly. Today patient was try to get in the wheelchair the brakes were not on and he fell. Appetite is fair. Urine stream is a bit slow. [place] to have UTI in the ER started on ceftriaxone. Patient denies any chest pain. Patient has some chronic lower extremity edema. To 65%. Moderate mitral regurgitation. Moderate tricuspid regurgitation. November 16: Admitted with UTI. Sitting up in the recliner. Has some urine frequency. Has external catheter. Eating well. Patient's son at the bedside. Discussed the use of a bedside urinal. Bedside commode. Will give 1 more day of IV antibiotic. Questions answered. Laxative. As needed. Patient is answered. Spoke to employment case manager. Active Medications Acetaminophen (Acetaminophen Tab 325 Mg Tab) 650 mg PO Q6HR PRN PRN Reason: Mild Pain or Fever > 100.5 Hydrocodone Bitart/Acetaminophen (Hydrocodone/Apap 5-325mg 1 Each Tab) 1 each PO Q6H PRN PRN Reason: Pain Amiodarone HCl (Amiodarone 100 Mg Tab) 100 mg PO DAILY [facility] Last Admin: 11/17/23 08:28 Dose: 100 mg Amlodipine Besylate (Amlodipine 2.5 Mg Tab) 2.5 mg PO DAILY@0800 [facility] Last Admin: 11/17/23 08:29 Dose: 2.5 mg Apixaban (Apixaban 5 Mg Tab) 5 mg PO BID [facility]; Protocol Last Admin: 11/17/23 21:21 Dose: 5 mg Atorvastatin Calcium (Atorvastatin 20 Mg Tab) 20 mg PO HS@2000 [facility] Last Admin: 11/17/23 21:21 Dose: 20 mg Ceftriaxone Sodium 2 gm/ (Sodium Chloride) 50 mls @ 100 mls/hr IVPB Q24HR [facility]; Protocol Last Admin: 11/17/23 08:27 Dose: 100 mls/hr Metoprolol Tartrate (Metoprolol Tartrate 25 Mg Tab) 25 mg PO BID@799,1999 [facility] Last Admin: 11/17/23 21:21 Dose: 25 mg Midodrine (Midodrine 5 Mg Tab) 2.5 mg PO BID PRN PRN Reason: SBP <110 Montelukast Sodium (Montelukast 10 Mg Tab) 10 mg PO HS@1999 [facility] Last Admin: 11/17/23 21:21 Dose: 10 mg Naloxone HCl (Naloxone 0.4 Mg/Ml 1 Ml Vial) 0.2 mg IV Q2M PRN PRN Reason: Opioid Reversal Pantoprazole Sodium (Pantoprazole 40 Mg Tablet) 40 mg PO DAILY@08 [facility] Last Admin: 11/17/23 08:28 Dose: 40 mg Senna/Docusate Sodium (Sennosides-Docusate Sodium 1 Each Tab) 1 each PO BID PRN PRN Reason: Constipation Last Admin: 11/17/23 08:34 Dose: 1 each Tamsulosin HCl (Tamsulosin 0.4 Mg Cap.Er.24h) 0.4 mg PO DAILY@08 [facility] Last Admin: 11/17/23 08:28 Dose: 0.4 mg Tramadol HCl (Tramadol 50 Mg Tab) 50 mg PO Q6H PRN PRN Reason: Pain Social history: Currently living in assisted living [facility]. No smoking. 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 Physical examination: VITAL SIGNS: 98.7, 67, 17, 121 x 63, 97% room air GENERAL: Up in a recliner, comfortable EYES: Pupils equal. Conjunctiva yvonne l. HEENT: External appearance of nose and ears normal, oral cavity grossly normal. Decrease in hearing NECK: JVD not raised; masses not palpable. HEART: First and second heart sounds are normal; edema present. LUNGS: Respiratory rate normal; clear to auscultation. ABDOMEN: Soft, nontender, liver spleen not palpable, no masses palpable. External urinary catheter PSYCH: Alert and oriented x3; mood and affect yvonne l. MUSCULOSKELETAL:No Clubbing/cyanosis;muscles-grossly intact. OA INVESTIGATIONS, reviewed in the clinical context: November 16: White count 9.4 hemoglobin 9.2 potassium 4.2 BUN 23 creatinine 1.31 November 16, 2023: White count 13.8 hemoglobin 10.5 platelets 216 potassium 4.4 BUN 24 creatinine 1.31 Troponin I 0.035, 0.026, 0.018 UA: Moderate Dukoral Estrace WBC 72 bacteria rare EKG tracing personally reviewed by me-normal sinus rhythm. Poor R wave progress ion anterior lead CT scan brain: Chronic changes. 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 Not excluded. Chest x-ray film personally reviewed by me-cardiomegaly Assessment plan: -Acute UTI with cystitis, likely causing asthenia weakness leading to fall: Better IV ceftriaxone -Chronic congestive heart failure from diastolic dysfunction EF 60 to 65%. Lasix -Chronic gait dysfunction does use a walker/wheelchair -Hard of hearing -Moderate mitral and tricuspid regurgitation -Normocytic anemia likely from underlying chronic kidney disease -Paroxysmal atrial fibrillation currently in sinus rhythm Decrease amiodarone to 100 mg a day. Eliquis changed to 5 mg twice daily. -Coronary artery disease . Lasix. Amlodipine. -Hyperlipidemia Lipitor -Chronic kidney disease stage III suspect nephrosclerosis Follow -Lower extremity edema could be from amlodipine -GERD Prilosec -BPH Flomax 0.4 mg a day -Primary osteoarthritis Pain medication as needed Lengthy discussion with patient's son. Questions answered. Plan for discharge tomorrow. Past Medical History Past Medical History: Atrial Fibrillation, Atrial Flutter, Asthma, Coronary Artery Disease (CAD), Cancer, Heart Failure, Hearing Disorder / Deafness, Hyperlipidemia, Hypertension, Prostate Disorder Additional Past Medical History / Comment(s): Hx basal cell, squamous cell lesions. Thoracic aortic aneurysm. Hearing aids. BPH. History of Any Multi-Drug Resistant Organisms: None Reported Past Surgical History: Appendectomy, Heart Catheterization, Hernia Repair Additional Past Surgical History / Comment(s): Bilat Cataracts, Cardioversion x2 - last 08/2020, LIP LESION REMOVED Past Anesthesia/Blood Transfusion Reactions: No Reported Reaction Additional Past Anesthesia/Blood Transfusion Reaction / Comment(s): no blood transfusions Past Psychological History: No Psychological Hx Reported Smoking Status: Never smoker
[2023-11-18 03:18] VITALS: TEMP 98.8
[2023-11-18] MEDS: bisacodyL 10 MG SUPP RECTAL STA (06:03)
[2023-11-18 07:48] VITALS: BP 109/58; RESP 20
[2023-11-18 10:05] VITALS: PULSE 67
--- NOTE | 2023-11-18 20:40 | P.DS ---
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 Chronic stable medical condition include atrial flutter fibrillation, asthma, CAD, CHF, hard of hearing, hypertension hyperlipidemia prostate disorder, thoracic arctic aneurysm. Patient lives at [facility]. Normally uses a walker. Beginning of October patient underwent a fracture of the left hip with surgical intervention. Has been using a wheelchair lately because of gets wobbly. Today patient was try to get in the wheelchair the brakes were not on and he fell. Appetite is fair. Urine stream is a bit slow. [place] to have UTI in the ER started on ceftriaxone. Patient denies any chest pain. Patient has some chronic lower extremity edema. To 65%. Moderate mitral regurgitation. Moderate tricuspid regurgitation. November 16: Admitted with UTI. Sitting up in the recliner. Has some urine frequency. Has external catheter. Eating well. Patient's son at the bedside. Discussed the use of a bedside urinal. Bedside commode. Will give 1 more day of IV antibiotic. Questions answered. Laxative. As needed. Patient is answered. Spoke to piano case maker. November 17: Sitting up in chair. Doing well. Did tolerate his diet. Patient be getting a bedside commode. Will complete 5 more days of Omnicef. Following medication changes will be done as discussed with the patient: -Lasix to be cut back to once a day. -Amiodarone cut back to 100 mg a day. -Amlodipine discontinued because blood pressure running on the lower side. Also causing edema. -Eliquis to be changed to 5 mg twice daily cardiac dose adjustment -Fluid restriction 2000 cc a day Discussion and discharge planning more than 35 minutes Social history: Currently living in [facility]. No smoking. 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 Conjunctiva yvonne l. HEENT: External appearance of nose and ears normal, oral cavity grossly normal. Decrease in hearing NECK: JVD not raised; masses not palpable. HEART: First and second heart sounds are normal; edema present. LUNGS: Respiratory rate normal; clear to auscultation. ABDOMEN: Soft, nontender, liver spleen not palpable, no masses palpable. External urinary catheter PSYCH: Alert and oriented x3; mood and affect yvonne l. MUSCULOSKELETAL:No Clubbing/cyanosis;muscles-grossly intact. OA INVESTIGATIONS, reviewed in the clinical context: November 16: White count 9.4 hemoglobin 9.2 potassium 4.2 BUN 23 creatinine 1.31 November 16, 2023: White count 13.8 hemoglobin 10.5 platelets 216 potassium 4.4 BUN 24 creatinine 1.31 Troponin I 0.035, 0.026, 0.018 UA: Moderate Dukoral Estrace WBC 72 bacteria rare EKG tracing personally reviewed by me-normal sinus rhythm. Poor R wave progression anterior lead CT scan brain: Chronic changes. 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 Not excluded. Chest x-ray film personally reviewed by me-cardiomegaly Assessment plan: -Acute UTI with cystitis, likely causing asthenia weakness leading to fall: Better IV ceftriaxone. Complete 5 days of Omnicef outpatient -Chronic congestive heart failure from diastolic dysfunction EF 60 to 65%. Lasix cut back to 20 mg a day. -Chronic gait dysfunction does use a walker/wheelchair -Hard of hearing -Moderate mitral and tricuspid regurgitation -Normocytic anemia likely from underlying chronic kidney disease -Paroxysmal atrial fibrillation currently in sinus rhythm Decrease amiodarone to 100 mg a day. Eliquis changed to 5 mg twice daily. -Coronary artery disease -Hyperlipidemia Lipitor -Chronic kidney disease stage III suspect nephrosclerosis Follow -Lower extremity edema could be from amlodipine -GERD Prilosec -BPH Flomax 0.4 mg a day -Primary osteoarthritis Pain medication as needed Disposition: [facility] Labs: CBC BMP 1 week Past Medical History Past Medical History: Atrial Fibrillation, Atrial Flutter, Asthma, Coronary Artery Disease (CAD), Cancer, Heart Failure, Hearing Disorder / Deafness, Hyperlipidemia, Hypertension, Prostate Disorder Additional Past Medical History / Comment(s): Hx basal cell, squamous cell lesions. Thoracic aortic aneurysm. Hearing aids. BPH. History of Any Multi-Drug Resistant Organisms: None Reported Past Surgical History: Appendectomy, Heart Catheterization, Hernia Repair Additional Past Surgical History / Comment(s): Bilat Cataracts, Cardioversion x2 - last 08/2020, LIP LESION REMOVED Past Anesthesia/Blood Transfusion Reactions: No Reported Reaction Additional Past Anesthesia/Blood Transfusion Reaction / Comment(s): no blood transfusions Past Psychological History: No Psychological Hx Reported Smoking Status: Never smoker Plan - Discharge Summary New Discharge Prescriptions: New Apixaban [Eliquis] 5 mg PO BID #60 tab Cefdinir [Omnicef] 300 mg PO Q12HR #10 capsule Furosemide [Lasix] 20 mg PO DAILY #1 tab Amiodarone [Cordarone] 100 mg PO DAILY #30 tab Acetaminophen Tab [Tylenol] 650 mg PO Q6HR PRN tab PRN Reason: Mild Pain Or Fever > 100.5 Continue Montelukast Sodium [Singulair] 10 mg PO HS@1999 Tamsulosin [Flomax] 0.4 mg PO DAILY@0800 Metoprolol Tartrate 25 mg PO BID@799,1999 Midodrine HCl [ProAmantine] 2.5 mg PO BID PRN PRN Reason: SBP <110 Spironolactone [Aldactone] 25 mg PO DAILY@0800 HYDROcodone/APAP 5-325MG [B[place]ite 5-325] 1 tab PO Q6H PRN PRN Reason: Pain traMADol HCL 50 mg PO Q6H PRN PRN Reason: Pain Atorvastatin [Lipitor] 20 mg PO HS@1999 Omeprazole [PriLOSEC] 20 mg PO DAILY@0800 Sennosides/Docusate Sodium [Senna-S 8.6-50 mg Tablet] 1 tab PO BID PRN PRN Reason: Constipation Changed lisinopriL [Prinivil] 20 mg PO HS #0 Discontinued Amiodarone [Cordarone] 200 mg PO DAILY@0800 amLODIPine [Norvasc] 2.5 mg PO DAILY@0800 Furosemide [Lasix] 20 mg PO BID@0800,1600 Apixaban [Eliquis] 2.5 mg PO BID@08,1999 Discharge Medication List Montelukast Sodium [Singulair] 10 mg PO HS@199901/16/19 [History] Metoprolol Tartrate 25 mg PO BID@0800,199911/17/19 [History] Tamsulosin [Flomax] 0.4 mg PO DAILY@0800 11/17/19 [History] Atorvastatin [Lipitor] 20 mg PO HS@199910/15/23 [History] traMADol HCL 50 mg PO Q6H PRN 10/15/23 [History] HYDROcodone/APAP 5-325MG [Bauxite 5-325] 1 tab PO Q6H PRN 11/16/23 [History] Midodrine HCl [ProAmantine] 2.5 mg PO BID PRN 11/16/23 [History] Omeprazole [PriLOSEC] 20 mg PO DAILY@0811/16/23 [History] Sennosides/Docusate Sodium [Senna-S 8.6-50 mg Tablet] 1 tab PO BID PRN 11/16/23 [History] Spironolactone [Aldactone] 25 mg PO DAILY@79911/16/23 [History] Acetaminophen Tab [Tylenol] 650 mg PO Q6HR PRN tab 11/18/23 [Rx] Amiodarone [Cordarone] 100 mg PO DAILY #30 tab 11/18/23 [Rx] Apixaban [Eliquis] 5 mg PO BID #60 tab 11/18/23 [Rx] Cefdinir [Omnicef] 300 mg PO Q12HR #10 capsule 11/18/23 [Rx] Furosemide [Lasix] 20 mg PO DAILY #1 tab 11/18/23 [Rx] lisinopriL [Prinivil] 20 mg PO HS #0 11/18/23 [Rx] Follow up Appointment(s)/Referral(s): Francis Reyes MD [Primary Care Provider] - 1-2 days Patient Instructions/Handouts: Urinary Tract Infection in Men (DC) Activity/Diet/Wound Care/Special Instructions: lasix and lisinopril are not new Discharge Disposition: TRANSFER TO SNF/ECF
== END 2023-11-18 12:54 | DRG 690 ==
LOC: EC 08:21 → 6NMEDSUR 10:49 → OBSVTOIN 11-18 08:41
PROVIDERS: ADMIT Hospitalist; ATTEND Hospitalist
DX: N30.00 Acute cystitis without hematuria (principal); I48.92 Unspecified atrial flutter; I13.0 Hypertensive heart and chronic kidney disease with heart failure and stage 1 through stage 4 chronic kidney disease, or unspecified chronic kidney disease; I50.9 Heart failure, unspecified; H91.90 Unspecified hearing loss, unspecified ear; E78.5 Hyperlipidemia, unspecified; I08.1 Rheumatic disorders of both mitral and tricuspid valves; I25.10 Atherosclerotic heart disease of native coronary artery without angina pectoris; I48.91 Unspecified atrial fibrillation; N18.30 Chronic kidney disease, stage 3 unspecified; J45.909 Unspecified asthma, uncomplicated; N40.0 Benign prostatic hyperplasia without lower urinary tract symptoms; W06.XXXA Fall from bed, initial encounter; Z79.01 Long term (current) use of anticoagulants; Z79.899 Other long term (current) drug therapy
CPT/HCPCS: 36415; 70450; 71046; 80048; 80053; 81001; 83605; 83735; 84484; 85025; 85610; 85730; 87040; 87636; 93005; 96361; 96365; 99285

== ENCOUNTER 2024-01-28 06:32 | Day surgery (SDC) | payer MEDICARE, MEDICAID ==
[~2024-01-28 06:32] MED LIST changes: +Pre Op ABX Message 1 EACH MISC MISCELLANE ONE; -SODIUM CHLORIDE 0.9% 1,000 ML IV SCH
[2024-01-28] MEDS ORDERED: ONDANSETRON 4 MG/2 ML VIAL IVP ONE (06:47)
[2024-01-28] MEDS ORDERED: HYDROmorphone 0.5 MG/0.5 ML SYRINGE IVP PRN (07:00)
[2024-01-28] MEDS ORDERED: MIDAZOLAM 2 MG/2 ML VIAL IV PRN (07:00)
[2024-01-28] MEDS: IV FLUID CONTINUATION 1,000 ML IV ONE (07:10)
[2024-01-28] MEDS: LACTATED RINGERS 1,000 ML IV SCH (07:11)
[2024-01-28 07:14] VITALS: TEMP 97
[2024-01-28] MEDS: DEXAMETHASONE SOD PHOSPHATE 4 MG/ML 1 ML VIAL IV ONE (07:20)
[2024-01-28] MEDS: ACETAMINOPHEN TAB 500 MG TAB PO PRN (07:20)
[2024-01-28] MEDS: HEPARIN SODIUM,PORCINE 5,000 UNIT/ML 1 ML VIAL SQ PRN (07:20)
[2024-01-28] MEDS ORDERED: ceFAZolin 1 GM/50 ML BAG (PMX) ONE (07:33)
[2024-01-28] MEDS ORDERED: PROPOFOL 10 MG/ML 20 ML VIAL IV ONE (07:33)
[2024-01-28] MEDS: SODIUM CHLORIDE 0.9% 100 ML with ceFAZolin 2,000 MG IV ONE (07:35)
[2024-01-28] MEDS: LIDOCAINE 1%-EPI 1:100,000 20 ML VIAL SQ ONE (07:53)
[2024-01-28 08:19] VITALS: RESP 16
[2024-01-28 08:33] VITALS: BP 127/73; PULSE 46
--- NOTE | 2024-01-28 09:19 | P.OP ---
Date of Procedure: 01/28/24 Preoperative Diagnosis: Right chest wall skin lesion Postoperative Diagnosis: Right chest wall skin lesion Procedure(s) Performed: Right chest wall skin lesion excision Anesthesia: MAC Surgeon: Dominick Otoole Estimated Blood Loss (ml): 5 Pathology: other (5 cm skin n lesion) Condition: stable Disposition: PACU Description of Procedure: Patient is placed on the op table in the supine position. He received IV sedation. His chest wall was prepped and draped you sterile fashion. Skin anesthetized 1% local Xylocaine. An elliptical skin incision was made around the chest wall lesion. Electrocautery the skin lesion was removed. The skin lesion measured 5 x 4 cm. A suture was placed on the medial portion of the skin lesion. Specimen to pathology. Hemostasis achieved. And then skin was closed interrupted 3-0 nylon suture. Sterile dressing applied. Patient tolerated well. Sent to recovery in stable condition.
== END 2024-01-28 08:46 | disposition home or self-care (01) ==
LOC: OR 06:32
PROVIDERS: ATTEND Surgery
DX: C44.529 Squamous cell carcinoma of skin of other part of trunk (principal); I11.0 Hypertensive heart disease with heart failure; I50.9 Heart failure, unspecified; E78.5 Hyperlipidemia, unspecified; I25.10 Atherosclerotic heart disease of native coronary artery without angina pectoris; I48.91 Unspecified atrial fibrillation; N40.0 Benign prostatic hyperplasia without lower urinary tract symptoms; J45.909 Unspecified asthma, uncomplicated; H91.90 Unspecified hearing loss, unspecified ear; I71.20 Thoracic aortic aneurysm, without rupture, unspecified; F10.90 Alcohol use, unspecified, uncomplicated; Z79.01 Long term (current) use of anticoagulants; Z79.899 Other long term (current) drug therapy; Z95.5 Presence of coronary angioplasty implant and graft; Z90.49 Acquired absence of other specified parts of digestive tract; Z98.890 Other specified postprocedural states
CPT/HCPCS: 88305; 11606; J1644; J1100; J0690 ×2; J2704